=== PATIENT | female | born 1965 | race Caucasian/White ===

== ENCOUNTER 2016-10-11 15:24 | Outpatient (CLI) | payer MEDICAID | END 2016-10-11 15:25 | disposition home or self-care (01) | DX: G47.33 Obstructive sleep apnea (adult) (pediatric) (principal) ==

== ENCOUNTER 2016-11-08 13:31 | Outpatient (CLI) | payer MEDICAID | END 2016-11-08 13:32 | disposition home or self-care (01) | DX: G47.33 Obstructive sleep apnea (adult) (pediatric) (principal) ==

== ENCOUNTER 2016-12-27 13:26 | Outpatient (CLI) | payer MEDICAID | END 2016-12-27 13:27 | disposition home or self-care (01) | DX: G47.33 Obstructive sleep apnea (adult) (pediatric) (principal) ==

== ENCOUNTER 2017-02-09 13:30 | Outpatient (CLI) | payer MEDICAID | END 2017-02-09 13:31 | disposition home or self-care (01) | DX: G47.33 Obstructive sleep apnea (adult) (pediatric) (principal) ==

== ENCOUNTER 2017-03-23 13:30 | Outpatient (CLI) | payer MEDICAID | END 2017-03-23 13:31 | disposition home or self-care (01) | LOC: SC 13:30 | PROVIDERS: ATTEND Nurse Practitioner Family | DX: G47.33 Obstructive sleep apnea (adult) (pediatric) (principal) | CPT/HCPCS: 99212; 99214 ==

== ENCOUNTER 2017-04-26 13:53 | Outpatient (CLI) | payer MEDICAID | END 2017-04-26 13:54 | disposition home or self-care (01) | LOC: SC 13:53 | PROVIDERS: ATTEND Nurse Practitioner Family | DX: G47.33 Obstructive sleep apnea (adult) (pediatric) (principal) | CPT/HCPCS: 99212; 99214 ==

== ENCOUNTER 2017-05-26 13:16 | Outpatient (CLI) | payer MEDICAID | END 2017-05-26 13:17 | disposition home or self-care (01) | LOC: SC 13:16 | PROVIDERS: ATTEND Nurse Practitioner Family | DX: G47.33 Obstructive sleep apnea (adult) (pediatric) (principal) | CPT/HCPCS: 99212; 99214 ==

== ENCOUNTER 2017-07-05 15:01 | Outpatient (CLI) | payer MEDICAID | END 2017-07-05 15:02 | disposition home or self-care (01) | LOC: SC 15:01 | PROVIDERS: ATTEND Nurse Practitioner Family | DX: G47.33 Obstructive sleep apnea (adult) (pediatric) (principal) | CPT/HCPCS: 99212; 99214 ==

== ENCOUNTER 2017-08-27 14:06 | Emergency (ER) | payer MEDICAID ==
[2017-08-27 14:21] VITALS: BP 122/74
--- NOTE | 2017-08-27 14:48 | XRAY Preliminary Report ---
Exam: XR HAND 3 VIEW RT IMPRESSION: Tiny ossific density adjacent to the distal interphalangeal joint of the fifth finger may represent an age indeterminate avulsion injury; correlate clinically. No other findings suspicious f or acute fracture or dislocation. [facility] SITE ID: [id number]
--- NOTE | 2017-08-27 14:51 | XRAY Report ---
EXAM: RIGHT HAND RADIOGRAPHY EXAM DATE: 08/27/2017 02:39 PM. CLINICAL HISTORY: Pain fingers s/p fingers vs car door. COMPARISON: None. TECHNIQUE: 3 views. FINDINGS: Bones: Tiny ossific density adjacent to the distal interphalangeal joint of the fifth finger may repr esent a tiny avulsion injury, age indeterminate. No other findings suspicious for fracture or disloca tion. Joints: Normal. No subluxations. Soft Tissues: Normal. No soft tissue swelling. IMPRESSION: Tiny ossific density adjacent to the distal interphalangeal joint of the fifth finger may represent an age indeterminate avulsion injury; correlate clinically. No other findings suspicious f or acute fracture or dislocation. [facility] Referring Provider Line: [phone] SITE ID: [id number]
--- NOTE | 2017-08-27 15:41 | ED Physician Documentation ---
History of Present Illness - Stated complaint Stated Complaint: R FINGER INJ - Chief complaint Chief Complaint: Ext Problem - History obtained from History obtained from: Patient (pt staes that she shur her right hand into a car door yesterday across the fingers and now she thinks that her joints lookd different.) Review of Systems Cardiac: reports: Other (no change in circulation to the right hand.) Skin: denies: Rash, Lesions, Laceration (s) Musculoskeletal: reports: Joint pain, Other (pain to her right hand.) PD PAST MEDICAL HISTORY - Past Medical History Cardiovascular: Hypertension Respiratory: Sleep apnea, CPAP use Neuro: Seizure disorder Endocrine/Autoimmune: Type 2 diabetes GI: None : None HEENT: None Psych: Depression, Anxiety Musculoskeletal: Osteoarthritis Derm: None - Past Surgical History Past Surgical History: Yes General: Appendectomy Ortho: Carpal Tunnel surgery - Present Medications Home Medications: Ambulatory Orders Medication Instructions Recorded Confirmed Atomoxetine HCl [Strattera] 60 mg PO DAILY 04/06/13 08/27/17 PARoxetine [Paxil] 50 mg PO DAILY 04/06/13 08/27/17 Polyethylene Glycol 3350 [Miralax] 17 gm PO BID 04/06/13 08/27/17 lamoTRIgine [Lamictal Xr] 300 mg PO DAILY 04/06/13 08/27/17 Lisinopril 10 mg PO DAILY 02/21/15 08/27/17 Ascorbic Acid [Vitamin C] 1,000 mg PO DAILY 10/30/15 08/27/17 Calcium Carb/Mag Ox/Zinc Sulf [Hm 1 each PO DAILY 10/30/15 08/27/17 Tmhtmem-Jrfmlhtbs-Gysp Cplt] Cholecalciferol (Vitamin D3) 1,000 unit PO DAILY 10/30/15 08/27/17 [Vitamin D] Cholecalciferol (Vitamin D3) 1,000 unit PO DAILY 10/30/15 08/27/17 [Vitamin D] Multivitamin [Multivitamins] 1 each PO DAILY 10/30/15 08/27/17 - Allergies Allergies/Adverse Reactions: Allergies Allergy/AdvReac Type Severity Reaction Status Date / Time sertraline [From Zoloft] AdvReac Respiratory Verified 08/27/17 14:22 - Social History Does the pt smoke?: No Smoking Status: Never smoker Does the pt drink ETOH?: No Does the pt have substance abuse?: No - Immunizations Immunizations are current?: Yes - POLST Patient has POLST: No PD ED PE NORMAL - Vitals Vital signs reviewed: Yes - General General: Alert and oriented X 3 - HEENT HEENT: Atraumatic, Moist mucous membranes - Cardiac Cardiac: Strong equal pulses (radial) - Derm Derm: Normal color, Warm and dry, No rash - Extremities Extremities: Other (pt with full ROM of all of the joints in her right hand. no swelling, no deformity of the right hand. ) - Neuro Neuro: Other (sensation intact to light touch to the right hand) Results - Vitals Vitals: Vital Signs - 24 hr 08/27/17 14:18 Temperature 37 C Heart Rate 100 Respiratory 16 Rate Blood Pressure 122/74 O2 Saturation 100 Oxygen O2 Source Room air - Rads (name of study) hand Radiology: Final report received PD MEDICAL DECISION MAKING - ED course Complexity details: d/w patient ED course: pt with full ROM of all of the joints of the right hand. is not tender on the little finger so i doubt that the x-ray finding is new. i do not observe the concerns that she has with regard to the joints of her hand. Discussed with her. steffany LEE. Departure - Departure Disposition: 01 Home, Self Care Clinical Impression: Contusion of right hand Condition: Good Instructions: RON LEE Follow-Up: primary,care provider [Other] Comments: Follow up with your primary care provider. Return to the ER for any new symptoms.
== END 2017-08-27 16:13 | disposition home or self-care (01) ==
LOC: ED 14:06
DX: S60.221A Contusion of right hand, initial encounter (principal); W20.8XXA Other cause of strike by thrown, projected or falling object, initial encounter; I10 Essential (primary) hypertension; G47.30 Sleep apnea, unspecified; E11.9 Type 2 diabetes mellitus without complications; M19.90 Unspecified osteoarthritis, unspecified site
CPT/HCPCS: 99282; 99283

== ENCOUNTER 2017-08-29 14:28 | Outpatient (CLI) | payer MEDICAID ==
[2017-08-29 19:43] LABS: HEMOGLOBIN A1C 0.63 g/dL
== END 2017-08-29 14:29 ==
LOC: LAB.N 14:28
PROVIDERS: ATTEND Nurse Practitioner Gerontology
DX: E11.9 Type 2 diabetes mellitus without complications (principal)
CPT/HCPCS: 36415; 83036

== ENCOUNTER 2017-09-28 13:48 | Outpatient (CLI) | payer MEDICAID | END 2017-09-28 13:49 | disposition home or self-care (01) | LOC: SC 13:48 | PROVIDERS: ATTEND Nurse Practitioner Family | DX: G47.33 Obstructive sleep apnea (adult) (pediatric) (principal) | CPT/HCPCS: 99212; 99214 ==

== ENCOUNTER 2017-10-24 16:05 | Outpatient (CLI) | payer MEDICAID | END 2017-10-24 16:06 | disposition home or self-care (01) | LOC: DI 16:05 | PROVIDERS: ATTEND Obstetrics & Gynecology | DX: Z53.9 Procedure and treatment not carried out, unspecified reason (principal) ==

== ENCOUNTER 2017-10-31 10:01 | Outpatient (CLI) | payer MEDICAID ==
[2017-10-31 12:47] LABS: BASOPHILS # (AUTO) 0.1 10^3/uL (0.0-0.1); BASOPHILS % (AUTO) 1.3 %; EOSINOPHILS # (AUTO) 0.1 10^3/uL (0.0-0.7); HGB - HEMOGLOBIN 11.4 g/dL (12.0-16.0); LYMPHOCYTES # (AUTO) 0.7 10^3/uL (1.5-3.5); LYMPHOCYTES % (AUTO) 15.9 %; MEAN CORPUSCULAR HEMOGLOBIN 27.3 pg (27.0-31.0); MEAN CORPUSCULAR HGB CONC 34.6 g/dL (32.0-36.0); MEAN CORPUSCULAR VOLUME 78.8 fL (81.0-99.0); MEAN PLATELET VOLUME 7.2 fL (7.9-10.8); MONOCYTES # (AUTO) 0.3 10^3/uL (0.0-1.0); MONOCYTES % (AUTO) 7.1 %; NEUTROPHILS # (AUTO) 3.1 10^3/uL (1.5-6.6); NEUTROPHILS % (AUTO) 72.7 %; PLT - PLATELET COUNT 322 10^3/uL (130-450); RED BLOOD COUNT 4.18 10^6/uL (4.20-5.40); RED CELL DISTRIBUTION WIDTH 15.3 % (12.0-15.0); WHITE BLOOD COUNT 4.3 x10^3/uL (4.8-10.8)
[2017-10-31 13:15] LABS: ALBUMIN 4.2 g/dL (3.2-5.5); ALBUMIN/GLOBULIN RATIO 1.5 (1.0-2.2); ALKALINE PHOSPHATASE 55 IU/L (42-121); ALT ALANINE AMINOTRANSFERASE 23 IU/L (10-60); AST ASPARTATE AMINOTRANSFERASE 29 IU/L (10-42); BILIRUBIN,TOTAL 0.6 mg/dL (0.2-1.0); BUN - BLOOD UREA NITROGEN 21 mg/dL (6-20); CALCIUM 9.2 mg/dL (8.5-10.3); CARBON DIOXIDE - CO2 26 mmol/L (21-32); CHLORIDE 103 mmol/L (101-111); CHOL/HDL RATIO 3.2 (<4.4); CHOLESTEROL 194 mg/dL; CREATININE 0.9 mg/dL (0.4-1.0); GFR - MDRD 66 (>89); GLUCOSE 111 mg/dL (70-100); HDL CHOLESTEROL 60 mg/dL; LDL CHOLESTEROL,CALCULATED 123 mg/dL; LDL/HDL RATIO 2.1 (<4.4); SODIUM 136 mmol/L (135-145); VLDL CHOLESTEROL 11 mg/dL
== END 2017-10-31 10:02 | disposition home or self-care (01) ==
LOC: LAB.N 10:01
PROVIDERS: ATTEND Nurse Practitioner Gerontology
DX: Z13.9 Encounter for screening, unspecified (principal)
CPT/HCPCS: 36415; 80053; 80061; 80175; 83721; 84443; 85025

== ENCOUNTER 2017-11-21 14:34 | Outpatient (CLI) | payer MEDICAID ==
--- NOTE | 2017-11-21 15:43 | Mammography Report ---
DIGITAL DIAGNOSTIC BILATERAL MAMMOGRAM: 11/21/2017 CLINICAL INDICATION: Focal pain in the left upper outer periareolar breast. TECHNIQUE: Bilateral CC and MLO views, left true lateral view. Markers were placed at the site of maximal tenderness identified by the patient. COMPARISON: 07/15/2016, 01/13/2016, 06/30/2015, 11/22/2014, 05/20/2014, 05/03/2014, 05/24/2013, 02/14/2012, 11/06/2010, 05/11/2010. FINDINGS: The breasts demonstrate heterogeneously dense fibroglandular parenchyma bilaterally. Coarse and punctate, typically benign calcifications are present. No suspicious masses, clustered microcalcifications, or regions of architectural distortion are identified. Specifically, no mammographic abnormality is appreciated in the region of pain identified by the patient in the left upper outer anterior breast. IMPRESSION: BENIGN FINDINGS. RECOMMENDATION: ROUTINE ANNUAL SCREENING UNLESS OTHERWISE CLINICALLY INDICATED. BIRADS CATEGORY 2-BENIGN FINDINGS. STANDARD QUALIFYING STATEMENTS: 1. This examination was reviewed with the aid of Computer-Aided Detection (CAD). 2. A negative or benign imaging report should not delay biopsy if clinically suspicious findings are present. Consider surgical consultation if warranted. More than 5% of cancers are not identified by imaging. 3. Dense breasts may obscure an underlying neoplasm. TD: 11/21/2017 15:42
== END 2017-11-21 14:35 | disposition home or self-care (01) ==
LOC: DI 14:34
PROVIDERS: ATTEND Obstetrics & Gynecology
DX: N64.4 Mastodynia (principal)
CPT/HCPCS: 77066

== ENCOUNTER 2017-11-28 15:02 | Outpatient (CLI) | payer MEDICAID | END 2017-11-28 15:03 | disposition home or self-care (01) | LOC: SC 15:02 | PROVIDERS: ATTEND Nurse Practitioner Family | DX: G47.33 Obstructive sleep apnea (adult) (pediatric) (principal) | CPT/HCPCS: 99212; 99214 ==

== ENCOUNTER 2018-01-03 10:06 | Outpatient (CLI) | payer MEDICAID | END 2018-01-03 10:07 | disposition home or self-care (01) | LOC: SC 10:06 | PROVIDERS: ATTEND Nurse Practitioner Family | DX: G47.33 Obstructive sleep apnea (adult) (pediatric) (principal) | CPT/HCPCS: 99212; 99214 ==

== ENCOUNTER 2018-02-13 14:55 | Outpatient (CLI) | payer MEDICAID | END 2018-02-13 14:56 | disposition home or self-care (01) | LOC: SC 14:55 | PROVIDERS: ATTEND Nurse Practitioner Family | DX: G47.33 Obstructive sleep apnea (adult) (pediatric) (principal) | CPT/HCPCS: 99214 ==

== ENCOUNTER 2018-04-17 13:26 | Outpatient (CLI) | payer MEDICAID | END 2018-04-17 13:27 | disposition home or self-care (01) | LOC: SC 13:26 | PROVIDERS: ATTEND Nurse Practitioner Family | DX: G47.33 Obstructive sleep apnea (adult) (pediatric) (principal) | CPT/HCPCS: 99212; 99214 ==

== ENCOUNTER 2018-04-26 15:14 | Emergency (ER) | payer MEDICAID ==
[2018-04-26 15:22] VITALS: BP 133/81
--- NOTE | 2018-04-26 16:21 | ED Physician Documentation ---
PD HPI LOWER EXT INJURY - Stated complaint Stated Complaint: RT KNEE PX - Chief complaint Chief Complaint: Ext Problem - History obtained from History obtained from: Patient PD PAST MEDICAL HISTORY - Past Medical History Cardiovascular: Hypertension Respiratory: Sleep apnea, CPAP use Endocrine/Autoimmune: Type 2 diabetes GI: None : None HEENT: None Psych: Depression, Anxiety Musculoskeletal: Osteoarthritis Derm: None - Past Surgical History Past Surgical History: Yes General: Appendectomy Ortho: Carpal Tunnel surgery - Present Medications Home Medications: Ambulatory Orders Medication Instructions Recorded Confirmed Atomoxetine HCl [Strattera] 60 mg PO DAILY 04/06/13 08/27/17 PARoxetine [Paxil] 50 mg PO DAILY 04/06/13 08/27/17 Polyethylene Glycol 3350 [Miralax] 17 gm PO BID 04/06/13 08/27/17 lamoTRIgine [Lamictal Xr] 300 mg PO DAILY 04/06/13 08/27/17 Lisinopril 10 mg PO DAILY 02/21/15 08/27/17 Ascorbic Acid [Vitamin C] 1,000 mg PO DAILY 10/30/15 08/27/17 Calcium Carb/Mag Ox/Zinc Sulf [Hm 1 each PO DAILY 10/30/15 08/27/17 Ijqvwkm-Wrckrnjge-Auvq Cplt] Cholecalciferol (Vitamin D3) 1,000 unit PO DAILY 10/30/15 08/27/17 [Vitamin D] Cholecalciferol (Vitamin D3) 1,000 unit PO DAILY 10/30/15 08/27/17 [Vitamin D] Multivitamin [Multivitamins] 1 each PO DAILY 10/30/15 08/27/17 - Allergies Allergies/Adverse Reactions: Allergies Allergy/AdvReac Type Severity Reaction Status Date / Time sertraline [From Zoloft] AdvReac Respiratory Verified 04/26/18 15:23 - Social History Does the pt smoke?: No Smoking Status: Never smoker Does the pt drink ETOH?: No Does the pt have substance abuse?: No - Immunizations Immunizations are current?: Yes - POLST Patient has POLST: No Results - Vitals Vitals: Vital Signs - 24 hr 04/26/18 15:19 Temperature 36.4 C L Heart Rate 68 Respiratory 16 Rate Blood Pressure 133/81 H O2 Saturation 99 Oxygen O2 Source Room air PD MEDICAL DECISION MAKING - Sepsis Event Vital Signs: Vital Signs - 24 hr 04/26/18 15:19 Temperature 36.4 C L Heart Rate 68 Respiratory 16 Rate Blood Pressure 133/81 H O2 Saturation 99 Oxygen O2 Source Room air
== END 2018-04-26 17:00 | disposition left against medical advice (07) ==
LOC: ED 15:14
DX: Z53.21 Procedure and treatment not carried out due to patient leaving prior to being seen by health care provider (principal)

== ENCOUNTER 2018-05-05 15:01 | Outpatient (CLI) | payer MEDICAID ==
[2018-05-05 18:54] LABS: BASOPHILS % (AUTO) 0.5 %; EOSINOPHILS # (AUTO) 0.2 10^3/uL (0.0-0.7); EOSINOPHILS % (AUTO) 3.6 %; HGB - HEMOGLOBIN 12.9 g/dL (12.0-16.0); LYMPHOCYTES % (AUTO) 15.5 %; MEAN CORPUSCULAR HEMOGLOBIN 29.6 pg (27.0-31.0); MEAN CORPUSCULAR HGB CONC 33.4 g/dL (32.0-36.0); MEAN CORPUSCULAR VOLUME 88.6 fL (81.0-99.0); MEAN PLATELET VOLUME 7.6 fL (7.9-10.8); MONOCYTES # (AUTO) 0.4 10^3/uL (0.0-1.0); NEUTROPHILS % (AUTO) 74.4 %; PLT - PLATELET COUNT 309 10^3/uL (130-450); RED BLOOD COUNT 4.37 10^6/uL (4.20-5.40); RED CELL DISTRIBUTION WIDTH 15.2 % (12.0-15.0); WHITE BLOOD COUNT 6.7 x10^3/uL (4.8-10.8)
[2018-05-05 19:46] LABS: ALBUMIN 3.8 g/dL (3.2-5.5); ALBUMIN/GLOBULIN RATIO 1.2 (1.0-2.2); BILIRUBIN,TOTAL 0.5 mg/dL (0.2-1.0); CALCIUM 9.2 mg/dL (8.5-10.3); CREATININE 0.7 mg/dL (0.4-1.0); TOTAL PROTEIN 7.1 g/dL (6.7-8.2)
== END 2018-05-05 15:02 | disposition home or self-care (01) ==
LOC: LAB.N 15:01
PROVIDERS: ATTEND Nurse Practitioner
DX: K64.8 Other hemorrhoids (principal); K64.4 Residual hemorrhoidal skin tags; K62.5 Hemorrhage of anus and rectum
CPT/HCPCS: 36415; 80053; 85025

== ENCOUNTER 2018-05-16 16:50 | Outpatient (CLI) | payer MEDICAID | END 2018-05-16 16:51 | disposition home or self-care (01) | LOC: LAB.R 16:50 | PROVIDERS: ATTEND Nurse Practitioner | DX: K64.8 Other hemorrhoids (principal); K64.4 Residual hemorrhoidal skin tags; K62.5 Hemorrhage of anus and rectum | CPT/HCPCS: 82270 ==

== ENCOUNTER 2018-05-19 02:12 | Emergency (ER) | payer MEDICAID ==
[2018-05-19 03:19] LABS: BILIRUBIN,URINE NEGATIVE (NEGATIVE); GLUCOSE, URINE (UA) NEGATIVE (NEGATIVE); KETONES,URINE (UA) NEGATIVE (NEGATIVE); LEUKOCYTE ESTERASE, URINE NEGATIVE (NEGATIVE); NITRITE,URINE NEGATIVE (NEGATIVE); OCCULT BLOOD,URINE NEGATIVE (NEGATIVE); PH,URINE 6.5 PH (5.0-7.5); PROTEIN,URINE NEGATIVE (NEGATIVE); UROBILINOGEN,URINE 0.2 (NORMAL) E.U./dL (NORMAL)
[2018-05-19 03:21] LABS: CLARITY,URINE CLEAR (CLEAR); HCG UR QUAL NEGATIVE
--- NOTE | 2018-05-19 04:34 | ED Physician Documentation ---
History of Present Illness - Stated complaint Stated Complaint: FEMALE - Chief complaint Chief Complaint: Abd Pain - History obtained from History obtained from: Patient - History of Present Illness Timing: How many days ago (2-3), Other (episodic for a few years, but has not seen a doctor for this, as episodes have been mild and self limited. past few days, increasingly frequent episodes that take longer to resolve) Pain level max: 8 Pain level now: 1 Quality: sharp Improved by: nothing Worsened by: eating Review of Systems Constitutional: reports: Reviewed and negative Cardiac: reports: Reviewed and negative Respiratory: reports: Reviewed and negative GI: reports: Abdominal Pain. denies: Nausea, Vomiting, Constipation, Diarrhea : denies: Dysuria, Frequency Musculoskeletal: denies: Back pain PD PAST MEDICAL HISTORY - Past Medical History Past Medical History: Yes Cardiovascular: Hypertension Respiratory: Sleep apnea, CPAP use Endocrine/Autoimmune: Type 2 diabetes GI: None : None HEENT: None Psych: Depression, Anxiety Musculoskeletal: Osteoarthritis Derm: None - Past Surgical History Past Surgical History: Yes General: Appendectomy Ortho: Carpal Tunnel surgery - Present Medications Home Medications: Ambulatory Orders Medication Instructions Recorded Confirmed Atomoxetine HCl [Strattera] 60 mg PO DAILY 04/06/13 08/27/17 PARoxetine [Paxil] 50 mg PO DAILY 04/06/13 08/27/17 Polyethylene Glycol 3350 [Miralax] 17 gm PO BID 04/06/13 08/27/17 lamoTRIgine [Lamictal Xr] 300 mg PO DAILY 04/06/13 08/27/17 Lisinopril 10 mg PO DAILY 02/21/15 08/27/17 Ascorbic Acid [Vitamin C] 1,000 mg PO DAILY 10/30/15 08/27/17 Calcium Carb/Mag Ox/Zinc Sulf [Hm 1 each PO DAILY 10/30/15 08/27/17 Rihswql-Wqmzjixvf-Tjce Cplt] Cholecalciferol (Vitamin D3) 1,000 unit PO DAILY 10/30/15 08/27/17 [Vitamin D] Cholecalciferol (Vitamin D3) 1,000 unit PO DAILY 10/30/15 08/27/17 [Vitamin D] Multivitamin [Multivitamins] 1 each PO DAILY 10/30/15 08/27/17 - Allergies Allergies/Adverse Reactions: Allergies Allergy/AdvReac Type Severity Reaction Status Date / Time sertraline [From Zoloft] AdvReac Respiratory Verified 05/19/18 02:24 - Social History Does the pt smoke?: No Smoking Status: Never smoker Does the pt drink ETOH?: No Does the pt have substance abuse?: No - Immunizations Immunizations are current?: Yes - POLST Patient has POLST: No PD ED PE NORMAL - Vitals Vital signs reviewed: Yes - General General: Alert and oriented X 3, No acute distress, Well developed/nourished - Cardiac Cardiac: RRR, No murmur - Respiratory Respiratory: No respiratory distress, Clear bilaterally - Abdomen Abdomen: Soft, Non tender, Non distended - Back Back: No CVA TTP - Derm Derm: Normal color, Warm and dry, No rash Results - Vitals Vitals: Vital Signs - 24 hr 05/19/18 05/19/18 05/19/18 05:16 06:58 07:27 Temperature 36.7 C 36.7 C 97.9 C H Heart Rate 72 70 74 Respiratory 16 14 16 Rate Blood Pressure 119/72 120/72 124/76 O2 Saturation 98 100 97 Oxygen O2 Source Room air - Labs Labs: Laboratory Tests 05/19/18 05/19/18 05/19/18 02:50 02:50 05:28 WBC 5.0 RBC 4.11 L Hgb 12.1 Hct 36.7 L MCV 89.3 MCH 29.5 MCHC 33.0 RDW 14.4 Plt Count 309 MPV 7.0 L Neut # (Auto) 3.3 Lymph # (Auto) 1.1 L [place] # (Auto) 0.3 Eos # (Auto) 0.3 Baso # (Auto) 0.1 Absolute Nucleated RBC 0.00 Nucleated RBC % 0.0 Sodium Potassium Chloride Carbon Dioxide Anion Gap BUN Creatinine Estimated GFR (MDRD) Glucose Calcium Total Bilirubin AST ALT Alkaline Phosphatase Total Protein Albumin Globulin Albumin/Globulin Ratio Lipase Urine Color YELLOW Urine Clarity CLEAR Urine pH 6.5 Ur Specific [place] <=1.005 <1.005 Urine Protein NEGATIVE Urine Glucose (UA) NEGATIVE Urine Ketones NEGATIVE Urine Occult Blood NEGATIVE Urine Nitrite NEGATIVE Urine Bilirubin NEGATIVE Urine Urobilinogen 0.2 (NORMAL) Ur Leukocyte Esterase NEGATIVE Ur Microscopic Review NOT INDICATED Urine Culture Comments NOT INDICATED Urine HCG, Qual NEGATIVE 05/19/18 05:28 WBC RBC Hgb Hct MCV MCH MCHC RDW Plt Count MPV Neut # (Auto) Lymph # (Auto) [place] # (Auto) Eos # (Auto) Baso # (Auto) Absolute Nucleated RBC Nucleated RBC % Sodium 137 Potassium 4.2 Chloride 104 Carbon Dioxide 28 Anion Gap 5.0 L BUN 24 H Creatinine 0.8 Estimated GFR (MDRD) 76 L Glucose 129 H Calcium 8.9 Total Bilirubin 0.3 AST 25 ALT 26 Alkaline Phosphatase 58 Total Protein 6.9 Albumin 3.9 Globulin 3.0 Albumin/Globulin Ratio 1.3 Lipase 33 Urine Color Urine Clarity Urine pH Ur Specific [place] Urine Protein Urine Glucose (UA) Urine Ketones Urine Occult Blood Urine Nitrite Urine Bilirubin Urine Urobilinogen Ur Leukocyte Esterase Ur Microscopic Review Urine Culture Comments Urine HCG, Qual - Rads (name of study) RUQ US Radiology: Prelim report reviewed, See rad report PD MEDICAL DECISION MAKING - ED course Complexity details: reviewed results, re-evaluated patient, considered differential, d/w patient - Sepsis Event Vital Signs: Vital Signs - 24 hr 05/19/18 05/19/18 05/19/18 05:16 06:58 07:27 Temperature 36.7 C 36.7 C 97.9 C H Heart Rate 72 70 74 Respiratory 16 14 16 Rate Blood Pressure 119/72 120/72 124/76 O2 Saturation 98 100 97 Oxygen O2 Source Room air Departure - Departure Disposition: 01 Home, Self Care Clinical Impression: Abdominal pain Condition: Good Instructions: ED Abdominal Pain Unkn Cause Follow-Up: [facility] [Provider Group] [facility] [Provider Group] Comments: Follow up with your primary care provider; call to arrange for next available appointment. As we discussed, I recommend you take either Prilosec or Nexium once per day for 2 weeks. Both of these are available [id number]: no prescription is required. These are acid-reducing medications and often help with symptoms due to gastritis or ulcer, which might be the cause of your symptoms. Discharge Date/Time: 05/19/18 07:40
[2018-05-19 05:40] LABS: BASOPHILS # (AUTO) 0.1 10^3/uL (0.0-0.1); BASOPHILS % (AUTO) 1.1 %; EOSINOPHILS # (AUTO) 0.3 10^3/uL (0.0-0.7); EOSINOPHILS % (AUTO) 5.3 %; HGB - HEMOGLOBIN 12.1 g/dL (12.0-16.0); LYMPHOCYTES # (AUTO) 1.1 10^3/uL (1.5-3.5); LYMPHOCYTES % (AUTO) 22.1 %; MEAN CORPUSCULAR HEMOGLOBIN 29.5 pg (27.0-31.0); MEAN CORPUSCULAR VOLUME 89.3 fL (81.0-99.0); MONOCYTES # (AUTO) 0.3 10^3/uL (0.0-1.0); MONOCYTES % (AUTO) 5.8 %; NEUTROPHILS # (AUTO) 3.3 10^3/uL (1.5-6.6); NEUTROPHILS % (AUTO) 65.7 %; PLT - PLATELET COUNT 309 10^3/uL (130-450); RED BLOOD COUNT 4.11 10^6/uL (4.20-5.40); RED CELL DISTRIBUTION WIDTH 14.4 % (12.0-15.0)
[2018-05-19 05:53] LABS: ALBUMIN 3.9 g/dL (3.2-5.5); ALBUMIN/GLOBULIN RATIO 1.3 (1.0-2.2); BILIRUBIN,TOTAL 0.3 mg/dL (0.2-1.0); CALCIUM 8.9 mg/dL (8.5-10.3); CREATININE 0.8 mg/dL (0.4-1.0); TOTAL PROTEIN 6.9 g/dL (6.7-8.2)
--- NOTE | 2018-05-19 06:38 | Ultrasound Report ---
Procedure Date: 05/19/2018 Accession Number: [id number] / [id number] Procedure: US - Abdomen Limited CPT Code: FULL RESULT: EXAM: ABDOMEN ULTRASOUND LIMITED, RUQ EXAM DATE: 05/19/2018 05:50 AM. CLINICAL HISTORY: RUQ pain. COMPARISON: ABDOMEN 08/15/2009. TECHNIQUE: Real-time scanning was performed with static images obtained. FINDINGS: Liver: Normal in size and echotexture. 17.7 cm. Main portal vein flow: Hepatopetal. Gallbladder: Normal. No stones, wall thickening, or sonographic Davidson's sign. Biliary System: CBD measures 3 mm. No intrahepatic or extrahepatic ductal dilatation. Other: No free fluid. No right hydronephrosis. IMPRESSION: Normal. No cholelithiasis or cholecystitis. [facility]
[2018-05-19 07:28] VITALS: BP 124/76
== END 2018-05-19 07:40 | disposition home or self-care (01) ==
LOC: ED 02:12
DX: R10.9 Unspecified abdominal pain (principal); I10 Essential (primary) hypertension; E11.9 Type 2 diabetes mellitus without complications
CPT/HCPCS: 36415; 76705; 80053; 81001; 81003; 81025; 83690; 85025; 87086; 93005; 99283

== ENCOUNTER 2018-06-15 20:29 | Emergency (ER) | payer MEDICAID ==
[2018-06-15 21:17] LABS: BILIRUBIN,URINE NEGATIVE (NEGATIVE); CLARITY,URINE CLEAR (CLEAR); GLUCOSE, URINE (UA) NEGATIVE (NEGATIVE); KETONES,URINE (UA) NEGATIVE (NEGATIVE); LEUKOCYTE ESTERASE, URINE NEGATIVE (NEGATIVE); NITRITE,URINE NEGATIVE (NEGATIVE); OCCULT BLOOD,URINE NEGATIVE (NEGATIVE); PROTEIN,URINE NEGATIVE (NEGATIVE); UROBILINOGEN,URINE 0.2 (NORMAL) E.U./dL (NORMAL)
--- NOTE | 2018-06-15 21:43 | ED Physician Documentation ---
PD HPI FEMALE - Stated complaint Stated Complaint: FEMALE /BACK PX - Chief complaint Chief Complaint: UTI - History obtained from History obtained from: Patient - History of Present Illness Timing - onset: Other (She had a bladder infection about a month ago treated with Cipro. More recently over the last 2 weeks or so she has intermittent dysuria and feeling like she is has incomplete bladder emptying and frequency with occasional right flank pain. No fevers, chills, nausea, vomiting. No vaginal discharge.) Review of Systems Constitutional: denies: Fever, Chills GI: denies: Abdominal Pain, Nausea, Vomiting, Constipation, Diarrhea : reports: Dysuria, Frequency. denies: Incontinent, Hematuria PD PAST MEDICAL HISTORY - Past Medical History Cardiovascular: Hypertension Respiratory: Sleep apnea, CPAP use Endocrine/Autoimmune: Type 2 diabetes GI: None : None HEENT: None Psych: Depression, Anxiety Musculoskeletal: Osteoarthritis Derm: None - Past Surgical History Past Surgical History: Yes General: Appendectomy Ortho: Carpal Tunnel surgery - Present Medications Home Medications: Ambulatory Orders Medication Instructions Recorded Confirmed Atomoxetine HCl [Strattera] 60 mg PO DAILY 04/06/13 08/27/17 PARoxetine [Paxil] 50 mg PO DAILY 04/06/13 08/27/17 Polyethylene Glycol 3350 [Miralax] 17 gm PO BID 04/06/13 08/27/17 lamoTRIgine [Lamictal Xr] 300 mg PO DAILY 04/06/13 08/27/17 Lisinopril 10 mg PO DAILY 02/21/15 08/27/17 Ascorbic Acid [Vitamin C] 1,000 mg PO DAILY 10/30/15 08/27/17 Calcium Carb/Mag Ox/Zinc Sulf [Hm 1 each PO DAILY 10/30/15 08/27/17 Cnahxla-Baompelun-Zmja Cplt] Cholecalciferol (Vitamin D3) 1,000 unit PO DAILY 10/30/15 08/27/17 [Vitamin D] Cholecalciferol (Vitamin D3) 1,000 unit PO DAILY 10/30/15 08/27/17 [Vitamin D] Multivitamin [Multivitamins] 1 each PO DAILY 10/30/15 08/27/17 - Allergies Allergies/Adverse Reactions: Allergies Allergy/AdvReac Type Severity Reaction Status Date / Time sertraline [From Zoloft] AdvReac Respiratory Verified 06/15/18 20:45 - Social History Does the pt smoke?: No Smoking Status: Never smoker Does the pt drink ETOH?: No Does the pt have substance abuse?: No - Immunizations Immunizations are current?: Yes - POLST Patient has POLST: No PD ED PE NORMAL - Vitals Vital signs reviewed: Yes - General General: Alert and oriented X 3, No acute distress - Abdomen Abdomen: Normal bowel sounds, Soft, Non tender - Back Back: No CVA TTP - Extremities Extremities: No edema, No calf tenderness / cord - Neuro Neuro: Alert and oriented X 3, Normal speech Results - Vitals Vitals: Vital Signs - 24 hr 06/15/18 20:41 Temperature 36 C L Heart Rate 92 Respiratory 16 Rate Blood Pressure 138/77 H O2 Saturation 100 Oxygen O2 Source Room air - Labs Labs: Laboratory Tests 06/15/18 20:50 Urine Color YELLOW Urine Clarity CLEAR Urine pH 6.0 Ur Specific [place] 1.020 Urine Protein NEGATIVE Urine Glucose (UA) NEGATIVE Urine Ketones NEGATIVE Urine Occult Blood NEGATIVE Urine Nitrite NEGATIVE Urine Bilirubin NEGATIVE Urine Urobilinogen 0.2 (NORMAL) Ur Leukocyte Esterase NEGATIVE Ur Microscopic Review NOT INDICATED Urine Culture Comments NOT INDICATED PD MEDICAL DECISION MAKING - ED course ED course: She has intermittent UTI-like symptoms with a benign examination and cyst. Her symptoms are almost subacute. Urology follow-up was advised if they are persistent. - Sepsis Event Vital Signs: Vital Signs - 24 hr 06/15/18 20:41 Temperature 36 C L Heart Rate 92 Respiratory 16 Rate Blood Pressure 138/77 H O2 Saturation 100 Oxygen O2 Source Room air Departure - Departure Disposition: 01 Home, Self Care Clinical Impression: Dysuria Hypertension Qualifiers: Hypertension type: essential hypertension Qualified Code(s): I10 - Essential (primary) hypertension Condition: Good Record reviewed to determine appropriate education?: Yes Instructions: ED Dysuria Uncertain Cause Comments: If you have persistent symptoms, with your doctor about referral to a urologist. Return for new or worsening symptoms.
[2018-06-15 22:10] VITALS: BP 134/75
== END 2018-06-15 22:10 | disposition home or self-care (01) ==
LOC: ED 20:29
DX: R30.0 Dysuria (principal); I10 Essential (primary) hypertension
CPT/HCPCS: 81001; 81003; 87086; 99282; 99283

== ENCOUNTER 2018-07-10 15:18 | Outpatient (CLI) | payer MEDICAID | END 2018-07-10 15:19 | disposition home or self-care (01) | LOC: SC 15:18 | PROVIDERS: ATTEND Nurse Practitioner Family | DX: G47.33 Obstructive sleep apnea (adult) (pediatric) (principal) | CPT/HCPCS: 99212; 99214 ==

== ENCOUNTER 2018-08-14 15:27 | Outpatient (CLI) | payer MEDICAID | END 2018-08-14 15:28 | disposition home or self-care (01) | LOC: SC 15:27 | PROVIDERS: ATTEND Nurse Practitioner Family | DX: G47.33 Obstructive sleep apnea (adult) (pediatric) (principal) | CPT/HCPCS: 99212; 99214 ==

== ENCOUNTER 2018-08-29 14:25 | Outpatient (CLI) | payer MEDICAID | END 2018-08-29 14:26 | disposition home or self-care (01) | LOC: SC 14:25 | PROVIDERS: ATTEND Nurse Practitioner Family | DX: G47.33 Obstructive sleep apnea (adult) (pediatric) (principal) | CPT/HCPCS: 99212; 99214 ==

== ENCOUNTER 2018-08-31 16:25 | Outpatient (CLI) | payer MEDICAID ==
--- NOTE | 2018-09-19 13:54 | XRAY Report ---
Reason: pain/swelling Procedure Date: 08/31/2018 Accession Number: [id number] / [id number] Procedure: XRN - Hand 3 View LT CPT Code: FULL RESULT: EXAM: LEFT HAND RADIOGRAPHY EXAM DATE: 08/31/2018 04:40 PM. CLINICAL HISTORY: Left hand pain/swelling. COMPARISON: None. TECHNIQUE: 3 views. FINDINGS: Bones: Normal. No fractures or bone lesions. Joints: Normal. No subluxations. Soft Tissues: Normal. No soft tissue swelling. IMPRESSION: Normal hand radiography. [facility]
== END 2018-08-31 16:26 | disposition home or self-care (01) ==
LOC: DI.N 16:25
PROVIDERS: ATTEND Internal Medicine
DX: M79.645 Pain in left finger(s) (principal)

== ENCOUNTER 2018-11-22 15:15 | Outpatient (CLI) | payer MEDICAID ==
--- NOTE | 2018-11-23 08:31 | Mammography Report ---
Reason: SCREENING MAMMO Procedure Date: 11/22/2018 Accession Number: [id number] / [id number] Procedure: ODALIS - Screening Mammo w/Luc CPT Code: FULL RESULT: EXAM: Screening Mammo w/Luc DATE: 11/22/2018 4:32 PM CLINICAL HISTORY: Screening encounter. Family history of breast cancer in 2 aunts at the age of 61 or 62. TECHNIQUE: Bilateral CC and MLO views were obtained. A left laterally exaggerated CC view was obtained. COMPARISON: 11/21/2017 through 05/03/2014. FINDINGS: The breasts demonstrate scattered fibroglandular densities bilaterally. Coarse typically benign calcifications are present. No suspicious masses, clustered microcalcifications, or regions of architectural distortion are identified. IMPRESSION: Benign findings RECOMMENDATION: Routine annual screening unless otherwise clinically indicated. BIRADS CATEGORY 2: Benign findings STANDARD QUALIFYING STATEMENTS: 1. This examination was not reviewed with the aid of Computer-Aided Detection (CAD). 2. A negative or benign imaging report should not delay biopsy if clinically suspicious findings are present. Consider surgical consultation if warrented. More than 5% of cancers are not identified by imaging. 3. Dense breasts may obscure an underlying neoplasm. 4. This examination was reviewed with the aid of 3D breast imaging (tomosynthesis).
== END 2018-11-22 15:16 | disposition home or self-care (01) ==
LOC: DI 15:15
PROVIDERS: ATTEND Internal Medicine
DX: Z12.31 Encounter for screening mammogram for malignant neoplasm of breast (principal); Z80.3 Family history of malignant neoplasm of breast
CPT/HCPCS: 77063; 77067

== ENCOUNTER 2019-01-01 11:22 | Outpatient (CLI) | payer MEDICAID | END 2019-01-01 11:23 | disposition home or self-care (01) | LOC: SC 11:22 | PROVIDERS: ATTEND Nurse Practitioner Family | DX: G47.33 Obstructive sleep apnea (adult) (pediatric) (principal) | CPT/HCPCS: 99212; 99214 ==

== ENCOUNTER 2019-02-05 15:02 | Outpatient (CLI) | payer MEDICAID | END 2019-02-05 15:03 | disposition home or self-care (01) | LOC: SC 15:02 | PROVIDERS: ATTEND Nurse Practitioner Family | DX: G47.33 Obstructive sleep apnea (adult) (pediatric) (principal) | CPT/HCPCS: 99212; 99214 ==

== ENCOUNTER 2019-02-12 13:34 | Outpatient (CLI) | payer MEDICAID ==
--- NOTE | 2019-02-12 15:22 | XRAY Report ---
Reason: ARTHRITIS Procedure Date: 02/12/2019 Accession Number: [id number] / [id number] Procedure: XR - Knee 3 View BILAT CPT Code: FULL RESULT: EXAMS: 1. RIGHT KNEE RADIOGRAPHY. 2. LEFT KNEE RADIOGRAPHY. EXAM DATE: 02/12/2019 02:01 PM. CLINICAL HISTORY:Arthritis. COMPARISON: None. TECHNIQUE: 3 views each. FINDINGS: Right Knee: Bones: Normal. No fractures or bone lesions. Joints: Normal. No effusion. No subluxations. Soft Tissues: Normal. No soft tissue swelling. Left Knee: Bones: Normal. No fractures or bone lesions. Joints: Normal. No effusion. No subluxations. Soft Tissues: Normal. No soft tissue swelling. IMPRESSION: No acute bony abnormality. [facility]
== END 2019-02-12 13:35 | disposition home or self-care (01) ==
LOC: DI 13:34
PROVIDERS: ATTEND Internal Medicine
DX: M13.869 Other specified arthritis, unspecified knee (principal)

== ENCOUNTER 2019-03-29 08:58 | Outpatient (CLI) | payer MEDICAID | END 2019-03-29 08:59 | disposition home or self-care (01) | LOC: SC 08:58 | PROVIDERS: ATTEND Nurse Practitioner Family | DX: G47.33 Obstructive sleep apnea (adult) (pediatric) (principal) | CPT/HCPCS: 99212; 99214 ==

== ENCOUNTER 2019-05-29 12:42 | Emergency (ER) | payer MEDICAID ==
[2019-05-29 12:48] VITALS: BP 129/78
[2019-05-29] MEDS ORDERED: diphenhydrAMINE 25 MG CAPSULE PO STA (14:10)
[2019-05-29] MEDS ORDERED: predniSONE 20 MG TABLET PO STA (14:10)
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
== END 2019-05-29 14:34 | disposition home or self-care (01) ==
LOC: ED 12:42
DX: T63.441A Toxic effect of venom of bees, accidental (unintentional), initial encounter (principal); M79.89 Other specified soft tissue disorders; I10 Essential (primary) hypertension; E11.9 Type 2 diabetes mellitus without complications
CPT/HCPCS: 99282; A9270; J7512

== ENCOUNTER 2019-07-03 09:24 | Outpatient (CLI) | payer MEDICAID ==
[2019-07-03 10:34] VITALS: BP 110/70
--- NOTE | 2019-07-03 10:34 | SLEEP CARE CONSULTATION ---
Information from patient questionnaire entered by Sonal Hernandez. I have reviewed and concur with the information entered by Sonal Hernandez. This document represents the service I personally performed and the decisions made by me, Destini Hui, RN, MSN, SUPERVISOR TUNNEL HEADING. History of Present Illness Previous diagnosis: Mild, Obstructive Sleep Apnea-Hypopnea Syndrome AHI: 10.4 Reason for CPAP/BiPAP follow up: other (2 month follow up) Equipment type: CPAP Equipment obtained from: [employer] Mask style: Full face Backup mask available: Yes Last cushion change: a month ago Prior sleep studies: Yes Year and Where: 2012 [facility] additional information: She did not complete sleep log as advised. She did not follow up with Dr. Hameed for referral wildlife control operator to assist her sleep needs. He has also encouraged her to have a regular sleep schedule. Since last seen, she has attended a diabetic class for education. She feels it has helped her realize changes she needs to make in lifestyle. Her spouse has also encouraged her to get more rest as he cannot always drive her when she is too tired to drive. She is aware not to drive sleepy due to risk of accident. She now has an early appointment with her daughters activities and is aware she needs to go to bed earlier. She has made some success in getting to bed earlier but not consistently. She feels it will take a better planning and routine such as an earlier dinner. She is recognizing the limitations of time and all her activities planned. CPAP Compliance Data - Data Reviewed with Patient Average duration of nightly device use: 4h 1m Compliance rate %: 33.3 Current pressure setting (cmH2O): 11 Humidity settin Heated hose settin Average residual AHI: 0.6 Average large leak: 26 minutes Subjective Missed days of use due to: reports: other (falling asleep without CPAP or just not bothering to use it ) Patient concerns: reports: mask leak noise (rare), other (pressure ?). denies: aerophagia, mask discomfort, air blowing in eyes, condensation in mask/hose, nasal congestion (better with humidity increase), dry mouth, nose, throat (resolved with adjustment of humidity), epistaxis Observed to snore while using device: No Current pressure setting perceived as: comfortable On therapy, patient: reports: sleeping better, awakening more refreshed, being more awake and alert during the day, more rested overall, drowsiness while driving (no drowsiness when adequate sleep) Initial [place] Sleepiness Scale score: 16 Current [place] Sleepiness Scale score: 20 Allergies and Home Medications Known drug allergies: Yes Home medication list reviewed: Yes Allergy and home medication list: Medication Name (generic/name brand) Strength & Dosage Strattera 60mg tab one daily Lisinopril 10mg tab one daily Paroxetine 50mg tab one daily Lamictal XR 300mg tab one daily Miralax 17grams twice daily Aspirin 81mg, 1 every mon/tue/fri cholestyramine once daily with liquid drink Allergy List Zoloft Review of Systems Review of systems same as previous: Yes Physical Exam Blood Pressure: 110/70 Cuff size: long Heart Rate: 99 O2 Saturation: 98 Height: 5 ft 1.75 in Weight: 207 lb 3.2 oz Weight change since last visit: lost 5 pounds Body Mass Index: 38.2 BMI Classification: Obesity Class 2 Impression and Plan 1. Obstructive Sleep Apnea-Hypopnea Syndrome, mild, with better treatment compliance and good apnea control. On CPAP therapy, the patient has better sleep quality and is more rested overall if gets sufficient sleep. Insufficient sleep has been a recurring problem for patient to achieve. Her PCP is also encouraging her to get more sleep as well as her spouse as noted in HPI. The last month her compliance increased from 16.7% to 33.3%. She even achieved more than 7 hours of sleep 3 days. Patient states sleep is less disrupted with resolution of oral dryness. She is advised to continue to clean mask daily and to change cushion regularly to reduce mask leaks which can contribute to dryness. Patient's apnea severity and rationale for treatment to reduce apnea, improve sleep quality and reduce cardiovascular and cerebrovascular events was reviewed. I also reviewed the benefit of consistent device use of CPAP for depression/anxiety, attention deficit. AAS snoring and sleep apnea given as reference for her questions about apnea. 2. Insufficient sleep, with average sleep of 4 hours a night. As noted above, she was able to achieve a minimum of 7 hours of sleep 3 days the past month. I showed her the compliance report and praised her effort. I emphasized the need for her to continue to strive for 7 hours nightly of sleep no matter what. She is to keep a log to show her progress and keep at bedside. She is advised to remember the benefit of sufficient sleep not only for over all health but in doing family activities that she desires and enjoys. I also reminded her how her thought processing will be better with more sleep. She is to think of sleep as necessary and a gift to herself to do what she likes without fatigue. She is again cautioned not to drive if sleepy and agreed with plan. Her new bedtime goal is 10 pm. Thus I again reviewed the need for a bedtime get ready alarm. She agreed a 9:30pm goal is good. She is considering the clock in the kitchen. Her goal wake up time is 5:30am. * * Continue CPAP pressure at 11 cmH2O * Implement methods discussed to obtain more sleep * complete sleep log * Notify me if snoring with mask or feeling that the pressure is too much or too little * Attempt to lose weight * Return for follow up in 1-2 months , or sooner if concerns arise I spent 100% of this 35 minute visit face to face with the patient with greater than 50% of this was spent time counseling the patient and coordination of care.
== END 2019-07-03 09:25 | disposition home or self-care (01) ==
LOC: SC 09:24
PROVIDERS: ATTEND Nurse Practitioner Family
DX: G47.33 Obstructive sleep apnea (adult) (pediatric) (principal); F51.12 Insufficient sleep syndrome; E66.9 Obesity, unspecified; Z68.38 Body mass index [BMI] 38.0-38.9, adult
CPT/HCPCS: 99212; 99214

== ENCOUNTER 2019-08-15 13:25 | Outpatient (CLI) | payer MEDICAID ==
[2019-08-15 14:20] VITALS: BP 118/70
--- NOTE | 2019-08-15 14:20 | SLEEP CARE CONSULTATION ---
Information from patient questionnaire entered by Dayanna Keene. I have reviewed and concur with the information entered by Dayanna Keene. This document represents the service I personally performed and the decisions made by me, Destini Hui, RN, MSN, CERTIFIED MAINTENANCE WELDER. History of Present Illness Previous diagnosis: Mild, Obstructive Sleep Apnea-Hypopnea Syndrome AHI: 10.4 Reason for follow up: other (6 week/sleep diaries) Equipment type: CPAP Equipment obtained from: [employer] Mask style: Full face Mask brand: [employer] Backup mask available: Yes Last cushion change: unknown HPI additional information: She completed a sleep log to tract her hours of sleep and sleep schedule. She felt it helped a little to see how much sleep getting and when. She felt better being more aware of her sleep schedule and how she should sleep more. She realized today she could also tract her sleep on the [employer]ua. She reports feeling motivated after these office visits to achieve her sleep goals of going to bed earlier so can get more sleep. However, it is a lot of work to get all her jobs done before her new bedtime so eventually it gets later and later and she is getting less sleep. As we spoke she recognized that maybe she would get her jobs done more efficiently if had more sleep as we have discussed before. CPAP Compliance Data - Data Reviewed with Patient Average duration of nightly device use: 3.55 Compliance rate %: 30 (maximum use 6.5 hours - 8 days of more than 4 hours) Current pressure setting (cmH2O): 11 Humidity settin Heated hose settin Average residual AHI: 0.8 Average large leak: 39 min 21 sec Subjective Patient concerns: reports: air blowing in eyes (few times ), dry mouth, nose, throat (mild), epistaxis (a week ago ), other. denies: aerophagia, mask discomfort, mask leak noise, condensation in mask/hose, nasal congestion Observed to snore while using device: No Current pressure setting perceived as: comfortable On therapy, patient: reports: sleeping better, awakening more refreshed, being more awake and alert during the day, more rested overall. denies: drowsiness while driving (pulling over to take a nap occasionally when notes drowsiness. ) Initial [place] Sleepiness Scale score: 16 Current [place] Sleepiness Scale score: 17 Allergies and Home Medications Allergy and home medication list: Strattera 60mg tab one daily Lisinopril 10mg tab one daily Paroxetine 50mg tab one daily Lamictal XR 300mg tab one daily Miralax 17grams twice daily Aspirin 81mg, 1 every mon/tue/tue Allergy List Zoloft Physical Exam Blood Pressure: 118/70 Cuff size: long Heart Rate: 98 O2 Saturation: 97 Height: 5 ft 1.75 in Weight: 208 lb 12.8 oz Body Mass Index: 38.5 BMI Classification: Obesity Class 2 Impression and Plan 1. Obstructive Sleep Apnea-Hypopnea Syndrome, mild, with fair treatment compliance and good apnea control. On CPAP therapy, the patient has better sleep quality and is more rested overall when uses it sufficiently. For mask leaks, she is to tighten mask and update cushion. For oral dryness she is to increase humidity and reduce heated hose with rationale discussed. A Web printout of how to complete given with instructions on sample CPAP. I explained how the higher humidity will reduce recurrence of epitaxis. Patient's apnea severity and rationale for treatment to reduce apnea, improve sleep quality and reduce cardiovascular and cerebrovascular events was reviewed. I also reviewed the benefit of consistent device use of CPAP for her depression/anxiety. 2. Insufficient sleep ,average sleep time with CPAP is 3.6 hours. Sleep log reflected from 2.5 hours to 6 hours either at one time or broken between night sleep and naps during the day. Bedtime time varies from 11pm to 2-3am and wake time 6 to 7:40am. The most common time of sleep was 12:30am to 6am in her varied range. She will also nap for 1-3 hours on average in middle of day if insufficient sleep at night but not with her CPAP. Patient appears to have opportunity to sleep more but has home jobs that she reports take time and will make her bed time later. In discussion, she feels a 10pm bedtime would be best for her to get enough sleep as needs to get up at 6am for a child activity. She also feels a regular dinner time would assist completing other jobs sooner. Her goal is a 5pm dinner. She has set up a schedule before and her family likes it. Thus she is again encouraged to follow up with her plan. I counseled her to think of her sleep time as a job to complete for her health and so she can be more alert to complete daily activities. Since she feels the log helped, she will complete another. I reminded her of her success in getting more sleep when she had to make her compliance for her new CPAP. I encouraged her of her ability to achieve now. She can also consider a counselor / student life vice president to assist her to achieve her goals. I again reviewed the importance of not driving if fatigued. * Continue CPAP pressure at 11 cmH2O * adjust mask * Adjust humidity * Implement methods to achieve more sleep * Notify me if snoring with mask or feeling that the pressure is too much or too little * Attempt to lose weight * Return for follow up in 2 months, or sooner if concerns arise I spent 100% of this 37 minute visit face to face with the patient with greater than 50% of this was spent time counseling the patient and coordination of care.
== END 2019-08-15 13:26 | disposition home or self-care (01) ==
LOC: SC 13:25
PROVIDERS: ATTEND Nurse Practitioner Family
DX: G47.33 Obstructive sleep apnea (adult) (pediatric) (principal); F51.12 Insufficient sleep syndrome; E66.9 Obesity, unspecified; Z68.38 Body mass index [BMI] 38.0-38.9, adult
CPT/HCPCS: 99212; 99214

== ENCOUNTER 2019-10-18 11:15 | Outpatient (CLI) | payer MEDICAID ==
[2019-10-18 12:33] VITALS: BP 138/80
--- NOTE | 2019-10-18 12:33 | SLEEP CARE CONSULTATION ---
Information from patient questionnaire entered by Dayanna Keene. I have reviewed and concur with the information entered by Dayanna Keene. This document represents the service I personally performed and the decisions made by me, Destini Hui, RN, MSN, [employer]AN[employer]. History of Present Illness Previous diagnosis: Mild, Obstructive Sleep Apnea-Hypopnea Syndrome AHI: 10.4 Reason for follow up: other (2 month) Equipment type: CPAP Equipment obtained from: [employer] Mask style: Full face Backup mask available: Yes Last cushion change: unknown - HPI additional information: Patient feels she has used CPAP better but still misses days of use when just does not want to use the CPAP. When asked if she wants to continue CPAP she responded yes. She completed the sleep log to be more aware of her sleep. She feels she obtained more sleep with tracking sleep. She feels more rested when she gets more sleep. She finally decided it was too stressful to monitor and decided to focus on getting more sleep instead. The sleep log showed average bedtime was about midnight ( but sometimes 11pm or 2-3 am) and wake time about 6 -7am (but later to 8-10am on later nights.) She occasionally went to bed sooner and then her sleep schedule shifted later when no longer hat to take her daughter to digital field service technician practice. Now usual bedtime is 12:30 and wake time is 7:30am She feels she is not getting the 7 hours of sleep from this schedule but about 6 hours. She is not using the CPAP all the above time. She continues to nap intermittently in middle of day if insufficient sleep from previous night. She has planned a 5pm dinner time to allow her to get home jobs done sooner so bedtime sooner. This did not occur due to holidays. We talked about her sleep time being a job for her health and this did help her to get more sleep sometimes. She did not consider a life cycle assessment analyst or counselor to help her achieve her obj ectives and is not interested as feels she has the tools to be successful with family support but does not use them. She ordered new CPAP supplies recently. CPAP Compliance Data - Data Reviewed with Patient Average duration of nightly device use: 4.1 Compliance rate %: 40 (60 days) Current pressure setting (cmH2O): 11 Humidity settin Heated hose settin Average residual AHI: 0.8 Average large leak: 5 min 52 sec Subjective Missed days of use due to: reports: other (fell asleep without CPAP) Patient concerns: reports: nasal congestion, dry mouth, nose, throat (about a third of the time, sometimes it is when runs out of water ). denies: aerophagia, mask discomfort, air blowing in eyes, mask leak noise, condensation in mask/hose, epistaxis, other Observed to snore while using device: No Current pressure setting perceived as: comfortable On therapy, patient: reports: sleeping better, awakening more refreshed, being more awake and alert during the day, more rested overall Initial [place] Sleepiness Scale score: 16 Current [place] Sleepiness Scale score: 15 Allergies and Home Medications Known drug allergies: Yes Home medication list reviewed: Yes ( no changes from last visit) Review of Systems Review of systems same as previous: Yes Physical Exam Blood Pressure: 138/80 Cuff size: long Heart Rate: 92 O2 Saturation: 97 Height: 5 ft 1.75 in Weight: 212 lb 12.8 oz Weight change since last visit: gained 4 pounds Body Mass Index: 39.2 BMI Classification: Obesity Class 2 Impression and Plan 1. Obstructive Sleep Apnea-Hypopnea Syndrome, mild , with better but fair treat ment compliance and good apnea control. On CPAP therapy, the patient has better sleep quality and is more rested overall. She has improved compliance by 10%. To reduce oral dryness, I will have her reduce the heated hose to 2 and keep the humidity at 3. It seems her oral dryness is related to running out of water and the hose heat can sometimes cause increase in water loss. Printed instructions given how to change settings and written instructions of goals and why to adjust settings more written for reference during discussion. In regard to her use of CPAP, compliance was improved. It appears that tracking her sleep time increases her awareness though patient voiced frustration after some time. I again counseled her on the benefit of sufficient sleep especially with her CPAP. I again reviewed how she is able to use CPAP more as noted when she had to make the 70% for her new CPAP. I counseled her of the importance of a regular sleep schedule, not only for better sleep efficiency but for alertness during the day with rationale explained. After much discussion, it was decided that tracking her sleep improved her awareness to get more sleep and she agreed to resume. 2 months sleep logs were given. I reviewed how most people require 7-9 hour of sleep for optimal mental and physical function. She is currently averaging 4 hours on CPAP with a maximum of 10-11 hours during holidays. I asked her what her goals were. She would like to obtain 8 hours. We discussed her preferred sleep schedule. After some discussion of what her usual range is and how she would like to change it was decided that 11pm bedtime and -7am wake time would be reasonable goals. I also asked her to increase her use of CPAP by 20%, doubling her last achievement. I also discussed how depression can sometimes make it hard to achieve goals and to use her support system as needed since she does not want outside assistance. In addition, better sleep will benefit her depression. Patient's apnea severity and rationale for treatment to reduce apnea, improve sleep quality and reduce cardiovascular and cerebrovascular events was reviewed. I also reviewed the benefit of consistent device use of CPAP for hypertension, depression/anxiety. * Continue CPAP pressure at 11 cmH2O * Implement methods to get more sleep. * Adjust humidity / heated hose * Notify me if snoring with mask or feeling that the pressure is too much or too little * Attempt to lose weight * Call this office if any problems using CPAP * Return for follow up in 2 months , or sooner if concerns arise Time Spent with Patient (minutes): 35 I spent 100% of this visit face to face with the patient with greater than 50% of this was spent time counseling the patient and coordination of care.
== END 2019-10-18 11:16 | disposition home or self-care (01) ==
LOC: SC 11:15
PROVIDERS: ATTEND Nurse Practitioner Family
DX: G47.33 Obstructive sleep apnea (adult) (pediatric) (principal); E66.9 Obesity, unspecified; Z68.39 Body mass index [BMI] 39.0-39.9, adult
CPT/HCPCS: 99212; 99214

== ENCOUNTER 2019-11-22 20:27 | Emergency (ER) | payer MEDICAID ==
--- NOTE | 2019-11-22 21:58 | XRAY Report ---
Reason: Left hip pain, feeling of it "popping" Procedure Date: 11/22/2019 Accession Number: [id number] / [id number] Procedure: XR - Hip w/Pelvis 2-3V LT CPT Code: Final Report FULL RESULT: EXAM: LEFT HIP RADIOGRAPHY EXAM DATE: 11/22/2019 09:31 PM. CLINICAL HISTORY: Left hip pain, feeling of it popping. COMPARISON: None. TECHNIQUE: 2 views. FINDINGS: Bones: No acute fractures. Joints: No dislocation. The hip joint space is preserved. Soft Tissues: Unremarkable aside from an electronic device laterally. Multiple pelvic calcifications likely reflect phleboliths. IUD projects over the pelvis. IMPRESSION: No acute fracture or subluxation. RADIA
--- NOTE | 2019-11-22 22:19 | ED Physician Documentation ---
History of Present Illness - Stated complaint Stated Complaint: LT HIP PX - Chief complaint Chief Complaint: Ext Problem - Additonal information Additional information: This is a 54-year-old female with a history of obstructive sleep apnea, T2DM, autism spectrum disorder, high cholesterol, who presents with left posterior leg pain. Patient states that for last 8 days or so she has had some pain on the back of her left leg which seems to radiate down from her hip. She also has had a little bit of tingling over her toes in the left. She states this began after she was sleeping on hard ground and she had a little bit of low back pain at that time. She does not thinks is gotten any worse the last 8 days. She saw her primary care provider today and they ordered an x-ray of her hip, patient Was concerned that this will take quite a while to get and she wanted work-up done faster so she presented to the emergency department today. No fever, no weakness, no changes To urination or defecation. She denies any trauma, no falls, no impact to the hip. She is able to walk normally. Review of Systems Constitutional: denies: Fever GI: denies: Abdominal Pain : denies: Hesitancy Musculoskeletal: reports: Extremity pain Neurologic: reports: Numbness. denies: Generalized weakness Immunocompromised: denies: Immunocompromised PD PAST MEDICAL HISTORY - Past Medical History Past Medical History: Yes Cardiovascular: Hypertension, High cholesterol Respiratory: Sleep apnea, CPAP use Neuro: Seizure disorder Endocrine/Autoimmune: Type 2 diabetes GI: None, Chronic constipation, Hemorrhoids DESIGN CONSULTANT: None : None HEENT: None Psych: Depression, Anxiety, ADD/ADHD Musculoskeletal: Osteoarthritis Derm: Herpes zoster, Rosacea Other Past Medical History: patient reports abnormal EEG - Past Surgical History Past Surgical History: Yes General: Appendectomy, Colonoscopy Ortho: Carpal Tunnel surgery - Present Medications Home Medications: Ambulatory Orders Medication Instructions Recorded Confirmed Atomoxetine HCl [Strattera] 60 mg PO DAILY 04/06/13 04/13/19 PARoxetine [Paxil] 50 mg PO DAILY 04/06/13 04/13/19 Polyethylene Glycol 3350 [Miralax] 17 gm PO BID 04/06/13 04/13/19 lamoTRIgine [Lamictal Xr] 300 mg PO DAILY 04/06/13 04/13/19 lisinopriL [Lisinopril] 10 mg PO DAILY 02/21/15 04/13/19 Multivitamin [Multivitamins] 1 each PO DAILY 10/30/15 04/13/19 Aspirin Chewable [St Alli 81 mg PO DAILY 04/13/19 04/13/19 Aspirin] Atorvastatin [Lipitor] 40 mg ORAL QPM 11/22/19 11/22/19 Cholestyramine [Questran] 4 gm PO DAILY 11/22/19 11/22/19 - Allergies Allergies/Adverse Reactions: Allergies Allergy/AdvReac Type Severity Reaction Status Date / Time sertraline [From Zoloft] AdvReac Respiratory Verified 11/22/19 20:33 - Social History Does the pt smoke?: No Smoking Status: Never smoker Does the pt drink ETOH?: No Does the pt have substance abuse?: No - Immunizations Immunizations are current?: Yes - POLST Patient has POLST: No PD ED PE NORMAL - Vitals Vital signs reviewed: Yes - General General: Alert and oriented X 3, No acute distress - HEENT HEENT: PERRL - Neck Neck: Supple, no meningeal sign - Cardiac Cardiac: RRR - Respiratory Respiratory: No respiratory distress - Abdomen Abdomen: Soft, Non tender, Non distended - Derm Derm: Warm and dry - Extremities Extremities: Other (Extremities are symmetric in appearance, there is no rash, no bruising. There is no specific tenderness over the trochanter, hip, pelvis, femur. There is no edema in the lower leg, no erythema. Patient has excellent range of motion with hip flexion, knee extension and flexion, ankle flexion and dorsiflexion. She has brisk capillary refill on the extremity. Sensation appears intact to light touch over the entire foot, other than and the tips of the first and second toes on the left foot patient states it feels slightly less than on the right foot, but she still is able to localize touch. Ankle dorsiflexion plantarflexion are 5 out of 5 bilaterally, as are hip flexion and extension.Gait is normal, narrow based.) - Neuro Neuro: Alert and oriented X 3 Results - Vitals Vitals: Vital Signs - 24 hr 11/22/19 11/22/19 20:32 22:23 Temperature 37 C 36.4 C L Heart Rate 87 74 Respiratory 18 16 Rate Blood Pressure 128/90 H 125/71 O2 Saturation 100 100 Oxygen O2 Source Room air - Rads (name of study) XR hip Radiology: Other (No acute osseous abnormality) PD MEDICAL DECISION MAKING - ED course Complexity details: considered differential (Strain, fracture, sprain, sciatica, radiculopathy) ED course: Patient is very well-appearing on examination, she is neurovascularly intact, other than she has some very slight sensation changes on her left foot. She is concerned about her left hip given has had a sensation of popping, though her range of motion is excellent and and she is able to bear weight on it. I did perform an x-ray which did not show any acute osseous abnormality. And since patient is ambulatory without any bony tenderness the risk of occult fracture is very low. No erythema or edema no signs of DVT. Given the location of her pain- it radiates down her posterior leg and she has some sensation changes in her left foot, actually concerned this is sciatica. She is following up closely with her primary care provider and I do not appreciate any strength deficits at this time, do not feel that she needs emergent imaging, but I discussed with the patient that she needs close follow-up and if she develops any concerning symptoms such as weakness in the leg, bowel or bladder changes, or if her sensation changes are progressing up the leg, she is to be reevaluated in the emergency department. I discussed with her that if she is on having improvement she may need further imaging. I discussed supportive care with ibuprofen, Ty lenol, rest, and patient agrees this plan was discharged home in good condition. Departure - Departure Disposition: 01 Home, Self Care Clinical Impression: Leg pain Qualifiers: Laterality: left Qualified Code(s): M79.605 - Pain in left leg Condition: Good Follow-Up: Leonela Hameed MD [Primary Care Provider] - Within 1 week Comments: You were seen today for pain in the back of your leg, your x-ray of your hip did not show any obvious abnormalities. I am actually concerned this may be sciatica or some impingement on the nerves from your back that radiates down your leg. This may be what is causing some of your tingling and sensation changes in your left foot. I would like you to be reexamined by her primary care provider within the next week, if you are having persistent symptoms that are not improving, you may need further testing such as MRI of your back. If you having worsening symptoms such as weakness in your leg, difficulty using the bathroom or any other concerning symptoms return to the emergency department. Please take ibuprofen 600 mg every 6 hours for discomfort, you may also take Tylenol 650 mg every 6 hours.
[2019-11-22 22:25] VITALS: BP 125/71
== END 2019-11-22 22:39 | disposition home or self-care (01) ==
LOC: ED 20:27
DX: M79.605 Pain in left leg (principal); E11.9 Type 2 diabetes mellitus without complications; I10 Essential (primary) hypertension
CPT/HCPCS: 99283; 99284

== ENCOUNTER 2019-11-24 11:07 | Outpatient (CLI) | payer MEDICAID ==
--- NOTE | 2019-11-25 01:35 | Ultrasound Report ---
Reason: RUQ PAIN Procedure Date: 11/24/2019 Accession Number: [id number] / [id number] Procedure: US - Abdomen Complete CPT Code: Final Report FULL RESULT: EXAM: ABDOMEN ULTRASOUND EXAM DATE: 11/24/2019 12:26 PM. CLINICAL HISTORY: RUQ PAIN. COMPARISON: ABDOMEN LIMITED 05/19/2018 5:50 AM. TECHNIQUE: Real-time scanning was performed with static images obtained. FINDINGS: Liver: Mildly echogenic liver, suggestive of mild fatty infiltration. The liver measures 17.9 cm. Main portal vein flow: Hepatopetal. Gallbladder: Normal. No stones, wall thickening, or sonographic Davidson's sign. Biliary System: Common bile duct measures 3 mm. No intrahepatic or extrahepatic ductal dilatation. Pancreas: Visualized portion is unremarkable. Kidneys: Right: 10.0 cm longitudinally. Normal. No contour-deforming mass, stones, or hydronephrosis. Left: 11.0 cm longitudinally. Normal. No contour-deforming mass, stones, or hydronephrosis. Spleen: 10.0 cm. Normal in size and echotexture. Aorta and Inferior Vena Cava: Unremarkable. Other: None. IMPRESSION: Mildly echogenic liver, suggestive of mild fatty infiltration. RADIA
== END 2019-11-24 11:08 | disposition home or self-care (01) ==
LOC: DI 11:07
PROVIDERS: ATTEND Internal Medicine
DX: R10.11 Right upper quadrant pain (principal)
CPT/HCPCS: 76700

== ENCOUNTER 2019-12-21 09:26 | Outpatient (CLI) | payer MEDICAID ==
[2019-12-21 17:37] LABS: HB2 TOTAL 13.1 g/dL; HEMOGLOBIN A1C 0.54 g/dL; HEMOGLOBIN A1C % 5.9 % (4.6-6.2)
== END 2019-12-21 09:27 | disposition home or self-care (01) ==
LOC: LAB 09:26
PROVIDERS: ATTEND Internal Medicine
DX: E11.9 Type 2 diabetes mellitus without complications (principal)
CPT/HCPCS: 36415; 82951; 83036

== ENCOUNTER 2020-01-15 13:00 | Outpatient (CLI) | payer MEDICAID ==
--- NOTE | 2020-01-15 17:51 | MRI Report ---
Reason: LOW BACK PAIN Procedure Date: 01/15/2020 Accession Number: [id number] / [id number] Procedure: MRI - Lumbar Spine W/O CPT Code: Final Report FULL RESULT: EXAM: MRI LUMBAR SPINE WITHOUT CONTRAST EXAM DATE: 01/15/2020 01:44 PM. CLINICAL HISTORY: 54-year-old female. LOW BACK PAIN. COMPARISON: None. TECHNIQUE: Multiplanar, multisequence T1-weighted and fluid-sensitive sequences of the lumbar spine from T12 to S1 without contrast. Other: None. FINDINGS: Spinal Canal: The conus terminates at L2. The conus medullaris and cauda equina are unremarkable. Alignment: No scoliosis or spondylolisthesis. Bone Marrow: Five dwe-cyl-xyjsmjo lumbar vertebral bodies are assumed. No gross fractures or bone lesions. Modic type I degenerative endplate changes with endplate edema at T12-L1, L1-L2, and L5-S1 levels. Disk Levels/Facets: T12-L1: Unremarkable. L1-L2: Diffuse disc bulge. Mild to moderate central canal narrowing. No foraminal narrowing. L2-L3: Unremarkable. L3-L4: Mild diffuse disk bulge. No significant central canal narrowing. Mild bilateral foraminal narrowing. L4-L5: Mild diffuse disk bulge. No significant central canal narrowing. Mild bilateral foraminal narrowing. L5-S1: Moderate disk height loss and desiccation. Mild to moderate diffuse disk bulge. Mild bilateral facet arthropathy. No significant central canal narrowing. Moderate left foraminal narrowing. Mild to moderate right foraminal narrowing. Musculature: Normal. No edema or fatty atrophy. Other: The partially visualized retroperitoneum is unremarkable. IMPRESSION: 1. Mild to moderate multilevel degenerative spondylosis, as detailed above and summarized below. No evidence of acute fracture or traumatic subluxation. No cord signal abnormality. 2. Modic type I degenerative endplate changes with endplate edema at T12-L1, L1-L2, and L5-S1 levels. Modic type I changes may represent a source of pain. 3. L1-L2: Mild to moderate central canal narrowing. No foraminal narrowing. 4. L3-L4: No significant central canal narrowing. Mild bilateral foraminal narrowing. 5. L4-L5: No significant central canal narrowing. Mild bilateral foraminal narrowing. 6. L5-S1: No significant central canal narrowing. Moderate left foraminal narrowing. Mild to moderate right foraminal narrowing. Comment: The following findings are so common in adults without low back pain that while we report their presence, they must be interpreted with caution and in the context of the clinical situation. (Reference Rommel et al, Spine 2001) Prevalence of findings in patients without low back pain: Disk degeneration (any evidence): 92% Disk desiccation/T2 signal loss: 83% Disk height loss: 56% Disk bulge: 64% Disk protrusion: 32% Annular tear/high intensity zone: 38% RADIA
== END 2020-01-15 13:01 | disposition home or self-care (01) ==
LOC: DI 13:00
PROVIDERS: ATTEND Internal Medicine
DX: M51.86 Other intervertebral disc disorders, lumbar region (principal); M51.37 Other intervertebral disc degeneration, lumbosacral region; M47.816 Spondylosis without myelopathy or radiculopathy, lumbar region; M47.817 Spondylosis without myelopathy or radiculopathy, lumbosacral region; M48.061 Spinal stenosis, lumbar region without neurogenic claudication; M48.07 Spinal stenosis, lumbosacral region
CPT/HCPCS: 72148

== ENCOUNTER 2020-02-20 09:45 | Outpatient (CLI) | payer MEDICAID ==
--- NOTE | 2020-02-20 09:27 | SLEEP CARE CONSULTATION ---
Information from patient questionnaire entered by Dayanna Keene. I have reviewed and concur with the information entered by Dayanna Keene. This document represents the service I personally performed and the decisions made by me, Destini Hui, RN, MSN, DIRECTOR OF OPERATIONS FOR THERAPY. History of Present Illness Service Date and Time: 02/20/2020 0900 Previous diagnosis: Mild, Obstructive Sleep Apnea-Hypopnea Syndrome AHI: 10.4 (in 2012) Reason for follow up: other (4 month) Equipment type: CPAP Equipment obtained from: [employer] (not getting supplies regularly as sometimes a reminder call or otherwise has to call.) Mask style: Full face Backup mask available: Yes (old mask ) Last cushion change: 3 months or so Prior sleep studies: Yes Year and Where: 2013 - [facility] Type of Sleep Study: Polysomnography CPAP Compliance Data - Data Reviewed with Patient Average duration of nightly device use: 5.45 Compliance rate %: 76.7 (last 30)(62.2 for 90 days) Current pressure setting (cmH2O): 11 Humidity settin Heated hose settin Average residual AHI: 0.5 Average large leak: 14 min 40 sec Subjective Missed days of use due to: reports: other (poor sleep hygiene and going to bed late) Patient concerns: reports: mask leak noise (intermittently ), dry mouth, nose, throat (dry mouth most mornings - moderate ). denies: aerophagia, mask discomfort, air blowing in eyes, condensation in mask/hose, nasal congestion, epistaxis Observed to snore while using device: No Current pressure setting perceived as: comfortable On therapy, patient: reports: sleeping better (but still reports fatigue that she feels is due to deficient ). denies: drowsiness while driving Initial [place] Sleepiness Scale score: 16 (in 2010) Physical Exam Height: 5 ft 1.75 in Weight: 213 lb (home weight) Body Mass Index: 39.2 BMI Classification: Obese Impression and Plan 1. Obstructive Sleep Apnea-Hypopnea Syndrome, mild, with good treatment compliance and excellent apnea control. On CPAP therapy, the patient has better sleep quality. However she is still fatigued that she recognizes is from insufficient sleep averaging 5.75 hours a night. I praised her progress in meeting compliance. I discussed her new goal is to strive for 7 hours of sleep now. This is the minimum average sleep requirement. She agreed with plan. Mask leaks can be reduced by washing mask daily and changing mask cushions more frequently to improve mask seal and comfort. She was advised to use a calendar system for reminding her to order her supplies. Her oral dryness can be reduced by adjusting humidity setting higher or heated hose lower or by adjusting both settings. Oral dryness can also be reduced by reducing mask leaks. Patient advised that chronic oral dryness can affect dental health and advised to follow up with dentist. In addition, there are oral dryness products that can be used to reduce dryness. Patient to discuss best option with dentist if decides to use. Patient's apnea severity and rationale for treatment to reduce apnea, improve sleep quality and reduce cardiovascular and cerebrovascular events was reviewed. Patient also advised of health risks of obesity and to lose weight by continuing her exercise walking with spouse and diet modification. * Continue CPAP pressure at 11 cmH2O * Implement methods to reduce oral dryness / mask leaks * Notify me if snoring with mask or feeling that the pressure is too much or too little * Attempt to lose weight * Strive for more sleep nightly with goal of 7 hours. * Call this office if any problems using CPAP * Return for follow up in 3 months , or sooner if concerns arise
== END 2020-02-20 09:46 | disposition home or self-care (01) ==
LOC: SC 09:45
PROVIDERS: ATTEND Nurse Practitioner Family
DX: G47.33 Obstructive sleep apnea (adult) (pediatric) (principal); E66.9 Obesity, unspecified; Z68.39 Body mass index [BMI] 39.0-39.9, adult

== ENCOUNTER 2020-03-22 21:59 | Emergency (ER) | payer MEDICAID ==
--- NOTE | 2020-03-22 22:21 | ED Physician Documentation ---
History of Present Illness - Stated complaint Stated Complaint: CP - Chief complaint Chief Complaint: Cardiac - History obtained from History obtained from: Patient (Patient is a 54-year-old female presents with chest discomfort that lasted for approximately 5 to 10 seconds prior to arrival reports is resolved now denies any history of NM or stroke she does report a history of GERD she reports that she had a large meal tonightAnd then developed discomfort), Other (She denies any history of NM or stroke or pulmonary embolism or DVT.Reports her symptoms are better when she is upright.Denies lower extremity swellingDenies any hemoptysis.Denies any recent surgeries.) Review of Systems Constitutional: reports: Reviewed and negative Eyes: reports: Reviewed and negative Ears: reports: Reviewed and negative Nose: reports: Reviewed and negative Throat: reports: Reviewed and negative Cardiac: reports: Chest pain / pressure Respiratory: reports: Reviewed and negative GI: reports: Other (GERD) : reports: Reviewed and negative Skin: reports: Reviewed and negative Musculoskeletal: reports: Reviewed and negative Neurologic: reports: Reviewed and negative Psychiatric: reports: Reviewed and negative Endocrine: reports: Reviewed and negative Immunocompromised: reports: Reviewed and negative PD PAST MEDICAL HISTORY - Past Medical History Cardiovascular: Hypertension, High cholesterol Respiratory: Sleep apnea, CPAP use Neuro: Seizure disorder Endocrine/Autoimmune: Type 2 diabetes GI: None, Chronic constipation, Hemorrhoids MEMBER OF TECHNICAL STAFF: None : None HEENT: None Psych: Depression, Anxiety, ADD/ADHD Musculoskeletal: Osteoarthritis Derm: Herpes zoster, Rosacea - Past Surgical History Past Surgical History: Yes General: Appendectomy, Colonoscopy Ortho: Carpal Tunnel surgery - Present Medications Home Medications: Ambulatory Orders Medication Instructions Recorded Confirmed Atomoxetine HCl [Strattera] 60 mg PO DAILY 04/06/13 04/13/19 PARoxetine [Paxil] 50 mg PO DAILY 04/06/13 04/13/19 Polyethylene Glycol 3350 [Miralax] 17 gm PO BID 04/06/13 04/13/19 lamoTRIgine [Lamictal Xr] 300 mg PO DAILY 04/06/13 04/13/19 lisinopriL [Lisinopril] 10 mg PO DAILY 02/21/15 04/13/19 Multivitamin [Multivitamins] 1 each PO DAILY 10/30/15 04/13/19 Aspirin Chewable [St Alli 81 mg PO DAILY 04/13/19 04/13/19 Aspirin] Atorvastatin [Lipitor] 40 mg ORAL QPM 11/22/19 11/22/19 Cholestyramine [Questran] 4 gm PO DAILY 11/22/19 11/22/19 - Allergies Allergies/Adverse Reactions: Allergies Allergy/AdvReac Type Severity Reaction Status Date / Time sertraline [From Zoloft] AdvReac Respiratory Verified 03/22/20 22:03 - Social History Does the pt smoke?: No Smoking Status: Never smoker Does the pt drink ETOH?: No Does the pt have substance abuse?: No - Immunizations Immunizations are current?: Yes - POLST Patient has POLST: No PD ED PE NORMAL - Vitals Vital signs reviewed: Yes - General General: Alert and oriented X 3, No acute distress, Well developed/nourished - HEENT HEENT: PERRL - Neck Neck: Supple, no meningeal sign, No JVD - Cardiac Cardiac: RRR, No murmur, Strong equal pulses - Respiratory Respiratory: No respiratory distress, Clear bilaterally - Abdomen Abdomen: Normal bowel sounds, Soft, Non tender, Non distended, No organomegaly - Back Back: No CVA TTP, No spinal TTP - Derm Derm: Normal color, Warm and dry, No rash - Extremities Extremities: No deformity, No tenderness to palpate, Normal ROM s pain, No edema, No calf tenderness / cord - Neuro Neuro: Alert and oriented X 3, rock mason 2-12 intact, No motor deficit, No sensory deficit, Normal speech - Psych Psych: Normal mood, Normal affect Results - Vitals Vitals: Vital Signs - 24 hr 03/22/20 22:03 Temperature 36.6 C Heart Rate 100 Respiratory 14 Rate Blood Pressure 143/79 H O2 Saturation 99 Oxygen O2 Source Room air - EKG (time done) 22:12 Rate: Other (no stemi) - Labs Labs: Laboratory Tests 03/22/20 03/22/20 03/22/20 22:50 22:50 22:50 WBC 6.9 RBC 3.96 L Hgb 11.6 L Hct 36.8 L MCV 92.9 MCH 29.3 MCHC 31.5 L RDW 12.4 Plt Count 249 MPV 9.2 Neut # (Auto) 4.9 Lymph # (Auto) 1.3 L [place] # (Auto) 0.5 Eos # (Auto) 0.2 Baso # (Auto) 0.0 Absolute Nucleated RBC 0.00 Nucleated RBC % 0.0 PT 11.9 INR 1.0 APTT 26.7 Sodium 136 Potassium 4.0 Chloride 104 Carbon Dioxide 22 Anion Gap 10.0 BUN 23 H Creatinine 0.8 Estimated GFR (MDRD) 75 L Glucose 117 H Calcium 8.6 Total Bilirubin 0.4 AST 28 ALT 32 Alkaline Phosphatase 59 Total Creatine Kinase 135 Troponin I High Sens B-Natriuretic Peptide Total Protein 6.3 L Albumin 3.7 Globulin 2.6 Albumin/Globulin Ratio 1.4 Lipase 33 03/22/20 03/22/20 22:50 22:50 WBC RBC Hgb Hct MCV MCH MCHC RDW Plt Count MPV Neut # (Auto) Lymph # (Auto) [place] # (Auto) Eos # (Auto) Baso # (Auto) Absolute Nucleated RBC Nucleated RBC % PT INR APTT Sodium Potassium Chloride Carbon Dioxide Anion Gap BUN Creatinine Estimated GFR (MDRD) Glucose Calcium Total Bilirubin AST ALT Alkaline Phosphatase Total Creatine Kinase Troponin I High Sens < 2.3 L B-Natriuretic Peptide 8 Total Protein Albumin Globulin Albumin/Globulin Ratio Lipase PD MEDICAL DECISION MAKING - ED course Complexity details: reviewed results, re-evaluated patient, considered differential (HEART score 2, Unable to PERC out becuase patient is 54. Patient with atypical symptoms EKG shows no STEMI chest x-ray is unremarkable, negative troponin.), d/w patient, other Departure - Departure Disposition: Home, Self Care Clinical Impression: Chest pain Qualifiers: Chest pain type: unspecified Qualified Code(s): R07.9 - Chest pain, unspecified Condition: Stable Instructions: ED Chest Pain Atypical Unkn Cause Follow-Up: Leonela Hameed MD [Primary Care Provider] - 03/24/20 Comments: Follow-up with your primary care provider on Tuesday.
[2020-03-22 22:57] LABS: BASOPHILS % (AUTO) 0.6 %; EOSINOPHILS # (AUTO) 0.2 10^3/uL (0.0-0.7); EOSINOPHILS % (AUTO) 3.5 %; HGB - HEMOGLOBIN 11.6 g/dL (12.0-16.0); LYMPHOCYTES # (AUTO) 1.3 10^3/uL (1.5-3.5); LYMPHOCYTES % (AUTO) 18.1 %; MEAN CORPUSCULAR HEMOGLOBIN 29.3 pg (27.0-31.0); MEAN CORPUSCULAR HGB CONC 31.5 g/dL (32.0-36.0); MEAN CORPUSCULAR VOLUME 92.9 fL (81.0-99.0); MEAN PLATELET VOLUME 9.2 fL (7.9-10.8); MONOCYTES # (AUTO) 0.5 10^3/uL (0.0-1.0); MONOCYTES % (AUTO) 6.6 %; NEUTROPHILS # (AUTO) 4.9 10^3/uL (1.5-6.6); NEUTROPHILS % (AUTO) 71.1 %; PLT - PLATELET COUNT 249 10^3/uL (130-450); RED BLOOD COUNT 3.96 10^6/uL (4.20-5.40); RED CELL DISTRIBUTION WIDTH 12.4 % (12.0-15.0); WHITE BLOOD COUNT 6.9 x10^3/uL (4.8-10.8)
[2020-03-22 23:03] LABS: PT - PROTHROMBIN TIME 11.9 secs (9.9-12.6)
[2020-03-22 23:21] LABS: ALBUMIN 3.7 g/dL (3.2-5.5); ALBUMIN/GLOBULIN RATIO 1.4 (1.0-2.2); BILIRUBIN,TOTAL 0.4 mg/dL (0.2-1.0); CALCIUM 8.6 mg/dL (8.5-10.3); CREATININE 0.8 mg/dL (0.4-1.0); PARTIAL THROMBOPLASTIN TIME 26.7 secs (24.9-33.3); TOTAL PROTEIN 6.3 g/dL (6.7-8.2)
[2020-03-23 00:06] VITALS: BP 130/78
--- NOTE | 2020-03-23 09:23 | XRAY Report ---
PROCEDURE: Chest 1 View X-Ray INDICATIONS: Chest pain. TECHNIQUE: One view of the chest was acquired. COMPARISON: Chest x-ray, 10/21/2014. FINDINGS: Surgical changes and devices: None. Lungs and pleura: No pleural effusions or pneumothorax. Lungs are clear. Mediastinum: Mediastinal contours appear normal. Heart size is normal. Bones and chest wall: No suspicious bony lesions. Overlying soft tissues appear unremarkable. IMPRESSION: No acute cardiopulmonary disease. Reviewed by: Anabela Massey MD on 03/23/2020 9:22 AM PDT Approved by: Anabela Massey MD on 03/23/2020 9:22 AM PDT Station ID: [id number]
== END 2020-03-23 00:16 | disposition home or self-care (01) ==
LOC: ED 21:59
DX: R07.89 Other chest pain (principal); K21.9 Gastro-esophageal reflux disease without esophagitis; I10 Essential (primary) hypertension; E11.9 Type 2 diabetes mellitus without complications; Z79.82 Long term (current) use of aspirin
CPT/HCPCS: 36415; 71045; 80053; 82550; 83690; 83880; 84484; 85025; 85610; 85730; 93005; 99284

== ENCOUNTER 2020-05-06 14:52 | Outpatient (CLI) | payer MEDICAID ==
[2020-05-06 15:36] LABS: HB2 TOTAL 13.3 g/dL; HEMOGLOBIN A1C 0.56 g/dL
== END 2020-05-06 14:53 | disposition home or self-care (01) ==
LOC: LAB 14:52
PROVIDERS: ATTEND Obstetrics & Gynecology
DX: E11.9 Type 2 diabetes mellitus without complications (principal)
CPT/HCPCS: 83036

== ENCOUNTER 2020-05-22 15:18 | Outpatient (CLI) | payer MEDICAID ==
--- NOTE | 2020-05-23 08:09 | Mammography Report ---
BILATERAL DIGITAL SCREENING MAMMOGRAM 3D/2D: 05/22/2020 CLINICAL: Routine screening. Comparison is made to exams dated: 11/22/2018 mammogram, 11/21/2017 mammogram, 07/15/2016 mammogram, a nd 01/13/2016 mammogram - [facility]. There are scattered fibroglandular elements i n both breasts. No significant masses, calcifications, or other findings are seen in either breast. There has been no significant interval change. IMPRESSION: NEGATIVE There is no mammographic evidence of malignancy. A 1 year screening mammogram is recommended. This exam was interpreted at Station ID: [id number]. NOTE: For mammograms, a report in lay terms will be sent to the patient. Approximately 15% of breast malignancies will not be visualized mammographically. In the management of a palpable breast mass, a negative mammogram must not discourage biopsy of a clinically suspicious lesion. Electronically Signed By: Lucrecia rodrigues/delores:05/22/2020 16:17:14 ACR BI-RADS Category 1: Negative [id number] PARENCHYMAL PATTERN: (A) - The breast(s) demonstrate(s) scattered fibroglandular densities. BI-RADS CATEGORY: (1) - 1 RECOMMENDATION: (ANNUAL) - Recommend routine annual screening mammography. [id number] 1 year screening LATERALITY: (B)
== END 2020-05-22 15:19 | disposition home or self-care (01) ==
LOC: DI.N 15:18
PROVIDERS: ATTEND Internal Medicine
DX: Z12.31 Encounter for screening mammogram for malignant neoplasm of breast (principal)
CPT/HCPCS: 77063; 77067

== ENCOUNTER 2020-06-30 14:54 | Outpatient (CLI) | payer MEDICAID ==
--- NOTE | 2020-06-30 15:48 | SLEEP CARE CONSULTATION ---
Information from patient questionnaire entered by Herlinda Smiley. I have reviewed and concur with the information entered by Herlinda Smiley. This document represents the service I personally performed and the decisions made by me, Destini Hui, RN, MSN, MULTIPLE EFFECT EVAPORATOR OPERATOR. History of Present Illness Service Date and Time: 06/30/2020 1454 Previous diagnosis: Mild, Obstructive Sleep Apnea-Hypopnea Syndrome AHI: 10.4 (in 2013) Reason for follow up: three month Equipment type: CPAP Equipment obtained from: [employer] (getting supplies) Mask style: Full face Backup mask available: Yes (old mask) Last cushion change: 2 + months Prior sleep studies: Yes Year and Where: 2013 - [facility] Type of Sleep Study: Polysomnography HPI additional information: Patient has seen a counselor and feels this has helped her to improve use. In addition, her spouse now uses CPAP which has also helped her use her CPAP. She did not increase her mask washing or incorporate the calendar system to remind her order. However, she is getting better contact from [employer] for reminders when she can order. Sleep Study - Results Prior sleep studies: Yes Year and Where: 2013 - [facility] CPAP Compliance Data - Data Reviewed with Patient Average duration of nightly device use: 6 h 40 min Compliance rate %: 80 Current pressure setting (cmH2O): 11 Humidity settin Heated hose settin Average residual AHI: 0.8 Average large leak: 3 min 39 sec Subjective Patient concerns: reports: mask discomfort (mask irritation of papules when mask sits on face), air blowing in eyes (a few times a week), mask leak noise (a few times a week), condensation in mask/hose (about once a week ), dry mouth, nose, throat (4 times a week ) Observed to snore while using device: No Current pressure setting perceived as: comfortable On therapy, patient: reports: sleeping better, awakening more refreshed, being more awake and alert during the day, more rested overall, drowsiness while driving (still some noted even with better sleep - drives less ) Initial [place] Sleepiness Scale score: 16 (in 2010) Allergies and Home Medications Known drug allergies: Yes Home medication list reviewed: No (addedAtorvastatin 40mg and metformin 500mg HS) Review of Systems Review of systems same as previous: Yes Physical Exam Blood Pressure: 110/60 Cuff size: long Heart Rate: 91 O2 Saturation: 99 Height: 5 ft 2 in Weight: 209 lb 12.8 oz Weight change since last visit: lost 3 pounds Body Mass Index: 38.3 BMI Classification: Obese Impression and Plan 1. Obstructive Sleep Apnea-Hypopnea Syndrome, mild, with good treatment compliance and good apnea control. On CPAP therapy, the patient has better sleep quality and is more rested overall. Mask leaks are increasing lately so advised to change soon. In addition, I discussed how she could incorporate mask washing daily after brushing teeth or using a CPAP wipe. Oral dryness can be reduced by adjusting humidity setting higher or heated hose lower or by adjusting both settings. Verbal instructions given on how to change humidity and heated hose settings with rationale explaining why to change. Oral dryness can also be reduced by reducing mask leaks. Patient advised that chronic oral dryness can affect dental health and advised to follow up with dentist. In addition, there are oral dryness products that can be used to reduce dryness such as Biotene products, Dry mouth rinse and Xylomelts. Patient to discuss best option with dentist. To reduce skin irritation, she is to wash mask daily or use CPAP wipes which can be found online. There are also cloth barriers that can be used and found online. Patient praised for her improved CPAP use and weight loss. She is to continue to lose weight for overall health. She was also praised for her improved use of CPAP and additional hour of sleep. However, due to her continued sleepiness symptoms, she is advised to strive for more sleep with goal of 7-8 hours. If this is achieved and she is still sleepy she is advised to follow up with her PCP for further evaluation. Patient's apnea severity and rationale for treatment to reduce apnea, improve sleep quality and reduce cardiovascular and cerebrovascular events was reviewed. I also reviewed the benefit of consistent device use of CPAP for hypertension, diabetes, depression/anxiety. * Continue auto CPAP pressure at 11 cmH2O * Implement methods to reduce oral dryness and skin irritation * Strive for more sleep * Notify me if snoring with mask or feeling that the pressure is too much or too little * Attempt to lose weight * Call this office if any problems using CPAP * Return for follow up in 6 months , or sooner if concerns arise Visit Type: In Office Time Spent with Patient (minutes): 38 Provider Statement: I spent 100% of the Face to Face Visit with the patient with greater than 50% spent counseling the patient and coordination of care.
[2020-06-30 15:49] VITALS: BP 110/60
== END 2020-06-30 14:55 | disposition home or self-care (01) ==
LOC: SC 14:54
PROVIDERS: ATTEND Nurse Practitioner Family
DX: G47.33 Obstructive sleep apnea (adult) (pediatric) (principal); Z68.38 Body mass index [BMI] 38.0-38.9, adult; E66.9 Obesity, unspecified
CPT/HCPCS: 99212; 99214

== ENCOUNTER 2020-07-10 11:47 | Emergency (ER) | payer MEDICAID ==
--- NOTE | 2020-07-10 13:03 | ED Physician Documentation ---
History of Present Illness - Stated complaint Stated Complaint: HERNANDEZ/WEAKNESS - Chief complaint Chief Complaint: Neuro - Additonal information Additional information: 54-year-old female presents to the emergency department for evaluation of near syncope and sudden onset headache. Patient reports that this a.m. she was getting ready to run errands and began to get a sudden global headache and felt like she was going to pass out. She says that the sensation lasted for about a minute before going away. She had no vomiting. Denies that she feels lightheaded at this time but does endorse a mild persistent headache. She denies chest pain or dyspnea. No history of previous syncope. She had not eaten this am She does have a history of diabetes, hypertension, epilepsy and depression. She states that she typically has seizures 4-5 times a year and the last seizure was last week. Review of Systems Constitutional: reports: Reviewed and negative Eyes: denies: Loss of vision, Decreased vision, Photophobia Ears: denies: Loss of hearing, Ear pain Nose: reports: Reviewed and negative Throat: reports: Reviewed and negative Cardiac: reports: Reviewed and negative. denies: Chest pain / pressure, Palpitations, Pedal edema, Calf pain Respiratory: reports: Reviewed and negative GI: reports: Reviewed and negative. denies: Nausea, Vomiting : denies: Dysuria, Frequency, Hesitancy Skin: reports: Reviewed and negative Musculoskeletal: reports: Reviewed and negative Neurologic: reports: Near syncope, Seizure (hx of seizure d/o. last seizure 1 week ago), Headache. denies: Numbness, Difficulty speaking, Syncope, Confused, Altered mental status, Head injury, LOC Psychiatric: reports: Depressed (on paroxetine). 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 : None HEENT: None Psych: Depression, Anxiety, ADD/ADHD Musculoskeletal: Osteoarthritis Derm: Herpes zoster, Rosacea - Past Surgical History Past Surgical History: Yes General: Appendectomy, Colonoscopy Ortho: Carpal Tunnel surgery - Present Medications Home Medications: Ambulatory Orders Medication Instructions Recorded Confirmed Atomoxetine HCl [Strattera] 60 mg PO DAILY 04/06/13 04/13/19 PARoxetine [Paxil] 50 mg PO DAILY 04/06/13 04/13/19 Polyethylene Glycol 3350 [Miralax] 17 gm PO BID 04/06/13 04/13/19 lamoTRIgine [Lamictal Xr] 300 mg PO DAILY 04/06/13 04/13/19 lisinopriL [Lisinopril] 10 mg PO DAILY 02/21/15 04/13/19 Multivitamin [Multivitamins] 1 each PO DAILY 10/30/15 04/13/19 Aspirin Chewable [St Alli 81 mg PO DAILY 04/13/19 04/13/19 Aspirin] Atorvastatin [Lipitor] 40 mg ORAL QPM 11/22/19 11/22/19 Cholestyramine [Questran] 4 gm PO DAILY 11/22/19 11/22/19 - Allergies Allergies/Adverse Reactions: Allergies Allergy/AdvReac Type Severity Reaction Status Date / Time sertraline [From Zoloft] AdvReac Respiratory Verified 07/10/20 12:10 - Social History Does the pt smoke?: No Smoking Status: Never smoker Does the pt drink ETOH?: No Does the pt have substance abuse?: No - Immunizations Immunizations are current?: Yes - POLST Patient has POLST: No PD ED PE EXPANDED - General General: Alert, No acute distress, Well developed/nourished - HEENT HEENT: Atraumatic, PERRL, EOMI - Eyes Eyes: PERRL, Normal accommodation - Neck Neck: Supple w/out meningeal sx. No: Adenopathy, Soft tissue TTP, Limited ROM - Cardiac Cardiac: Regular Rate, Regular Rhythm, Radial strong equal, Pedal strong equal, Cap refill < 2 sec - Respiratory Respiratory: Clear to ausultation jonny. No: Distress, Labored - Abdomen Abdomen: Normal Bowel sounds. No: Tender to palpation - Extremities Extremities: Normal - Neuro Neuro: Alert and Oriented X 3, CNII-XII intact, Cerebellar nl, Normal gait, Normal finger nose, Normal speech - GCS Eye Opening: Spontaneous Motor: Obeys Commands Verbal: Oriented Total: 15 Results - Vitals Vitals: Vital Signs - 24 hr 07/10/20 07/10/20 12:01 12:59 Temperature 36.5 C Heart Rate 77 Heart Rate [ 80 Sitting] Heart Rate [ 79 Standing] Heart Rate [ 78 Supine] Respiratory 14 Rate Blood Pressure 130/89 H Blood Pressure 121/94 H [Sitting] Blood Pressure 127/84 H [Standing] Blood Pressure 137/88 H [Supine] O2 Saturation 95 Oxygen O2 Source Room air - EKG (time done) 1302 Rate: Rate (enter#) (77) Rhythm: NSR [place]: Normal Intervals: Normal UT QRS: Low voltage Ischemia: Q waves (V1-V2 anteroseptal infacrt old and unchanged) Compare to prior EKG: Unchanged from prior EKG Computer interpretation: Agree with computer - Labs Labs: Laboratory Tests 07/10/20 07/10/20 07/10/20 12:17 13:08 13:16 WBC 5.7 RBC 3.87 L Hgb 11.5 L Hct 35.7 L MCV 92.2 MCH 29.7 MCHC 32.2 RDW 12.6 Plt Count 266 MPV 9.0 Neut # (Auto) 4.3 Lymph # (Auto) 0.9 L [place] # (Auto) 0.4 Eos # (Auto) 0.1 Baso # (Auto) 0.0 Absolute Nucleated RBC 0.00 Nucleated RBC % 0.0 Sodium Potassium Chloride Carbon Dioxide Anion Gap BUN Creatinine Estimated GFR (MDRD) Glucose POC Whole Bld Glucose 72 Calcium Total Bilirubin AST ALT Alkaline Phosphatase Troponin I High Sens Total Protein Albumin Globulin Albumin/Globulin Ratio Lipase Urine Color YELLOW Urine Clarity CLEAR Urine pH 7.0 Ur Specific [place] 1.010 Urine Protein NEGATIVE Urine Glucose (UA) NEGATIVE Urine Ketones NEGATIVE Urine Occult Blood NEGATIVE Urine Nitrite NEGATIVE Urine Bilirubin NEGATIVE Urine Urobilinogen 0.2 (NORMAL) Ur Leukocyte Esterase NEGATIVE Ur Microscopic Review NOT INDICATED Urine Culture Comments NOT INDICATED 07/10/20 07/10/20 13:16 13:16 WBC RBC Hgb Hct MCV MCH MCHC RDW Plt Count MPV Neut # (Auto) Lymph # (Auto) [place] # (Auto) Eos # (Auto) Baso # (Auto) Absolute Nucleated RBC Nucleated RBC % Sodium 132 L Potassium 3.7 Chloride 99 L Carbon Dioxide 26 Anion Gap 7.0 BUN 15 Creatinine 0.7 Estimated GFR (MDRD) 88 L Glucose 85 POC Whole Bld Glucose Calcium 8.9 Total Bilirubin 0.4 AST 22 ALT 27 Alkaline Phosphatase 50 Troponin I High Sens < 2.3 L Total Protein 6.8 Albumin 4.0 Globulin 2.8 Albumin/Globulin Ratio 1.4 Lipase 23 Urine Color Urine Clarity Urine pH Ur Specific [place] Urine Protein Urine Glucose (UA) Urine Ketones Urine Occult Blood Urine Nitrite Urine Bilirubin Urine Urobilinogen Ur Leukocyte Esterase Ur Microscopic Review Urine Culture Comments - Rads (name of study) Chest xray Radiology: EMP read indepedently (No acute cardiopulmonary process) CT head Radiology: Final report received (No acute intracranial process) PD MEDICAL DECISION MAKING - ED course Complexity details: reviewed old records, reviewed results, re-evaluated patient, considered differential, d/w patient ED course: 54-year-old female with a history of hypertension, diabetes epilepsy presents to the emergency department for sudden onset headache and near syncope. She has had many episodes of near syncope as well as headache in the past but denies that they have ever occurred together - orthostatic vitals unconcerning - ECG unchanged from previous, non ischemic. Negative trop - Head CT shows no acute intracranial defects. - Laboratory findings reveal no significant anemia. Her sodium is mildly low at 132 but not likely contributing to her symptoms. Urine shows no signs of infection. - Findings discussed with patient. Advised very close follow-up with primary care provider. Departure - Departure Disposition: 01 Home, Self Care Clinical Impression: Near syncope, History of epilepsy, History of diabetes mellitus Headache Qualifiers: Headache type: unspecified Headache chronicity pattern: acute headache Intractability: not intractable Qualified Code(s): R51.9 - Headache, unspecified Condition: Stable Record reviewed to determine appropriate education?: Yes Instructions: ED Near Syncope Unkn Follow-Up: Leonela Hameed MD [Primary Care Provider] - Within 1 week Comments: I hope that you are feeling better soon. Today your labs are essentially unremarkable. Your head CT and chest x-ray are normal. Your EKG is normal. Your vital signs in the emergency department have been normal. You have no signs of a urinary tract infection Please discuss this emergency department visit with your primary care provider. I do encourage you to drink lots of water and stay well-hydrated. Return to the emergency department if you develop suddenly severe chest pain, cannot breathe, have uncontrolled seizures or any fainting episodes
[2020-07-10 13:11] LABS: BILIRUBIN,URINE NEGATIVE (NEGATIVE); GLUCOSE, URINE (UA) NEGATIVE (NEGATIVE); KETONES,URINE (UA) NEGATIVE (NEGATIVE); LEUKOCYTE ESTERASE, URINE NEGATIVE (NEGATIVE); NITRITE,URINE NEGATIVE (NEGATIVE); OCCULT BLOOD,URINE NEGATIVE (NEGATIVE); PROTEIN,URINE NEGATIVE (NEGATIVE); UROBILINOGEN,URINE 0.2 (NORMAL) E.U./dL (NORMAL)
[2020-07-10 13:13] LABS: CLARITY,URINE CLEAR (CLEAR)
[2020-07-10 13:30] LABS: BASOPHILS % (AUTO) 0.5 %; EOSINOPHILS # (AUTO) 0.1 10^3/uL (0.0-0.7); EOSINOPHILS % (AUTO) 1.9 %; HGB - HEMOGLOBIN 11.5 g/dL (12.0-16.0); LYMPHOCYTES # (AUTO) 0.9 10^3/uL (1.5-3.5); MEAN CORPUSCULAR HEMOGLOBIN 29.7 pg (27.0-31.0); MEAN CORPUSCULAR HGB CONC 32.2 g/dL (32.0-36.0); MEAN CORPUSCULAR VOLUME 92.2 fL (81.0-99.0); MONOCYTES # (AUTO) 0.4 10^3/uL (0.0-1.0); MONOCYTES % (AUTO) 6.5 %; NEUTROPHILS # (AUTO) 4.3 10^3/uL (1.5-6.6); NEUTROPHILS % (AUTO) 74.9 %; PLT - PLATELET COUNT 266 10^3/uL (130-450); RED BLOOD COUNT 3.87 10^6/uL (4.20-5.40); RED CELL DISTRIBUTION WIDTH 12.6 % (12.0-15.0); WHITE BLOOD COUNT 5.7 x10^3/uL (4.8-10.8)
[2020-07-10 13:43] LABS: ALBUMIN/GLOBULIN RATIO 1.4 (1.0-2.2); BILIRUBIN,TOTAL 0.4 mg/dL (0.2-1.0); CALCIUM 8.9 mg/dL (8.5-10.3); CREATININE 0.7 mg/dL (0.4-1.0); TOTAL PROTEIN 6.8 g/dL (6.7-8.2)
--- NOTE | 2020-07-10 13:54 | XRAY Report ---
PROCEDURE: Chest 1 View X-Ray INDICATIONS: near syncope TECHNIQUE: One view of the chest was acquired. COMPARISON: 03/22/2020. FINDINGS: Surgical changes and devices: None. Lungs and pleura: No pleural effusions or definite pneumothorax. The medial lung apices are partial ly obscured by the patient's neck soft tissues. Visualized lungs are clear. There is hyperinflation o f the lungs with flattening of the hemidiaphragms redemonstrated compatible with COPD. Mediastinum: Mediastinal contours appear normal. Heart size is normal. Bones and chest wall: No suspicious bony lesions. Overlying soft tissues appear unremarkable. IMPRESSION: 1. No definite acute cardiopulmonary disease. 2. Findings compatible with COPD redemonstrated. Reviewed by: Marky Aranda MD on 07/10/2020 12:52 PM [facility] Approved by: Marky Aranda MD on 07/10/2020 12:52 PM [facility] Station ID: [id number]
--- NOTE | 2020-07-10 13:55 | CT Report ---
PROCEDURE: HEAD WO INDICATIONS: near syncope, sudden headache TECHNIQUE: Noncontrast 4.5 mm thick angled axial sections acquired from the foramen magnum to the vertex. For r adiation dose reduction, the following was used: automated exposure control, adjustment of mA and/or kV according to patient size. COMPARISON: None. FINDINGS: Image quality: Excellent. CSF spaces: Basal cisterns are patent. No extra-axial fluid collections. Ventricles are normal in size and shape. Brain: No midline shift. No intracranial masses or hemorrhage. Love-white matter interface is norm al. Skull and face: Calvarium and visualized facial bones are intact, without suspicious lesions. Sinuses: Visualized sinuses and mastoids are clear. IMPRESSION: Normal head CT. Reviewed by: Joe Fields MD on 07/10/2020 1:53 PM PDT Approved by: Joe Fields MD on 07/10/2020 1:53 PM PDT Station ID: [id number]
[2020-07-10 14:16] VITALS: BP 137/62
== END 2020-07-10 14:24 | disposition home or self-care (01) ==
LOC: ED 11:47
DX: R55 Syncope and collapse (principal); R51.9 Headache, unspecified; G40.909 Epilepsy, unspecified, not intractable, without status epilepticus; I10 Essential (primary) hypertension; E11.9 Type 2 diabetes mellitus without complications; F32.9 Major depressive disorder, single episode, unspecified; Z79.82 Long term (current) use of aspirin
CPT/HCPCS: 36415; 70450; 71045; 80053; 81001; 81003; 83690; 84484; 85025; 87086; 93005; 99284

== ENCOUNTER 2020-08-28 10:11 | Emergency (ER) | payer MEDICAID ==
[2020-08-28 10:45] LABS: BILIRUBIN,URINE NEGATIVE (NEGATIVE); GLUCOSE, URINE (UA) NEGATIVE (NEGATIVE); KETONES,URINE (UA) NEGATIVE (NEGATIVE); LEUKOCYTE ESTERASE, URINE NEGATIVE (NEGATIVE); NITRITE,URINE NEGATIVE (NEGATIVE); OCCULT BLOOD,URINE NEGATIVE (NEGATIVE); PH,URINE 7.5 PH (5.0-7.5); PROTEIN,URINE NEGATIVE (NEGATIVE); UROBILINOGEN,URINE 0.2 (NORMAL) E.U./dL (NORMAL)
[2020-08-28 10:46] LABS: CLARITY,URINE CLEAR (CLEAR)
[2020-08-28] MEDS ORDERED: SODIUM CHLORIDE 0.9% 1,000 ML IV STA (11:18)
[2020-08-28] MEDS ORDERED: DEXAMETHASONE 10 MG/ML VIAL IVP STA (11:18)
[2020-08-28] MEDS ORDERED: KETOROLAC 30 MG/ML VIAL IVP STA (11:18)
--- NOTE | 2020-08-28 11:24 | ED Physician Documentation ---
History of Present Illness - Stated complaint Stated Complaint: BODY ACHES - Chief complaint Chief Complaint: General - History obtained from History obtained from: Patient - History of Present Illness Timing: How many days ago (5) - Additonal information Additional information: 54 y/o female with a seizure disorder has some pain in the lower back on the right side and some sensation over the anterior chest with a deep breath. She is also complaining of feeling fatigued. She has been isolated at home and has only had one friend over in the past week. She is wondering about covid. She denies cough or fever. She has had some light headedness today. Review of Systems Constitutional: reports: Myalgias, Fatigue. denies: Fever Eyes: denies: Decreased vision Ears: denies: Ear pain, Drainage/discharge Nose: denies: Rhinorrhea / runny nose, Congestion Throat: denies: Dental pain / toothache, Sore throat Cardiac: denies: Chest pain / pressure, Palpitations, Pedal edema, Calf pain Respiratory: denies: Dyspnea, Cough, Wheezing GI: denies: Abdominal Pain, Nausea, Vomiting : denies: Dysuria, Frequency Skin: denies: Rash Musculoskeletal: reports: Back pain. 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 : None HEENT: None Psych: Depression, Anxiety, ADD/ADHD Musculoskeletal: Osteoarthritis Derm: Herpes zoster, Rosacea - Past Surgical History Past Surgical History: Yes General: Appendectomy, Colonoscopy Ortho: Carpal Tunnel surgery - Present Medications Home Medications: Ambulatory Orders Medication Instructions Recorded Confirmed Atomoxetine HCl [Strattera] 60 mg PO DAILY 04/06/13 04/13/19 PARoxetine [Paxil] 50 mg PO DAILY 04/06/13 04/13/19 Polyethylene Glycol 3350 [Miralax] 17 gm PO BID 04/06/13 04/13/19 lamoTRIgine [Lamictal Xr] 300 mg PO DAILY 04/06/13 04/13/19 lisinopriL [Lisinopril] 10 mg PO DAILY 02/21/15 04/13/19 Multivitamin [Multivitamins] 1 each PO DAILY 10/30/15 04/13/19 Aspirin Chewable [St Alli 81 mg PO DAILY 04/13/19 04/13/19 Aspirin] Atorvastatin [Lipitor] 40 mg ORAL QPM 11/22/19 11/22/19 Cholestyramine [Questran] 4 gm PO DAILY 11/22/19 11/22/19 - Allergies Allergies/Adverse Reactions: Allergies Allergy/AdvReac Type Severity Reaction Status Date / Time sertraline [From Zoloft] AdvReac Respiratory Verified 08/28/20 10:19 - Social History Does the pt smoke?: No Smoking Status: Never smoker Does the pt drink ETOH?: No Does the pt have substance abuse?: No - Immunizations Immunizations are current?: Yes - POLST Patient has POLST: No PD ED PE NORMAL - Vitals Vital signs reviewed: Yes (hypertensive ) - General General: Alert and oriented X 3, No acute distress, Well developed/nourished - HEENT HEENT: Atraumatic, PERRL, EOMI, Ears normal - Neck Neck: Supple, no meningeal sign, No bony TTP - Cardiac Cardiac: RRR, No murmur - Respiratory Respiratory: No respiratory distress, Clear bilaterally - Abdomen Abdomen: Normal bowel sounds, Soft, Non tender, Non distended, No organomegaly - Back Back: No CVA TTP, No spinal TTP, Other (mild tenderness to the paraspinous muscles of the lower lumbar spine on the right. ) - Derm Derm: Normal color, Warm and dry, No rash - Extremities Extremities: No deformity, No edema - Neuro Neuro: Alert and oriented X 3, braider operator 2-12 intact, No motor deficit, No sensory deficit, Normal speech Eye Opening: Spontaneous Motor: Obeys Commands Verbal: Oriented GCS Score: 15 - Psych Psych: Normal mood, Normal affect Results - Vitals Vitals: Vital Signs - 24 hr 08/28/20 08/28/20 10:15 12:51 Temperature 36.2 C L 36.5 C Heart Rate 85 78 Respiratory 16 16 Rate Blood Pressure 132/89 H 120/71 O2 Saturation 98 100 Oxygen O2 Source Room air - Labs Labs: Laboratory Tests 08/28/20 08/28/20 08/28/20 10:30 11:50 12:24 WBC 4.8 RBC 4.58 Hgb 13.5 Hct 41.3 MCV 90.2 MCH 29.5 MCHC 32.7 RDW 12.6 Plt Count 314 MPV 9.7 Neut # (Auto) 3.3 Lymph # (Auto) 1.0 L [place] # (Auto) 0.3 Eos # (Auto) 0.2 Baso # (Auto) 0.0 Absolute Nucleated RBC 0.00 Nucleated RBC % 0.0 Sodium 136 Potassium 3.9 Chloride 103 Carbon Dioxide 24 Anion Gap 9.0 BUN 17 Creatinine 0.7 Estimated GFR (MDRD) 88 L Glucose 102 H Calcium 8.7 Total Bilirubin 0.5 AST 19 ALT 22 Alkaline Phosphatase 59 Total Protein 6.5 L Albumin 3.7 Globulin 2.8 Albumin/Globulin Ratio 1.3 Lipase 22 Urine Color YELLOW Urine Clarity CLEAR Urine pH 7.5 Ur Specific [place] 1.015 Urine Protein NEGATIVE Urine Glucose (UA) NEGATIVE Urine Ketones NEGATIVE Urine Occult Blood NEGATIVE Urine Nitrite NEGATIVE Urine Bilirubin NEGATIVE Urine Urobilinogen 0.2 (NORMAL) Ur Leukocyte Esterase NEGATIVE Ur Microscopic Review NOT INDICATED Urine Culture Comments NOT INDICATED - Rads (name of study) CHEST 2 VIEW Radiology: Prelim report reviewed (Impression: No evidence of acute pulmonary process.), EMP read indepedently, See rad report Procedures - Bedside sono Bedside sono by EMP: With the use of bedside ultrasound the right kidney is imaged and it is sonographically non-tender and without evidence of hydro. - IVC sono (time) 1110 Bedside IVC sono: IVC measures (cm) (0.72), IVC collapsed c insp (cm) (complete), Dehydration (est 2+ Liter deficit) PD MEDICAL DECISION MAKING - ED course Complexity details: reviewed results, re-evaluated patient, considered differential, d/w patient ED course: 54-year-old female with general complaints is found to be dehydrated on interrogation of the inferior vena cava and intravenous saline is administered. The patient has pain in the right flank area and this is actually in the paraspinous muscles lower in the lumbar spine. She has a nontender nontender kidney on sonographic palpation and an unremarkable urine.She is administered dexamethasone and Toradol with her saline. She has improvement. She does not feel she needs pain medications for her back pain. Departure - Departure Disposition: 01 Home, Self Care Clinical Impression: Dehydration, Spasm of back muscles Condition: Stable Instructions: ED Spasm Back No Trauma, ED Dehydration Follow-Up: Leonela Hameed MD [Primary Care Provider] - Discharge Date/Time: 08/28/20 13:16
--- NOTE | 2020-08-28 11:41 | XRAY Report ---
PROCEDURE: Chest 2 View X-Ray INDICATIONS: cough TECHNIQUE: 2 view(s) of the chest. COMPARISON: None. FINDINGS: Surgical changes and devices: None. Lungs and pleura: No pleural effusions or pneumothorax. Lungs are clear. Mediastinum: Mediastinal contours are normal. Heart size is normal. Bones and chest wall: No suspicious bony abnormalities. Soft tissues appear unremarkable. IMPRESSION: No evidence acute pulmonary process. Reviewed by: Deniz Carson MD on 08/28/2020 11:40 AM [facility] Approved by: Deniz Carson MD on 08/28/2020 11:40 AM PST Station ID: [id number]
[2020-08-28 12:02] LABS: BASOPHILS % (AUTO) 0.8 %; EOSINOPHILS # (AUTO) 0.2 10^3/uL (0.0-0.7); EOSINOPHILS % (AUTO) 3.3 %; HGB - HEMOGLOBIN 13.5 g/dL (12.0-16.0); LYMPHOCYTES % (AUTO) 20.7 %; MEAN CORPUSCULAR HEMOGLOBIN 29.5 pg (27.0-31.0); MEAN CORPUSCULAR HGB CONC 32.7 g/dL (32.0-36.0); MEAN CORPUSCULAR VOLUME 90.2 fL (81.0-99.0); MEAN PLATELET VOLUME 9.7 fL (7.9-10.8); MONOCYTES # (AUTO) 0.3 10^3/uL (0.0-1.0); MONOCYTES % (AUTO) 6.6 %; NEUTROPHILS # (AUTO) 3.3 10^3/uL (1.5-6.6); NEUTROPHILS % (AUTO) 68.4 %; PLT - PLATELET COUNT 314 10^3/uL (130-450); RED BLOOD COUNT 4.58 10^6/uL (4.20-5.40); RED CELL DISTRIBUTION WIDTH 12.6 % (12.0-15.0); WHITE BLOOD COUNT 4.8 x10^3/uL (4.8-10.8)
[2020-08-28 12:41] LABS: ALBUMIN 3.7 g/dL (3.2-5.5); ALBUMIN/GLOBULIN RATIO 1.3 (1.0-2.2); BILIRUBIN,TOTAL 0.5 mg/dL (0.2-1.0); CALCIUM 8.7 mg/dL (8.5-10.3); CREATININE 0.7 mg/dL (0.4-1.0); TOTAL PROTEIN 6.5 g/dL (6.7-8.2)
[2020-08-28 12:52] VITALS: BP 120/71
== END 2020-08-28 13:16 | disposition home or self-care (01) ==
LOC: ED 10:11
DX: E86.0 Dehydration (principal); M62.830 Muscle spasm of back; M54.5 Low back pain; Z20.828 Contact with and (suspected) exposure to other viral communicable diseases; G40.909 Epilepsy, unspecified, not intractable, without status epilepticus; I10 Essential (primary) hypertension; E11.9 Type 2 diabetes mellitus without complications; Z79.82 Long term (current) use of aspirin
CPT/HCPCS: 36415; 71046; 80053; 81001; 81003; 83690; 85025; 87086; 96361; 96374; 99284

== ENCOUNTER 2020-09-03 19:52 | Emergency (ER) | payer MEDICAID ==
[2020-09-03] MEDS ORDERED: KETOROLAC 60 MG/2 ML VIAL IM STA (20:21)
--- NOTE | 2020-09-03 20:27 | ED Physician Documentation ---
History of Present Illness - Stated complaint Stated Complaint: BACK PX - Chief complaint Chief Complaint: Back Pain - Additonal information Additional information: 54-year-old woman with past medical history of depression, seizure disorder, chronic lower back pain presents with lower back pain again this evening that was gradual onset, exacerbated after getting off her exercise bike around 5 PM, Worse with movement and walking around, without associated features. Mild/moderate severity. Denies urinary symptoms, saddle anesthesia, weakness or sensory loss. 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 HEENT: None Psych: Depression, Anxiety, ADD/ADHD Musculoskeletal: Osteoarthritis Derm: Herpes zoster, Rosacea - Past Surgical History Past Surgical History: Yes General: Appendectomy, Colonoscopy Ortho: Carpal Tunnel surgery - Present Medications Home Medications: Ambulatory Orders Medication Instructions Recorded Confirmed Atomoxetine HCl [Strattera] 60 mg PO DAILY 04/06/13 04/13/19 PARoxetine [Paxil] 50 mg PO DAILY 04/06/13 04/13/19 Polyethylene Glycol 3350 [Miralax] 17 gm PO BID 04/06/13 04/13/19 lamoTRIgine [Lamictal Xr] 300 mg PO DAILY 04/06/13 04/13/19 lisinopriL [Lisinopril] 10 mg PO DAILY 02/21/15 04/13/19 Multivitamin [Multivitamins] 1 each PO DAILY 10/30/15 04/13/19 Aspirin Chewable [St Alli 81 mg PO DAILY 04/13/19 04/13/19 Aspirin] Atorvastatin [Lipitor] 40 mg ORAL QPM 11/22/19 11/22/19 Cholestyramine [Questran] 4 gm PO DAILY 11/22/19 11/22/19 - Allergies Allergies/Adverse Reactions: Allergies Allergy/AdvReac Type Severity Reaction Status Date / Time sertraline [From Zoloft] AdvReac Respiratory Verified 09/03/20 19:59 - Social History Does the pt smoke?: No Smoking Status: Never smoker Does the pt drink ETOH?: No Does the pt have substance abuse?: No - Immunizations Immunizations are current?: Yes - POLST Patient has POLST: No PD ED PE NORMAL - Vitals Vital signs reviewed: Yes - General General: Alert and oriented X 3 - HEENT HEENT: Atraumatic, PERRL, EOMI - Neck Neck: No bony TTP - Back Back: No CVA TTP, No spinal TTP, Other (BL lateral lumbosacral discomfort to palpation in muscular distribution. ) - Extremities Extremities: No deformity - Neuro Neuro: Alert and oriented X 3 Verbal: None (normal sensorineural exam of lower extremity) - Psych Psych: Normal mood, Normal affect Results - Vitals Vitals: Vital Signs - 24 hr 09/03/20 19:54 Temperature 36.4 C L Heart Rate 95 Respiratory 17 Rate Blood Pressure 129/84 H O2 Saturation 98 Oxygen O2 Source Room air PD MEDICAL DECISION MAKING - ED course Complexity details: d/w patient ED course: 54-year-old woman with chronic back pain presents with the same today, requesting Toradol shot. Patient declined Robaxin, stating that she did not want to get sleepy. Educated about conservative therapies for back pain. Red flags for return discussed. Patient is considering physical therapy and will follow up in the morning. Departure - Departure Disposition: 01 Home, Self Care Clinical Impression: Back pain, Low back pain Condition: Good Instructions: ED Spasm Back No Trauma Comments: Ms. Mcdaniel, it was nice to meet you today!You were given Toradol, and anti- inflammatory medication to treat your back pain. Do not take Advil, motrin or ibuprofen for 6 hours after Toradol. This is a nondrowsy medication so it is okay to drive home. Do gentle stretching exercises in a hot shower and consider getting a foam roller on [employer]. Icy hot patches can be helpful. Consider making an appointment for physical therapy. Follow up with your primary doctor. Return to the ED for any new or worsening symptoms.
[2020-09-03 20:37] VITALS: BP 120/60
== END 2020-09-03 20:41 | disposition home or self-care (01) ==
LOC: ED 19:52
DX: M54.5 Low back pain (principal); G89.29 Other chronic pain; I10 Essential (primary) hypertension; E11.9 Type 2 diabetes mellitus without complications; G40.909 Epilepsy, unspecified, not intractable, without status epilepticus; F32.9 Major depressive disorder, single episode, unspecified; Z79.82 Long term (current) use of aspirin
CPT/HCPCS: 96372; 99283; 99284

== ENCOUNTER 2020-12-26 12:54 | Outpatient (CLI) | payer MEDICAID ==
--- NOTE | 2020-12-26 13:25 | SLEEP CARE CONSULTATION ---
Information from patient questionnaire entered by Dayanna Keene. I have reviewed and concur with the information entered by Dayanna Keene. This document represents the service I personally performed and the decisions made by , Lizzy Moreno ARNP. History of Present Illness Service Date and Time: 12/26/2020 1254 Previous diagnosis: Mild, Obstructive Sleep Apnea-Hypopnea Syndrome AHI: 10.4 (in 2012) Reason for follow up: six month Equipment type: CPAP Equipment obtained from: [employer] (getting supplies as needed) Mask style: Full face Backup mask available: Yes (old mask) Last cushion change: not sure Prior sleep studies: Yes Year and Where: 2013 - [facility] Type of Sleep Study: Polysomnography HPI additional information: TORIE COOPER was diagnosed to have mild, AHI 10.4, obstructive sleep apnea- hypopnea syndrome and returned today for CPAP therapy six month follow-up. CPAP Compliance Data - Data Reviewed with Patient Average duration of nightly device use: 6 hr 10 min Compliance rate %: 80.0 Current pressure setting (cmH2O): 11 Humidity settin Heated hose settin Average residual AHI: 1.5 Average large leak: 2 min 26 sec Subjective Missed days of use due to: reports: other (lack of self-discipline) Patient concerns: reports: air blowing in eyes, mask leak noise, dry mouth, nose, throat (dry mouth that improved with increasing humidity; still has some), other (fitting issues-time for a new mask though). denies: aerophagia, mask discomfort, condensation in mask/hose, nasal congestion Observed to snore while using device: No Current pressure setting perceived as: comfortable On therapy, patient: reports: sleeping better, awakening more refreshed, being more awake and alert during the day, more rested overall. denies: drowsiness while driving Initial [place] Sleepiness Scale score: 16 (in 2010) Current [place] Sleepiness Scale score: 15 Allergies and Home Medications Home medication list reviewed: Yes (lower dose paroxitine) Review of Systems Review of systems same as previous: Yes (no changes) Physical Exam Heart Rate: 89 O2 Saturation: 98 Height: 5 ft 1.5 in Weight: 202 lb Body Mass Index: 37.5 BMI Classification: Obese Impression and Plan 1. Obstructive Sleep Apnea-Hypopnea Syndrome, mild, with good treatment compliance and good apnea control. On CPAP therapy, the patient has better sleep quality and is more rested overall. She has not been washing her mask daily and needs to replace the current mask. She is getting some air leaking noise and some air in her eyes. Mask leaks can be reduced by washing mask daily and changing mask cushions more frequently to improve mask seal and comfort. She has also had some mouth dryness. She increased her humidity with some improvment but still has a little dryness. Oral dryness can be reduced by adjusting humidity setting higher or heated hose lower or by adjusting both settings. In addition, there are oral dryness products that can be used to reduce dryness such as Biotene products, Dry mouth rinse and Xylomelts. Patient to discuss best option with dentist. Patient's apnea severity and rationale for treatment to reduce apnea, improve sleep quality and reduce cardiovascular and cerebrovascular events was reviewed. I also reviewed the benefit of consistent device use of CPAP for hypertension, diabetes, and depression/anxiety. * Continue auto CPAP pressure at 11 cmH2O * Notify me if snoring with mask or feeling that the pressure is too much or too little * Attempt to lose weight * Call this office if any problems using CPAP * Return for follow up in 1 year, or sooner if concerns arise Counseling Topics: Spare mask, Weight loss health impact Visit Type: In Office Time Spent with Patient (minutes): 21 Provider Statement: I spent 100% of the Face to Face Visit with the patient with greater than 50% spent counseling the patient and coordination of care.
== END 2020-12-26 12:55 | disposition home or self-care (01) ==
LOC: SC 12:54
PROVIDERS: ATTEND Nurse Practitioner Family
DX: G47.33 Obstructive sleep apnea (adult) (pediatric) (principal); E66.9 Obesity, unspecified; Z68.37 Body mass index [BMI] 37.0-37.9, adult
CPT/HCPCS: 99212; 99213

== ENCOUNTER 2021-01-21 17:06 | Emergency (ER) | payer MEDICAID ==
--- OUTSIDE RECORDS SUMMARY | 2021-01-21 17:36 | EXTERNAL MEDICAL SUMMARY RPT | Continuity of Care Document ---
:1965 Demographics Phone Unavailable Preferred Language Unknown Marital Status Unknown Quaker Affiliation Unknown Race Unknown Ethnic Group Unknown Author Organization [facility] Address [address] [id number] Phone Social History date description facility [id number]
[2021-01-21 17:44] LABS: BILIRUBIN,URINE NEGATIVE (NEGATIVE); GLUCOSE, URINE (UA) NEGATIVE (NEGATIVE); KETONES,URINE (UA) NEGATIVE (NEGATIVE); LEUKOCYTE ESTERASE, URINE TRACE (NEGATIVE); NITRITE,URINE NEGATIVE (NEGATIVE); OCCULT BLOOD,URINE LARGE (NEGATIVE); PH,URINE 5.5 PH (5.0-7.5); PROTEIN,URINE NEGATIVE (NEGATIVE); UROBILINOGEN,URINE 0.2 (NORMAL) E.U./dL (NORMAL)
[2021-01-21 17:45] LABS: CLARITY,URINE CLEAR (CLEAR)
[2021-01-21 18:02] LABS: BACTERIA,URINE Rare /HPF (None Seen); SQUAMOUS EPITHELIAL CELL,UR FEW Squamous (<= Few); WBC,URINE 0-3 /HPF (0-5)
--- NOTE | 2021-01-21 18:09 | ED Physician Documentation ---
History of Present Illness - Stated complaint Stated Complaint: FEMALE , - Chief complaint Chief Complaint: UTI - History obtained from History obtained from: Patient - History of Present Illness Timing: How many days ago (2) Pain level max: 3 Pain level now: 3 - Additonal information Additional information: Patient is a 55-year-old female who presents to the emergency department complaining of symptoms of a urinary tract infection. This started 2 days ago. Dysuria and discomfort. Also has mild low back pain. This is a chronic ongoing issue for her. Nonradiating. Worse with movement and better with rest. No loss of bowel or bladder control. No trauma. No falls. She also states that she is unsure if she took her last tampon out or not. She thinks that it may be retained but she is unsure. She states she thinks she felt strings in her vagina but that may be her IUD. Review of Systems Ten Systems: 10 systems reviewed and negative Constitutional: denies: Fever, Chills Ears: denies: Ear pain Nose: denies: Rhinorrhea / runny nose, Congestion Respiratory: denies: Cough GI: denies: Abdominal Pain, Nausea, Vomiting, Diarrhea : reports: Dysuria, Frequency, Hesitancy, Vaginal bleeding (currently on her menses) Skin: denies: Rash Musculoskeletal: denies: Neck pain, Back pain Neurologic: denies: Headache PD PAST MEDICAL HISTORY - Past Medical History Cardiovascular: Hypertension, High cholesterol Respiratory: Sleep apnea, CPAP use Neuro: Seizure disorder Endocrine/Autoimmune: Type 2 diabetes GI: None, Chronic constipation, Hemorrhoids 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 : None HEENT: None Psych: Depression, Anxiety, ADD/ADHD Musculoskeletal: Osteoarthritis Derm: Herpes zoster, Rosacea - Past Surgical History Past Surgical History: Yes General: Appendectomy, Colonoscopy Ortho: Carpal Tunnel surgery - Present Medications Home Medications: Ambulatory Orders Medication Instructions Recorded Confirmed Atomoxetine HCl [Strattera] 60 mg PO DAILY 04/06/13 01/21/21 PARoxetine [Paxil] 20 mg PO DAILY 04/06/13 01/21/21 lamoTRIgine [Lamictal Xr] 300 mg PO DAILY 04/06/13 01/21/21 lisinopriL [Lisinopril] 10 mg PO DAILY 02/21/15 01/21/21 Multivitamin [Multivitamins] 1 each PO DAILY 10/30/15 01/21/21 Aspirin Chewable [St Alli 81 mg PO DAILY 04/13/19 01/21/21 Aspirin] Atorvastatin [Lipitor] 40 mg ORAL QPM 11/22/19 01/21/21 Linaclotide [Linzess] 1 tab ONCE 01/21/21 01/21/21 cephALEXin [Keflex] 500 mg PO Q6H #20 cap 01/21/21 - Allergies Allergies/Adverse Reactions: Allergies Allergy/AdvReac Type Severity Reaction Status Date / Time sertraline [From Zoloft] AdvReac Respiratory Verified 01/21/21 17:17 - Social History Does the pt smoke?: No Smoking Status: Never smoker Does the pt drink ETOH?: No Does the pt have substance abuse?: No - Immunizations Immunizations are current?: Yes - POLST Patient has POLST: No PD ED PE NORMAL - Vitals Vital signs reviewed: Yes - General General: Alert and oriented X 3, No acute distress, Well developed/nourished - HEENT HEENT: Moist mucous membranes - Neck Neck: Supple, no meningeal sign - Cardiac Cardiac: RRR, Strong equal pulses - Respiratory Respiratory: No respiratory distress, Clear bilaterally - Abdomen Abdomen: Soft, Non tender, Non distended - Female Female : 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 ) - Back Back: No CVA TTP, No spinal TTP - Derm Derm: Warm and dry - Extremities Extremities: No edema - Neuro Neuro: Alert and oriented X 3 - Psych Psych: Normal mood, Normal affect Results - Vitals Vitals: Vital Signs - 24 hr 01/21/21 01/21/21 01/21/21 17:14 19:27 19:31 Temperature 35.9 C L 36 C L 36 C L Heart Rate 92 88 88 Respiratory 16 16 16 Rate Blood Pressure 131/76 H 129/72 126/72 O2 Saturation 100 100 100 Oxygen O2 Source Room air - Labs Labs: Laboratory Tests 01/21/21 17:30 Urine Color LT RED Urine Clarity CLEAR Urine pH 5.5 Ur Specific [place] <=1.005 Urine Protein NEGATIVE Urine Glucose (UA) NEGATIVE Urine Ketones NEGATIVE Urine Occult Blood LARGE H Urine Nitrite NEGATIVE Urine Bilirubin NEGATIVE Urine Urobilinogen 0.2 (NORMAL) Ur Leukocyte Esterase TRACE H Urine RBC 6-10 H Urine WBC 0-3 Ur Squamous Epith Cells FEW Squamous Urine Bacteria Rare Ur Microscopic Review INDICATED Urine Culture Comments INDICATED PD MEDICAL DECISION MAKING - ED course Complexity details: reviewed results, considered differential, d/w patient ED course: Patient with symptoms of UTI. Will place on antibiotics. No vaginal foreign body. No evidence of pyelonephritis. No fever. Patient counseled regarding signs and symptoms for which I believe and urgent re-evaluation would be necessary. Patient with good understanding of and agreement to plan and is comfortable going home at this time This document was made in part using voice recognition software. While efforts are made to proofread this document, sound alike and grammatical errors may occur. Departure - Departure Disposition: 01 Home, Self Care Clinical Impression: Urinary tract infection Qualifiers: Urinary tract infection type: acute cystitis Hematuria presence: without hematuria Qualified Code(s): N30.00 - Acute cystitis without hematuria Condition: Good Instructions: ED UTI Cystitis Female Follow-Up: Leonela Hameed MD [Primary Care Provider] - As Needed Prescriptions: cephALEXin [Keflex] 500 mg PO Q6H #20 cap Comments: Take all antibiotics until gone. Return if you worsen. Follow-up with your doctor for further care. Discharge Date/Time: 01/21/21 19:31
[2021-01-21] MEDS ORDERED: cephALEXin 250 MG CAPSULE PO STA (19:16)
[2021-01-21 19:32] VITALS: BP 126/72
== END 2021-01-21 19:31 | disposition home or self-care (01) ==
LOC: ED 17:06
DX: N30.00 Acute cystitis without hematuria (principal); I10 Essential (primary) hypertension; E11.9 Type 2 diabetes mellitus without complications
CPT/HCPCS: 81001; 87086; 99283; 99284; A9270; 81003

== ENCOUNTER 2021-02-19 08:38 | Outpatient (CLI) | payer MEDICAID | END 2021-02-19 08:39 | disposition home or self-care (01) | LOC: DI 08:38 | PROVIDERS: ATTEND Internal Medicine | DX: M79.642 Pain in left hand (principal) ==

== ENCOUNTER 2021-02-19 08:42 | Outpatient (CLI) | payer MEDICAID ==
--- NOTE | 2021-02-19 11:42 | XRAY Report ---
PROCEDURE: Lumbar Spine 2 View INDICATIONS: LOW BACK PAIN TECHNIQUE: 2 views of the lumbar spine were acquired. COMPARISON: MRI lumbar spine, 01/15/2020. FINDINGS: Bones: 5 sll-fev-febzstm vertebrae are present. There is normal bony alignment. No vertebral body compression fractures. No suspicious bony lesions. Mild degenerative disc disease at-T12, T12-L1, L 2 and L5-S1. Mild facet arthropathy at L5-S1. Soft tissues: Overlying bowel gas pattern is normal. No suspicious soft tissue calcifications. A l arge amount of stool in colon. IMPRESSION: Mild degenerative disc and facet disease in lumbar spine. Reviewed by: Anabela Massey MD on 02/19/2021 11:40 AM PDT Approved by: Anabela Massey MD on 02/19/2021 11:40 AM PDT Station ID: [id number]
--- NOTE | 2021-02-19 11:43 | XRAY Report ---
PROCEDURE: Hand 3 View LT INDICATIONS: HAND PAIN TECHNIQUE: The views of the hand(s) acquired. COMPARISON: X-ray left hand, 3 views, 08/31/2018 FINDINGS: Bones: No fractures or dislocations. No suspicious bony lesions. Soft tissues: No suspicious soft tissue calcifications. IMPRESSION: Normal left hand radiographs. Reviewed by: Anabela Massey MD on 02/19/2021 11:41 AM PDT Approved by: Anabela Massey MD on 02/19/2021 11:41 AM PDT Station ID: [id number]
--- NOTE | 2021-02-19 11:43 | XRAY Report ---
PROCEDURE: Foot 3 View BILAT INDICATIONS: ARTHRALGIA TECHNIQUE: 3 views of the left and right foot were acquired. COMPARISON: None FINDINGS: Bones: No fractures or dislocations. No suspicious bony lesions. Ggvo-nq-eyykwspc osteoarthritic c hanges at multiple tarsometatarsal joints and interphalangeal joints bilaterally. Calcaneal spurring bilaterally. No bony erosions. Soft tissues: No tibiotalar joint effusion. Achilles tendon appears normal. IMPRESSION: 1. Apvc-ma-wndmapgr osteoarthritis bilaterally. 2. Calcaneal spurring. Reviewed by: Anabela Massey MD on 02/19/2021 11:42 AM PDT Approved by: Anabela Massey MD on 02/19/2021 11:42 AM PDT Station ID: [id number]
== END 2021-02-19 08:43 | disposition home or self-care (01) ==
LOC: DI 08:42
PROVIDERS: ATTEND Internal Medicine
DX: M19.072 Primary osteoarthritis, left ankle and foot (principal); M19.071 Primary osteoarthritis, right ankle and foot; M77.32 Calcaneal spur, left foot; M77.31 Calcaneal spur, right foot; M47.816 Spondylosis without myelopathy or radiculopathy, lumbar region; M51.36 Other intervertebral disc degeneration, lumbar region; M25.50 Pain in unspecified joint

== ENCOUNTER 2021-07-07 14:17 | Outpatient (CLI) | payer MEDICAID ==
[2021-07-07 14:29] LABS: BASOPHILS % (AUTO) 0.6 %; EOSINOPHILS # (AUTO) 0.1 10^3/uL (0.0-0.7); EOSINOPHILS % (AUTO) 2.1 %; HCT - HEMATOCRIT 36.2 % (37.0-47.0); HGB - HEMOGLOBIN 11.5 g/dL (12.0-16.0); LYMPHOCYTES # (AUTO) 1.3 10^3/uL (1.5-3.5); LYMPHOCYTES % (AUTO) 20.6 %; MEAN CORPUSCULAR HEMOGLOBIN 29.6 pg (27.0-31.0); MEAN CORPUSCULAR HGB CONC 31.8 g/dL (32.0-36.0); MEAN CORPUSCULAR VOLUME 93.3 fL (81.0-99.0); MEAN PLATELET VOLUME 9.4 fL (7.9-10.8); MONOCYTES # (AUTO) 0.4 10^3/uL (0.0-1.0); MONOCYTES % (AUTO) 6.5 %; NEUTROPHILS # (AUTO) 4.4 10^3/uL (1.5-6.6); PLT - PLATELET COUNT 226 10^3/uL (130-450); RED BLOOD COUNT 3.88 10^6/uL (4.20-5.40); RED CELL DISTRIBUTION WIDTH 12.8 % (12.0-15.0); WHITE BLOOD COUNT 6.3 x10^3/uL (4.8-10.8)
[2021-07-07 14:46] LABS: ALBUMIN/GLOBULIN RATIO 1.5 (1.0-2.2); ALKALINE PHOSPHATASE 43 IU/L (42-121); ALT ALANINE AMINOTRANSFERASE 23 IU/L (10-60); AST ASPARTATE AMINOTRANSFERASE 26 IU/L (10-42); BILIRUBIN,TOTAL 0.5 mg/dL (0.2-1.0); BUN - BLOOD UREA NITROGEN 14 mg/dL (6-20); CALCIUM 8.8 mg/dL (8.5-10.3); CARBON DIOXIDE - CO2 25 mmol/L (21-32); CHLORIDE 98 mmol/L (101-111); CHOL/HDL RATIO 2.2 (<4.4); CHOLESTEROL 126 mg/dL; CREATININE 0.8 mg/dL (0.4-1.0); GFR - MDRD 75 (>89); GLUCOSE 85 mg/dL (70-100); HDL CHOLESTEROL 58 mg/dL; LDL CHOLESTEROL,CALCULATED 57 mg/dL; POTASSIUM 4.1 mmol/L (3.5-5.0); SODIUM 131 mmol/L (135-145); TOTAL PROTEIN 6.7 g/dL (6.7-8.2); TRIGLYCERIDES 56 mg/dL; VLDL CHOLESTEROL 11 mg/dL
[2021-07-07 20:19] LABS: ESTIMATED AVERAGE GLUCOSE 126 mg/dL (70-100)
== END 2021-07-07 14:18 | disposition home or self-care (01) ==
LOC: LAB 14:17
PROVIDERS: ATTEND Internal Medicine
DX: I10 Essential (primary) hypertension (principal); E78.5 Hyperlipidemia, unspecified; R00.2 Palpitations; Z79.899 Other long term (current) drug therapy; E74.9 Disorder of carbohydrate metabolism, unspecified
CPT/HCPCS: 36415; 80053; 80061; 83036; 83721; 85025

== ENCOUNTER 2021-07-15 07:00 | Outpatient (CLI) | payer MEDICAID ==
[2021-07-15 15:13] LABS: BASOPHILS % (AUTO) 0.7 %; EOSINOPHILS # (AUTO) 0.2 10^3/uL (0.0-0.7); EOSINOPHILS % (AUTO) 2.9 %; HCT - HEMATOCRIT 39.9 % (37.0-47.0); HGB - HEMOGLOBIN 12.8 g/dL (12.0-16.0); LYMPHOCYTES # (AUTO) 1.1 10^3/uL (1.5-3.5); LYMPHOCYTES % (AUTO) 20.2 %; MEAN CORPUSCULAR HEMOGLOBIN 29.6 pg (27.0-31.0); MEAN CORPUSCULAR HGB CONC 32.1 g/dL (32.0-36.0); MEAN CORPUSCULAR VOLUME 92.4 fL (81.0-99.0); MEAN PLATELET VOLUME 9.1 fL (7.9-10.8); MONOCYTES # (AUTO) 0.3 10^3/uL (0.0-1.0); MONOCYTES % (AUTO) 6.2 %; NEUTROPHILS # (AUTO) 3.8 10^3/uL (1.5-6.6); NEUTROPHILS % (AUTO) 69.8 %; PLT - PLATELET COUNT 249 10^3/uL (130-450); RED BLOOD COUNT 4.32 10^6/uL (4.20-5.40); RED CELL DISTRIBUTION WIDTH 12.5 % (12.0-15.0); WHITE BLOOD COUNT 5.5 x10^3/uL (4.8-10.8)
[2021-07-15 15:45] LABS: CALCIUM 9.3 mg/dL (8.5-10.3); CREATININE 0.8 mg/dL (0.4-1.0); POTASSIUM 3.8 mmol/L (3.5-5.0)
== END 2021-07-15 23:59 | disposition home or self-care (01) ==
LOC: LAB 07:00
PROVIDERS: ATTEND Internal Medicine
DX: D64.9 Anemia, unspecified (principal); Z79.899 Other long term (current) drug therapy
CPT/HCPCS: 36415; 80048; 83540; 84466; 85025

== ENCOUNTER 2021-08-05 10:30 | Outpatient (CLI) | payer MEDICAID ==
[2021-08-05 15:58] LABS: BILIRUBIN,URINE NEGATIVE (NEGATIVE); GLUCOSE, URINE (UA) NEGATIVE (NEGATIVE); KETONES,URINE (UA) NEGATIVE (NEGATIVE); LEUKOCYTE ESTERASE, URINE NEGATIVE (NEGATIVE); NITRITE,URINE NEGATIVE (NEGATIVE); OCCULT BLOOD,URINE NEGATIVE (NEGATIVE); PROTEIN,URINE NEGATIVE (NEGATIVE); UROBILINOGEN,URINE 0.2 (NORMAL) E.U./dL (NORMAL)
[2021-08-05 16:01] LABS: CLARITY,URINE CLEAR (CLEAR)
[2021-08-05 19:06] LABS: BACTERIA,URINE Few /HPF (None Seen); RBC,URINE None Seen /HPF (0-5); SQUAMOUS EPITHELIAL CELL,UR FEW Squamous (<= Few); WBC,URINE 0-3 /HPF (0-5)
[2021-08-05 20:07] LABS: BACTERIAL VAGINOSIS DNA NEGATIVE (NEGATIVE); CANDIDA GLABRATA DNA NEGATIVE (NEGATIVE); CANDIDA GROUP DNA NEGATIVE (NEGATIVE); CANDIDA KRUSEI DNA NEGATIVE (NEGATIVE); TRICHOMONAS VAGINALIS DNA NEGATIVE (NEGATIVE)
== END 2021-08-05 23:59 | disposition home or self-care (01) ==
LOC: LAB.WC 10:30
PROVIDERS: ATTEND Nurse Practitioner Obstetrics & Gynecology
DX: N89.8 Other specified noninflammatory disorders of vagina (principal); R39.11 Hesitancy of micturition
CPT/HCPCS: 81001; 87086; 87661; 87801

== ENCOUNTER 2021-11-16 09:09 | Outpatient (CLI) | payer MEDICAID ==
--- NOTE | 2021-11-16 11:28 | Ultrasound Report ---
PROCEDURE: Abdomen Complete INDICATIONS: ABD PAIN TECHNIQUE: Real-time scanning was performed of the abdominal and retroperitoneal organs, with image documentatio n. COMPARISON: 11/24/2019 and 05/19/2018 FINDINGS: Liver: The liver demonstrates diffusely increased and coarsened echotexture without focal abnormalit ies which is consistent with chronic hepatocellular disease/hepatic steatosis. Gallbladder: Gallbladder is normal in appearance without gallstones, gallbladder wall thickening, or pericholecystic fluid. Negative sonographic Davidson's sign. Biliary ducts: Intrahepatic bile ducts are non-dilated. Extrahepatic bile duct caliber measures 3.4 mm. Normal is 6-7 mm or less in diameter, or 10 mm or less post-cholecystectomy. Pancreas: Visualized portions of the pancreas are sonographically normal. Spleen: Spleen is normal in size and homogeneous in echotexture. Kidneys: Kidneys are normal in size and echotexture. Right kidney measures 11.2 cm long; left kidne y measures 12.0 cm long. No hydronephrosis or nephrolithiasis. There is cortical scarring of the rig ht inferior renal pole. There is an echogenic focus in the inferior aspect of the right lower pole me asuring 8 x 6 x 6 mm in size. No definite vascularity visualized. Aorta: Visualized aorta is normal in caliber at less than 3 cm. Iliacs: Proximal common iliac arteries are normal in caliber at less than 2.5 cm. IVC: Intrahepatic inferior vena cava is patent. Miscellaneous: No free abdominal fluid. IMPRESSION: 1. Diffusely increased and coarsened hepatic echotexture which may represent sequela of hepatic steat osis versus chronic hepatocellular disease. Consider correlation with liver function tests. 2. A nonspecific 8 mm echogenic focus in the inferior pole of the right kidney. This may represent a nonshadowing stone versus fatty mass (angiomyolipoma favored but cannot completely excluded. Recommen d further characterization with contrast-enhanced CT or MRI of the abdomen using renal mass protocol. Reviewed by: Stanley Richards MD on 11/16/2021 11:27 AM PST Approved by: Stanley Richards MD on 11/16/2021 11:27 AM PST Station ID: [id number]
== END 2021-11-16 09:10 | disposition home or self-care (01) ==
LOC: DI 09:09
PROVIDERS: ATTEND Internal Medicine
DX: R10.9 Unspecified abdominal pain (principal); R93.2 Abnormal findings on diagnostic imaging of liver and biliary tract; R93.421 Abnormal radiologic findings on diagnostic imaging of right kidney

== ENCOUNTER 2021-11-16 09:10 | Outpatient (CLI) | payer MEDICAID ==
--- NOTE | 2021-11-16 14:05 | XRAY Report ---
PROCEDURE: Hips 2V BILAT INDICATIONS: BILAT HIP PAIN TECHNIQUE: AP pelvis. Lateral view(s) of the hip were acquired. COMPARISON: November 22, 2019 FINDINGS: BONES/JOINTS: No acute, displaced fracture. Sclerosis but no widening of the pubic symphysis. The sacroiliac joints are symmetric. The femoral he ads are normally seated within the acetabulum. SOFT TISSUES: No focal abnormality. An intrauterine device is seen in situ. IMPRESSION: 1.No acute osseous abnormality. Reviewed by: Rubén Gaffney MD on 11/16/2021 2:04 PM [facility] Approved by: Rubén Gaffney MD on 11/16/2021 2:04 PM [facility] Station ID: [id number]
== END 2021-11-16 09:11 | disposition home or self-care (01) ==
LOC: DI 09:10
PROVIDERS: ATTEND Internal Medicine
DX: M16.0 Bilateral primary osteoarthritis of hip (principal); R10.9 Unspecified abdominal pain; R93.2 Abnormal findings on diagnostic imaging of liver and biliary tract; R93.421 Abnormal radiologic findings on diagnostic imaging of right kidney

== ENCOUNTER 2021-12-24 08:00 | Outpatient (CLI) | payer MEDICAID ==
[2021-12-24 12:47] LABS: ESTIMATED AVERAGE GLUCOSE 131 mg/dL (70-100); HEMOGLOBIN A1c% 6.2 % (4.27-6.07)
== END 2021-12-24 08:01 | disposition home or self-care (01) ==
LOC: LAB 08:00
PROVIDERS: ATTEND Internal Medicine
DX: E74.9 Disorder of carbohydrate metabolism, unspecified (principal); Z79.899 Other long term (current) drug therapy
CPT/HCPCS: 36415; 83036

== ENCOUNTER 2022-01-05 12:58 | Outpatient (CLI) | payer MEDICAID | END 2022-01-05 12:59 | disposition home or self-care (01) | LOC: LAB 12:58 | PROVIDERS: ATTEND Psychiatry & Neurology Neurology | DX: G40.009 Localization-related (focal) (partial) idiopathic epilepsy and epileptic syndromes with seizures of localized onset, not intractable, without status epilepticus (principal) | CPT/HCPCS: 82306 ==

== ENCOUNTER 2022-01-06 11:40 | Outpatient (CLI) | payer MEDICAID | END 2022-01-06 11:41 | disposition home or self-care (01) | LOC: LAB 11:40 | PROVIDERS: ATTEND Psychiatry & Neurology Neurology | DX: G40.009 Localization-related (focal) (partial) idiopathic epilepsy and epileptic syndromes with seizures of localized onset, not intractable, without status epilepticus (principal) | CPT/HCPCS: 82306 ==

== ENCOUNTER 2022-01-25 11:19 | Outpatient (CLI) | payer MEDICAID ==
--- NOTE | 2022-01-25 17:45 | CT Report ---
PROCEDURE: Abdomen/Pelvis WO INDICATIONS: RIGHT KIDNEY STONE TECHNIQUE: Noncontrast 5 mm thick sections acquired from the diaphragms to the symphysis. 5 mm coronal and sagi ttal reformats were then performed. For radiation dose reduction, the following was used: automated exposure control, adjustment of mA and/or kV according to patient size. COMPARISON: None. FINDINGS: Image quality: Excellent. ABDOMEN: Lung bases: Lung bases are clear. Heart size is normal. Solid organs: Liver and spleen are normal in size. Gallbladder is unremarkable Pancreas is normal in contours. No adrenal nodules. Kidneys are normal in size, without hydronephrosis or nephrolithia sis. Bilateral ureters are normal in course and caliber. No ureteral stone identified. Peritoneum and bowel: Unenhanced bowel loops demonstrate normal wall thickness and caliber. No free fluid or air. Appendix is not definitively visualized; however, no secondary findings for acute joshua endicitis seen. Nodes and vessels: No retroperitoneal or mesenteric adenopathy by size criteria. Aorta and inferior vena cava are normal in caliber. Miscellaneous: No ventral hernias. PELVIS: Genitourinary: Bladder wall thickness is normal. Urinary bladder is decompressed. No evidence for u rinary bladder stone. There is an IUD visualized within the endometrium. There is a fluid attenuation 3.9 x 3.3 cm oval hypodensity in the region the right ovary/adnexa compatible with a cyst. Small rig ht fat-containing inguinal hernia. Miscellaneous: No pelvic adenopathy. Bones: No suspicious bony lesions. No acute vertebral body compression fractures. Multilevel lumba r spondylosis with moderate degenerative endplate changes at L5-S1 and disc bulge. Bilateral facet ar thropathy. There is mild spinal canal stenosis at this level. There is also mild spinal canal stenosi s at L4-5. IMPRESSION: 1. CT abdomen and pelvis without acute abnormalities. 2. No evidence for urolithiasis or obstructive uropathy. 3. Appendix is not definitively visualized. However, no secondary findings for acute appendicitis adriano ntified. 4. An intrauterine device is noted within the endometrium. 5. Multilevel spondylosis with mild spinal canal stenosis at L4-5 and L5-S1. Reviewed by: Stanley Richards MD on 01/25/2022 5:43 PM PDT Approved by: Stanley Richards MD on 01/25/2022 5:43 PM PDT Station ID: [id number]
== END 2022-01-25 11:20 | disposition home or self-care (01) ==
LOC: DI 11:19
PROVIDERS: ATTEND Urology
DX: N20.0 Calculus of kidney (principal); M47.816 Spondylosis without myelopathy or radiculopathy, lumbar region; M47.817 Spondylosis without myelopathy or radiculopathy, lumbosacral region; Z97.5 Presence of (intrauterine) contraceptive device

== ENCOUNTER 2022-04-30 12:51 | Outpatient (CLI) | payer MEDICAID ==
[2022-04-30 13:36] VITALS: BP 132/78
--- NOTE | 2022-04-30 13:36 | SLEEP CARE CONSULTATION ---
Information from patient questionnaire entered by Ramez Schaefer MA. I have reviewed and concur with the information entered by Ramez Schaefer MA. This document represents the service I personally performed and the decisions made by , Lizzy Moreno ARNP. History of Present Illness Service Date and Time: 04/30/2022 1251 Previous diagnosis: Mild, Obstructive Sleep Apnea-Hypopnea Syndrome AHI: 10.4 (in 2012) Reason for follow up: annual (LAST SEEN 12/2020, BRITTNEY, ORTIZ 01/29/2018, MACHINE ISSUES,) Equipment type: CPAP Equipment obtained from: [employer] (getting supplies as needed) Mask style: Full face Mask brand: [employer] ([employer]) Backup mask available: Yes (other mask) Prior sleep studies: Yes Year and Where: 2012 - [facility] Type of Sleep Study: Polysomnography HPI additional information: TORIE COOPER was diagnosed to have mild, AHI 10.4, obstructive sleep apnea- hypopnea syndrome and returned today for CPAP therapy annual follow-up. Sleep Study - Results Type of Sleep Study: Polysomnography Prior sleep studies: Yes Year and Where: 2012 - [facility] CPAP Compliance Data - Data Reviewed with Patient Average duration of nightly device use: 5 hours 8 minutes Compliance rate %: 53.3 (-03/28/22; 90 days; 74/90 days used) Current pressure setting (cmH2O): 11.0 Average residual AHI: 1.0 Average large leak: 16 mins 13 secs Compliance data discussion: Patient states her Dreamstation stopped working. Subjective Missed days of use due to: reports: other (machine stopped working) Patient concerns: reports: mask discomfort, dry mouth, nose, throat. denies: aerophagia, air blowing in eyes, mask leak noise, condensation in mask/hose, nasal congestion, epistaxis, other Observed to snore while using device: No Current pressure setting perceived as: comfortable On therapy, patient: reports: sleeping better, awakening more refreshed, being more awake and alert during the day, more rested overall. denies: drowsiness while driving Initial [place] Sleepiness Scale score: 16 (in 2010) Current [place] Sleepiness Scale score: 10 (04/30/2022) Allergies and Home Medications Home medication list reviewed: Yes Allergy and home medication list: Allergies sertraline [From Zoloft] Adverse Reaction (Verified 01/21/21 17:17) Respiratory Medications: Lynzess 71 mg Omeprazole 20 mg Review of Systems Review of systems same as previous: No (anemia; chronic stomach inflammation) Physical Exam Vital signs obtained and entered by: SOULEYMANE MCOGVERN Blood Pressure: 132/78 (left) Cuff size: wrist Heart Rate: 78 O2 Saturation: 97 (paper masl) Height: 5 ft 1.5 in Weight: 198 lb 8 oz (clothes) Body Mass Index: 36.8 BMI Classification: Obese Impression and Plan 1. Obstructive Sleep Apnea-Hypopnea Syndrome, mild, with fair treatment compliance and good apnea control before her machine stopped working. On CPAP therapy, the patient has better sleep quality and is more rested overall. Patient comes in today because her Brittney DreamStation stopped working about 3 months ago. She does have an old Brittney Remstar machine. She has not yet started using it because she just got supplies to be able to use the machine again. I helped her to some more what she could but I informed her that this machine is also one that could be on the recall. The patients Dreamstation CPAP is on the Brittney recall and of reasonable use. In addition, it was giving error messages about power and stopped turning on, a sign of malfunction. Thus, the CPAP will be updated. The new CPAPs also have a better humidity system which could assist control of patients dryness symptoms. A DWO prescription will be made. Compliance guidelines for new device and follow up discussed. Patient's apnea severity and rationale for treatment to reduce apnea, improve sleep quality and reduce cardiovascular and cerebrovascular events was reviewed. I also reviewed the benefit of consistent device use of CPAP for hypertension, diabetes, depression and anxiety. * Continue auto CPAP pressure at 11 cmH2O * Update machine * Update supplies as needed * Notify me if snoring with mask or feeling that the pressure is too much or too little * Call this office if any problems using CPAP * Return for follow up once month after obtaining new device, or sooner if concerns arise Counseling Topics: Spare mask, Weight loss health impact Visit Type: In Office Time Spent with Patient (minutes): 23 Provider Statement: I spent 100% of the Face to Face Visit with the patient with greater than 50% spent counseling the patient and coordination of care.
== END 2022-04-30 12:52 | disposition home or self-care (01) ==
LOC: SC 12:51
PROVIDERS: ATTEND Nurse Practitioner Family
DX: G47.33 Obstructive sleep apnea (adult) (pediatric) (principal); E66.9 Obesity, unspecified; Z68.36 Body mass index [BMI] 36.0-36.9, adult
CPT/HCPCS: 99212; 99213

== ENCOUNTER 2022-07-14 07:58 | Outpatient (CLI) | payer MEDICAID ==
--- NOTE | 2022-07-15 13:44 | Ultrasound Report ---
PROCEDURE: Pelvic w/Transvaginal INDICATIONS: OVARIAN CYST TECHNIQUE: Real-time scanning was performed of the pelvic organs, with image documentation. Additional endovagi nal scanning was necessary due to incomplete visualization of the adnexal and endometrial structures by transabdominal scanning. COMPARISON: CT abdomen and pelvis 01/25/2022 FINDINGS: Uterus: Uterus is anteverted and mildly enlarged in size at 10.2 x 6.4 x 6.6 cm. The myometrium is heterogeneous. The endometrium measures 10 mm in combined thickness. IUD is present. Ovaries: The right ovary measures 2.6 x 1.6 x 1.7 cm, with a calculated ovarian volume of 3.7 cc. T he left ovary measures 2.6 x 1.1 x 1.4 cm, with a calculated ovarian volume of 2.1 cc. Exophytic foci of decreased echogenicity are present within the right ovary the largest measuring 4.6 x 3.0 x 4.0 c m. Less than 12 follicles can be seen in each ovary. This is similar in size compared to prior CT ex am. No adnexal masses are seen. Other: No pathologic free abdominal or pelvic fluid. IMPRESSION: Right ovarian cyst with the largest similar in size compared to prior exam. 6 month ultrasound follow -up is recommended. Reviewed by: Rhina Figueredo MD on 07/15/2022 1:43 PM PDT Approved by: Rhina Figueredo MD on 07/15/2022 1:43 PM PDT Station ID: [id number]
== END 2022-07-14 07:59 | disposition home or self-care (01) ==
LOC: DI 07:58
PROVIDERS: ATTEND Obstetrics & Gynecology
DX: N83.291 Other ovarian cyst, right side (principal)

== ENCOUNTER 2022-07-23 16:58 | Outpatient (CLI) | payer MEDICAID | END 2022-07-23 16:59 | disposition home or self-care (01) | LOC: LAB 16:58 | PROVIDERS: ATTEND Obstetrics & Gynecology | DX: N83.291 Other ovarian cyst, right side (principal) | CPT/HCPCS: 36415; 86304 ==

== ENCOUNTER 2022-07-27 14:41 | Outpatient (CLI) | payer MEDICAID | END 2022-07-27 23:59 | disposition critical access hospital (66) | LOC: EMS 14:41 | DX: H57.12 Ocular pain, left eye (principal) | CPT/HCPCS: A0425; A0429; A0999 ==

== ENCOUNTER 2022-07-27 15:03 | Emergency (ER) | payer MEDICAID ==
[~2022-07-27 15:03] MED LIST: PROPARACAINE 0.5% OPHTH DROPS 15 ML EACHEYE STA
--- NOTE | 2022-07-27 15:12 | ED Physician Documentation ---
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 The eye is inflamed but her vision is intact. Review of Systems Constitutional: reports: Reviewed and negative Eyes: reports: Reviewed and negative Ears: reports: Reviewed and negative PD PAST MEDICAL HISTORY - Past Medical History Cardiovascular: Hypertension, High cholesterol Respiratory: Sleep apnea, CPAP use Neuro: Seizure disorder Endocrine/Autoimmune: Type 2 diabetes GI: None, Chronic constipation, Hemorrhoids ON AWAKE COUNSELOR: None : None HEENT: None Psych: Depression, Anxiety, ADD/ADHD Musculoskeletal: Osteoarthritis Derm: Herpes zoster, Rosacea - Past Surgical History Past Surgical History: Yes General: Appendectomy, Colonoscopy Ortho: Carpal Tunnel surgery - Present Medications Home Medications: Ambulatory Orders Medication Instructions Recorded Confirmed Atomoxetine HCl [Strattera] 60 mg PO DAILY 04/06/13 05/12/22 PARoxetine [Paxil] 20 mg PO DAILY 04/06/13 05/12/22 lamoTRIgine [Lamictal Xr] 300 mg PO DAILY 04/06/13 05/12/22 lisinopriL [Lisinopril] 10 mg PO DAILY 02/21/15 05/12/22 Atorvastatin [Lipitor] 40 mg ORAL QPM 11/22/19 05/12/22 Linaclotide [Linzess] 1 tab PO UD 01/21/21 05/12/22 metFORMIN [Glucophage] 250 mg PO DAILY PM 08/19/21 05/12/22 Omeprazole 20 mg PO DAILY 05/12/22 05/12/22 - Allergies Allergies/Adverse Reactions: Allergies Allergy/AdvReac Type Severity Reaction Status Date / Time sertraline [From Zoloft] AdvReac Respiratory Verified 07/27/22 15:05 - Social History Does the pt smoke?: No Smoking Status: Never smoker Does the pt drink ETOH?: No Does the pt have substance abuse?: No - Immunizations Immunizations are current?: Yes - POLST Patient has POLST: No PD ED PE NORMAL - Vitals Vital signs reviewed: Yes - General General: Alert and oriented X 3, No acute distress - HEENT HEENT: PERRL, EOMI, Other (Mild chemical conjunctivitis of the left eye, pH is 6.5. No fluorescein uptake.) - Neck Neck: Supple, no meningeal sign, No bony TTP - Neuro Neuro: Alert and oriented X 3, Normal speech - Psych Psych: Normal mood, Normal affect Results - Vitals Vitals: Vital Signs - 24 hr 07/27/22 15:05 Temperature 36.5 C Heart Rate 88 Respiratory 16 Rate Blood Pressure 128/80 O2 Saturation 96 Oxygen O2 Source Room air PD MEDICAL DECISION MAKING - ED course ED course: The eyes were both numbed at her request with proparacaine and then flushed. It does not look like she has any injury on the Right but she wanted both irrigated and this was done without issue. Departure - Departure Disposition: 01 Home, Self Care Clinical Impression: Chemical conjunctivitis of left eye Condition: Good Record reviewed to determine appropriate education?: Yes Instructions: ED Chemical Conjunctivitis Follow-Up: Pramod Valencia MD [Provider Admit Priv/Credential] - Comments: If having persistent symptoms after tomorrow follow-up with the eye doctor listed on this form. Return for new or worsening symptoms.
[2022-07-27 15:13] VITALS: BP 128/80
== END 2022-07-27 15:13 | disposition home or self-care (01) ==
LOC: EDUNIT# → ED 15:03
DX: T49.0X1A Poisoning by local antifungal, anti-infective and anti-inflammatory drugs, accidental (unintentional), initial encounter (principal); H10.212 Acute toxic conjunctivitis, left eye; I10 Essential (primary) hypertension; G40.909 Epilepsy, unspecified, not intractable, without status epilepticus; E11.9 Type 2 diabetes mellitus without complications; Z79.84 Long term (current) use of oral hypoglycemic drugs; Z79.899 Other long term (current) drug therapy
CPT/HCPCS: 99282; J3490

== ENCOUNTER 2022-09-13 08:58 | Outpatient (CLI) | payer MEDICAID ==
--- NOTE | 2022-09-13 15:14 | XRAY Report ---
PROCEDURE: Lumbar Spine 2 View INDICATIONS: LOWER BACK PX TECHNIQUE: 2 views of the lumbar spine were acquired. COMPARISON: 2 views of the lumbar spine dated 02/19/2021 FINDINGS: Bones: 5 [id number] vertebrae are present. There is normal bony alignment. Mild compression de formity is present at the inferior L1 endplate, unchanged from the prior study. No new compression de formities. Intervertebral disc space narrowing and endplate sclerosis is present at L1-2 and L5-S1, a s before. Soft tissues: Overlying bowel gas pattern is normal. No suspicious soft tissue calcifications. IMPRESSION: Stable, mild degenerative change. Reviewed by: Lucrecia Valdovinos MD on 09/13/2022 3:13 PM PST Approved by: Lucrecia Valdovinos MD on 09/13/2022 3:13 PM PST Station ID: [id number]
== END 2022-09-13 08:59 | disposition home or self-care (01) ==
LOC: DI 08:58
PROVIDERS: ATTEND Internal Medicine
DX: M47.816 Spondylosis without myelopathy or radiculopathy, lumbar region (principal); M47.817 Spondylosis without myelopathy or radiculopathy, lumbosacral region

== ENCOUNTER 2022-10-15 12:47 | Outpatient (CLI) | payer MEDICAID ==
[2022-10-15 13:20] LABS: CALCIUM 9.4 mg/dL (8.5-10.3); CREATININE 0.7 mg/dL (0.4-1.0); POTASSIUM 4.1 mmol/L (3.5-5.0)
== END 2022-10-15 12:48 | disposition home or self-care (01) ==
LOC: LAB 12:47
PROVIDERS: ATTEND Internal Medicine
DX: E11.9 Type 2 diabetes mellitus without complications (principal)
CPT/HCPCS: 36415; 80048

== ENCOUNTER 2022-10-15 12:48 | Outpatient (CLI) | payer MEDICAID ==
[~2022-10-15 12:48] MED LIST changes: +GADOBUTROL 10 MMOL/10 ML VIAL ONE; -PROPARACAINE 0.5% OPHTH DROPS 15 ML EACHEYE STA
[2022-10-15] MEDS ORDERED: GADOBUTROL 10 MMOL/10 ML VIAL IVP ONE (15:04)
--- NOTE | 2022-10-15 21:31 | MRI Report ---
PROCEDURE: FOOT W/WO - RT INDICATIONS: SOFT TISSUE MASS FOOT CONTRAST: GADAVIST 9.5 ML TECHNIQUE: Noncontrast sagittal T1 spin echo and T2 fast spin echo with fat saturation, long-axis T1 spin echo a nd T2 fast spin echo with fat saturation; short-axis T1 spin echo, proton density fast spin echo, and T2 fast spin echo with fat saturation through the forefoot. Post-contrast short axis, long axis, an d sagittal T1 spin echo with fat saturation through the forefoot. COMPARISON: Bilateral foot radiograph dated 02/19/2021. FINDINGS: Image quality: Excellent. Bones and joints: . Fiducial marker is placed over dorsal aspect of forefoot at the level of third MT P joint. Osteoarthritic changes are noted in midfoot and forefoot most notably involving second and t hird TMT joints with joint space narrowing, subchondral sclerosis and mild edema as well as prominent dorsal marginal osteophyte formation and third TMT joint. No fracture or dislocation. No metatarsal stress fractures. No suspicious intraosseous lesions. No area of abnormal intraosseous enhancement. Soft tissues: T2 hyperintense signal between second and third metatarsal heads are seen with subtle c ontrast enhancement and measures up to 8 x 2 x 10 mm in size concerning for neuroma in this area. Thi s is best seen on series 10 image 16 and series 11 image 14. No other enhancing soft tissue mass is s een. The visualized plantar foot muscles demonstrate normal signal and bulk. Visualized flexor and e xtensor tendons appear intact, without tenosynovitis. The distal insertions of the peroneus brevis a nd longus tendons appear intact. The principal Lisfranc ligament appears intact. No soft tissue sukumar glion cysts or bursal fluid collections. Sagittal images demonstrate no evidence for plantar plate t ears. IMPRESSION: 1. Finding is concerning for 8 x 2 x 10 mm neuroma in soft tissue between second and third metatarsal heads. No other enhancing soft tissue mass is seen. 2. Mild to moderate midfoot and forefoot joint osteoarthritis most notably at second and third TMT cortez ints. No fracture or dislocation. No metatarsal stress fractures. No suspicious bony lesions. 3. Tendons and ligaments of midfoot and forefoot are grossly intact. Reviewed by: Gwyn Evans MD on 10/15/2022 9:30 PM PST Approved by: Gwyn Evans MD on 10/15/2022 9:30 PM PST Station ID: [id number]
== END 2022-10-15 12:49 | disposition home or self-care (01) ==
LOC: DI 12:48
PROVIDERS: ATTEND Podiatrist Foot & Ankle Surgery
DX: M19.071 Primary osteoarthritis, right ankle and foot (principal); M79.89 Other specified soft tissue disorders
CPT/HCPCS: 73720; A9585

== ENCOUNTER 2022-11-11 08:24 | Outpatient (CLI) | payer MEDICAID | END 2022-11-11 08:25 | disposition home or self-care (01) | LOC: LAB 08:24 | PROVIDERS: ATTEND Psychiatry & Neurology Neurology | DX: E55.9 Vitamin D deficiency, unspecified (principal) | CPT/HCPCS: 36415; 82306 ==

== ENCOUNTER 2022-11-18 08:24 | Outpatient (CLI) | payer MEDICAID | END 2022-11-18 08:25 | disposition home or self-care (01) | LOC: LAB 08:24 | PROVIDERS: ATTEND Psychiatry & Neurology Neurology | DX: G40.109 Localization-related (focal) (partial) symptomatic epilepsy and epileptic syndromes with simple partial seizures, not intractable, without status epilepticus (principal) | CPT/HCPCS: 36415; 80175 ==

== ENCOUNTER 2022-12-08 11:56 | Outpatient (CLI) | payer MEDICAID ==
--- NOTE | 2022-12-08 19:22 | XRAY Report ---
PROCEDURE: Hips 2V BILAT INDICATIONS: PAIN IN LEFT HIP TECHNIQUE: AP view the pelvis and lateral views of the right and left hips. COMPARISON: Hip radiographs 11/16/2021 FINDINGS: Bones: No acute fractures or dislocations. No suspicious bony lesions. The visualized pelvic ring appears intact. Mild degenerative changes changes are seen in the lower lumbar spine. Mild sclerosis is again seen surrounding the pubic symphysis. Soft tissues: No suspicious soft tissue calcifications or masses. Intrauterine device is seen proje cting over the pelvis. IMPRESSION: No acute osseous abnormality. If there is clinical concern or persistent symptoms, additional imaging such as repeat radiographs or advanced imaging (e.g. CT, MRI) may be helpful for further evaluation. Reviewed by: Samir Freitas MD on 12/08/2022 7:21 PM PST Approved by: Samir Freitas MD on 12/08/2022 7:21 PM PST Station ID: [id number]
== END 2022-12-08 11:57 | disposition home or self-care (01) ==
LOC: DI 11:56
PROVIDERS: ATTEND Physician Assistant Medical
DX: M25.552 Pain in left hip (principal)

== ENCOUNTER 2022-12-23 13:15 | Outpatient (CLI) | payer MEDICAID ==
[2022-12-23 17:40] LABS: BASOPHILS # (AUTO) 0.1 10^3/uL (0.0-0.1); BASOPHILS % (AUTO) 0.9 %; EOSINOPHILS # (AUTO) 0.2 10^3/uL (0.0-0.7); HCT - HEMATOCRIT 41.3 % (37.0-47.0); LYMPHOCYTES # (AUTO) 1.1 10^3/uL (1.5-3.5); LYMPHOCYTES % (AUTO) 15.5 %; MEAN CORPUSCULAR HEMOGLOBIN 29.5 pg (27.0-31.0); MEAN CORPUSCULAR HGB CONC 31.5 g/dL (32.0-36.0); MEAN CORPUSCULAR VOLUME 93.7 fL (81.0-99.0); MEAN PLATELET VOLUME 9.5 fL (7.9-10.8); MONOCYTES # (AUTO) 0.5 10^3/uL (0.0-1.0); MONOCYTES % (AUTO) 6.8 %; NEUTROPHILS # (AUTO) 5.1 10^3/uL (1.5-6.6); NEUTROPHILS % (AUTO) 73.5 %; PLT - PLATELET COUNT 274 10^3/uL (130-450); RED BLOOD COUNT 4.41 10^6/uL (4.20-5.40); RED CELL DISTRIBUTION WIDTH 12.7 % (12.0-15.0); WHITE BLOOD COUNT 6.9 x10^3/uL (4.8-10.8)
[2022-12-23 17:50] LABS: ALBUMIN/GLOBULIN RATIO 1.3 (1.0-2.2); BILIRUBIN,TOTAL 0.2 mg/dL (0.2-1.0); CALCIUM 9.2 mg/dL (8.5-10.3); CREATININE 0.7 mg/dL (0.4-1.0); POTASSIUM 4.2 mmol/L (3.5-5.0); TOTAL PROTEIN 7.1 g/dL (6.7-8.2)
== END 2022-12-23 13:30 | disposition home or self-care (01) ==
LOC: LAB.N 13:15
PROVIDERS: ATTEND Registered Nurse
DX: R10.9 Unspecified abdominal pain (principal); M25.552 Pain in left hip; Z20.822 Contact with and (suspected) exposure to COVID-19
CPT/HCPCS: 36415; 80053; 85025

== ENCOUNTER 2022-12-31 14:11 | Outpatient (CLI) | payer MEDICAID ==
--- NOTE | 2022-12-31 15:50 | XRAY Report ---
PROCEDURE: Knee 3 View RT INDICATIONS: PAIN IN RIGHT KNEE TECHNIQUE: 3 views of the right knee(s) were acquired. COMPARISON: None. FINDINGS: Bones: No fractures or dislocations. No suspicious bony lesions. No significant degenerative eagle ge is present. Soft tissues: No joint effusion. No suspicious soft tissue calcifications. IMPRESSION: Negative right knee. Reviewed by: Cristian Barros MD on 12/31/2022 3:49 PM PDT Approved by: Cristian Barros MD on 12/31/2022 3:49 PM PDT Station ID: [id number]
== END 2022-12-31 14:12 | disposition home or self-care (01) ==
LOC: DI 14:11
PROVIDERS: ATTEND Internal Medicine
DX: M25.561 Pain in right knee (principal)

== ENCOUNTER 2023-01-26 13:34 | Outpatient (CLI) | payer MEDICAID ==
--- NOTE | 2023-01-26 16:02 | Ultrasound Report ---
PROCEDURE: Pelvic w/Transvaginal INDICATIONS: OVARIAN CYST TECHNIQUE: Real-time scanning was performed of the pelvic organs, with image documentation. Additional endovagi nal scanning was necessary due to incomplete visualization of the adnexal and endometrial structures by transabdominal scanning. COMPARISON: Pelvic ultrasound 07/15/2022 FINDINGS: Uterus: Uterus is anteverted and enlarged in size at 10.7 x 5.9 x 6.2 cm. The myometrium is homogen eous. The endometrium measures 22.7 mm in combined thickness. IUD is present in appropriate positio n. Ovaries: The right ovary measures 6.4 x 3.5 x 3.6 cm, with a calculated ovarian volume of 42.2 cc. The left ovary measures 2.2 x 1.3 x 2 point cm, with a calculated ovarian volume of 3.2 cc. Largest r ight ovarian cyst is present measuring 4.4 x 3.2 x 3.4 cm. It is unchanged since prior exam. Addition al smaller cysts all simple appearing have developed since prior exam. Other: No pathologic free abd ominal or pelvic fluid. IMPRESSION: Stable prominent right ovarian cyst. New additional simple right ovarian cyst have developed since prior exam. Reviewed by: Rhina Figueredo MD on 01/26/2023 4:01 PM PDT Approved by: Rhina Figueredo MD on 01/26/2023 4:01 PM PDT Station ID: [id number]
== END 2023-01-26 13:35 | disposition home or self-care (01) ==
LOC: DI 13:34
PROVIDERS: ATTEND Obstetrics & Gynecology
DX: N83.291 Other ovarian cyst, right side (principal)

== ENCOUNTER 2023-01-27 12:11 | Emergency (ER) | payer MEDICAID ==
--- NOTE | 2023-01-27 12:46 | ED Physician Documentation ---
History of Present Illness - Stated complaint Stated Complaint: FEMALE - Chief complaint Chief Complaint: Abd Pain - Additonal information Additional information: 57-year-old female has past medical history Mo significant for diabetes, hyp ertension, arthritis, ADD, developmental delay and seizure disorder presents to the emergency department for evaluation of prolonged vaginal bleeding. Patient states that at 57 she continues to get regular menstrual cycles. She does have an IUD in place. She states her cycles typically last for 3 to 5 days with only 2 to 3 days of heavy bleeding. This particular cycle started on the of this month. Initially it was 3 days of light bleeding then 4 days of heavy bleeding and now 2 days of moderate bleeding. Patient states she is changing her pad 20 times a day in part because it is bloody. But she also states she is using tampons. Incidentally the patient is being followed by the [facility] [place] [place] clinic for recurrent iron deficiency. Her labs have not shown any anemia. She has been noted to have ongoing menstrual cycles. Most recently her FSH and LH were consistent with a premenopausal status. Patient is being followed and coordinated with gynecology. She did have an ultrasound completed yesterday that showed a very large dominant right ovarian cyst unchanged from previous Review of Systems Unable to obtain: Other (As reported in HPI. 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 : None HEENT: None Psych: Depression, Anxiety, ADD/ADHD Musculoskeletal: Osteoarthritis Derm: Herpes zoster, Rosacea - Past Surgical History Past Surgical History: Yes General: Appendectomy, Colonoscopy Ortho: Carpal Tunnel surgery - Present Medications Home Medications: Ambulatory Orders Medication Instructions Recorded Confirmed Atomoxetine HCl [Strattera] 60 mg PO DAILY 04/06/13 12/01/22 PARoxetine [Paxil] 20 mg PO DAILY 04/06/13 12/01/22 lamoTRIgine [Lamictal Xr] 300 mg PO DAILY 04/06/13 12/01/22 lisinopriL [Lisinopril] 10 mg PO DAILY 02/21/15 12/01/22 Atorvastatin [Lipitor] 40 mg ORAL QPM 11/22/19 12/01/22 Linaclotide [Linzess] 1 tab PO UD 01/21/21 12/01/22 metFORMIN [Glucophage] 500 mg PO DAILY PM 08/19/21 12/01/22 Omeprazole 20 mg PO DAILY 05/12/22 12/01/22 - Allergies Allergies/Adverse Reactions: Allergies Allergy/AdvReac Type Severity Reaction Status Date / Time sertraline [From Zoloft] AdvReac Respiratory Verified 01/27/23 12:18 - Social History Does the pt smoke?: No Smoking Status: Never smoker Does the pt drink ETOH?: No Does the pt have substance abuse?: No - Immunizations Immunizations are current?: Yes - POLST Patient has POLST: No PD ED PE NORMAL - General General: Alert and oriented X 3, No acute distress - Cardiac Cardiac: RRR, No murmur - Respiratory Respiratory: No respiratory distress, Clear bilaterally - Abdomen Abdomen: Normal bowel sounds, Soft, Non tender - Derm Derm: Normal color, Warm and dry - Extremities Extremities: No deformity - Neuro Neuro: Alert and oriented X 3, page technician 2-12 intact Eye Opening: Spontaneous Motor: Obeys Commands Verbal: Oriented GCS Score: 15 Results - Vitals Vitals: Vital Signs - 24 hr 01/27/23 12:19 Temperature 36.7 C Heart Rate 89 Respiratory 16 Rate Blood Pressure 107/63 O2 Saturation 99 Oxygen O2 Source Room air - Labs Labs: Laboratory Tests 01/27/23 01/27/23 01/27/23 12:46 12:46 12:46 WBC 5.4 RBC 3.93 L Hgb 11.8 L Hct 36.2 L MCV 92.1 MCH 30.0 MCHC 32.6 RDW 12.7 Plt Count 272 MPV 9.3 Neut # (Auto) 3.8 Lymph # (Auto) 1.0 L [place] # (Auto) 0.3 Eos # (Auto) 0.2 Baso # (Auto) 0.1 Absolute Nucleated RBC 0.00 Nucleated RBC % 0.0 Sodium 138 Potassium 4.2 Chloride 103 Carbon Dioxide 28 Anion Gap 7.0 BUN 23 H Creatinine 0.6 Estimated GFR (MDRD) 104 Glucose 128 H Calcium 9.2 Total Bilirubin 0.3 AST 20 ALT 26 Alkaline Phosphatase 54 Total Protein 6.8 Albumin 3.9 Globulin 2.9 Albumin/Globulin Ratio 1.3 Lipase 30 Serum HCG, Qual NEGATIVE PD Medical Decision Making - ED course Complexity details: reviewed results, re-evaluated patient, d/w patient, d/w cognos consultant (Rhiannon) ED course: 57-year-old female presents emergency department for evaluation of 9 to 10 days heavy vaginal bleeding. Patient reports that she has not yet entered menopause and continues to have regular monthly cycles though the cycle is gone longer than traditional. Here in the emergency department she is alert and well-appearing. Normotensive without tachycardia. I did obtain a CBC and electrolytes. Per my interpretation she has developed a mild anemia in comparison to a CBC completed about 1 month ago. Hemoglobin today now 11.8. No worrisome thrombocytopenia. Her electrolytes did not show any worrisome abnormalities. Coincidentally patient did have a pelvic ultrasound completed 01/26/2023 showed a stable prominent right ovarian cyst measuring 6 x 3 x 3 cm. Uterus was enlarged measuring 10 x 6 cm. Homogenous myometrium. 22.7 mm combined thickness. IUD was in appropriate position I did speak on the phone with Dr. Haylee Villasenor To discuss this case. It is interesting that the patient continues to have vaginal bleeding while an IUD in place but she has the ParaGard not Mirena. In addition at 57 we would have expected her to be entering menopause though her FH and LH completed within the last year did not indicate that she was at that stage yet. As such however given the heavy vaginal bleeding and thickened endometrium Has scheduled an appointment for the Patient to be seen tomorrow at 1:00 in the women's health clinic. I have communicated this with the patient and she is in agreement. At this time stable for discharge home. The usual emergent return precautions discussed Departure - Departure Disposition: 01 Home, Self Care Clinical Impression: Dysfunctional uterine bleeding Anemia Qualifiers: Anemia type: other cause Other causes of anemia: other cause, not classified Qualified Code(s): D64.89 - Other specified anemias Condition: Stable Record reviewed to determine appropriate education?: Yes Follow-Up: Haylee Clark DO [Provider Admit Priv/Credential] - Tomorrow (tomorrow at 1pm) Comments: Taylor holland came to the emergency department because you have been having heavy vaginal bleeding now for 9 to 10 days. You are beginning to develop an anemia. I did discuss this case with your retrofit installer and she has scheduled an appointment for you tomorrow in the women's health clinic at 1 PM. Please arrive at 1245. At that appointment she will discuss further evaluation and management of your bleeding.
[2023-01-27 12:51] LABS: BASOPHILS # (AUTO) 0.1 10^3/uL (0.0-0.1); BASOPHILS % (AUTO) 0.9 %; EOSINOPHILS # (AUTO) 0.2 10^3/uL (0.0-0.7); EOSINOPHILS % (AUTO) 3.7 %; HCT - HEMATOCRIT 36.2 % (37.0-47.0); HGB - HEMOGLOBIN 11.8 g/dL (12.0-16.0); LYMPHOCYTES % (AUTO) 19.3 %; MEAN CORPUSCULAR HGB CONC 32.6 g/dL (32.0-36.0); MEAN CORPUSCULAR VOLUME 92.1 fL (81.0-99.0); MEAN PLATELET VOLUME 9.3 fL (7.9-10.8); MONOCYTES # (AUTO) 0.3 10^3/uL (0.0-1.0); MONOCYTES % (AUTO) 5.9 %; NEUTROPHILS # (AUTO) 3.8 10^3/uL (1.5-6.6); PLT - PLATELET COUNT 272 10^3/uL (130-450); RED BLOOD COUNT 3.93 10^6/uL (4.20-5.40); RED CELL DISTRIBUTION WIDTH 12.7 % (12.0-15.0); WHITE BLOOD COUNT 5.4 x10^3/uL (4.8-10.8)
[2023-01-27 13:04] LABS: ALBUMIN 3.9 g/dL (3.2-5.5); ALBUMIN/GLOBULIN RATIO 1.3 (1.0-2.2); BILIRUBIN,TOTAL 0.3 mg/dL (0.2-1.0); CALCIUM 9.2 mg/dL (8.5-10.3); CREATININE 0.6 mg/dL (0.4-1.0); POTASSIUM 4.2 mmol/L (3.5-5.0); TOTAL PROTEIN 6.8 g/dL (6.7-8.2)
[2023-01-27 13:42] LABS: HCG,QUALITATIVE BLOOD NEGATIVE
[2023-01-27 14:25] VITALS: BP 106/55
== END 2023-01-27 14:26 | disposition home or self-care (01) ==
LOC: ED 12:11
DX: N93.8 Other specified abnormal uterine and vaginal bleeding (principal); D64.89 Other specified anemias; I10 Essential (primary) hypertension; E11.9 Type 2 diabetes mellitus without complications; Z79.84 Long term (current) use of oral hypoglycemic drugs
CPT/HCPCS: 36415; 80053; 83690; 84703; 85025; 99284

== ENCOUNTER 2023-01-28 14:05 | Outpatient (CLI) | payer MEDICAID ==
[2023-01-28 15:19] LABS: FOLLICLE STIMULATING HORMONE 10.83 mIU/mL
== END 2023-01-28 14:06 | disposition home or self-care (01) ==
LOC: LAB 14:05
PROVIDERS: ATTEND Obstetrics & Gynecology
DX: N92.4 Excessive bleeding in the premenopausal period (principal); N83.291 Other ovarian cyst, right side
CPT/HCPCS: 36415; 83001; 86304

== ENCOUNTER 2023-03-01 13:46 | Outpatient (CLI) | payer MEDICAID ==
--- NOTE | 2023-03-01 14:46 | XRAY Report ---
PROCEDURE: Knee 3 View LT INDICATIONS: KNEE PAIN TECHNIQUE: 3 views of the left knee(s) were acquired. COMPARISON: X-ray knee 02/12/2019 FINDINGS: Bones: No fractures or dislocations. No suspicious bony lesions. Minimal medial compartment narro wing, slightly progressive. No erosions or periarticular osteophytes. Soft tissues: No knee joint effusion. No suspicious soft tissue calcifications or masses. IMPRESSION: Slightly progressive appearance of minimal medial compartment narrowing suggestive early arthritic ch arnoldo. Reviewed by: Rhina Figueredo MD on 03/01/2023 2:45 PM PDT Approved by: Rhina Figueredo MD on 03/01/2023 2:45 PM PDT Station ID: [id number]
== END 2023-03-01 13:47 | disposition home or self-care (01) ==
LOC: DI 13:46
PROVIDERS: ATTEND Internal Medicine
DX: M25.562 Pain in left knee (principal)

== ENCOUNTER 2023-03-01 13:48 | Outpatient (CLI) | payer MEDICAID ==
[2023-03-01 16:10] LABS: RHEUMATOID FACTOR NEGATIVE (Negative)
[2023-03-01 21:25] LABS: ESTIMATED AVERAGE GLUCOSE 123 mg/dL (70-100); HEMOGLOBIN A1c% 5.9 % (4.27-6.07)
== END 2023-03-01 13:49 | disposition home or self-care (01) ==
LOC: LAB 13:48
PROVIDERS: ATTEND Internal Medicine
DX: E11.9 Type 2 diabetes mellitus without complications (principal); M12.89 Other specific arthropathies, not elsewhere classified, multiple sites; M25.50 Pain in unspecified joint; E55.9 Vitamin D deficiency, unspecified; Z79.899 Other long term (current) drug therapy
CPT/HCPCS: 36415; 83036; 85651; 86430

== ENCOUNTER 2023-03-10 13:32 | Outpatient (CLI) | payer MEDICAID | END 2023-03-10 13:33 | disposition home or self-care (01) | LOC: LAB 13:32 | PROVIDERS: ATTEND Obstetrics & Gynecology | DX: Z01.812 Encounter for preprocedural laboratory examination (principal); N92.4 Excessive bleeding in the premenopausal period; E11.9 Type 2 diabetes mellitus without complications; R05.9 Cough, unspecified; Z20.822 Contact with and (suspected) exposure to COVID-19 ==

== ENCOUNTER 2023-03-15 07:32 | Day surgery (SDC) | payer MEDICAID ==
[~2023-03-15 07:32] MED LIST changes: -GADOBUTROL 10 MMOL/10 ML VIAL ONE; +LEVONORGESTREL 20 MCG/24H IUD IY ONE; +PROPOFOL 500 MG/50 ML 0 MG/0 ML VIAL ONE
[2023-03-15] MEDS ORDERED: fentaNYL 100 MCG/2 ML VIAL ONE (07:41)
[2023-03-15] MEDS ORDERED: MIDAZOLAM 2 MG/2 ML VIAL ONE (07:41)
[2023-03-15 07:59] VITALS: BP 142/66
[2023-03-15 07:59] LABS: HCG UR QUAL NEGATIVE
[2023-03-15] MEDS ORDERED: LACTATED RINGERS 1,000 ML IV ONE (08:04)
--- NOTE | 2023-03-15 08:40 | ANESTHESIA ---
Pre-Anesthesia VS, & Labs - Diagnosis perimenopausal bleeding - Procedure myosure, hysteroscopy, d/c, IUD placement Vital Signs: Temp Pulse Resp BP Pulse Ox O2 Flow Rate 36.3 C L 88 16 142/66 H 98 03/15/23 07:54 03/15/23 07:54 03/15/23 07:54 03/15/23 07:54 03/15/23 07:54 Height: 5 ft 1 in Weight (kg): 96.8 kg Body Mass Index: 40.3 BMI Classification: Morbidly Obese - NPO >8 hours - Is Patient ?: No - Lab Results Current Lab Results: Laboratory Tests 03/15/23 08:03: POC Whole Bld Glucose 146 H Home Medications and Allergies Home Medications: Ambulatory Orders Cholecalciferol [Vitamin D3] 25 mcg PO DAILY 03/10/23 Ferrous Sulfate [Feosol] 325 mg PO DAILY 03/10/23 Atomoxetine HCl [Strattera] 60 mg PO DAILY 04/06/13 PARoxetine [Paxil] 20 mg PO DAILY 04/06/13 lamoTRIgine [Lamictal Xr] 300 mg PO DAILY 04/06/13 lisinopriL [Lisinopril] 10 mg PO DAILY 02/21/15 Atorvastatin [Lipitor] 40 mg ORAL QPM 11/22/19 Linaclotide [Linzess] 1 tab PO UD 01/21/21 metFORMIN [Glucophage] 500 mg PO DAILY PM 08/19/21 Omeprazole 20 mg PO DAILY 05/12/22 Multivit-Minerals/Folic Acid [Multivitamin Gummies] 200 mcg PO DAILY 03/02/23 Cholecalciferol [Vitamin D3] 25 mcg PO DAILY 03/10/23 Ferrous Sulfate [Feosol] 325 mg PO DAILY 03/10/23 Allergies/Adverse Reactions: Allergies Allergy/AdvReac Type Severity Reaction Status Date / Time sertraline [From Zoloft] AdvReac Respiratory Verified 01/27/23 12:18 Anes History & Medical History - Anesthetic History Anesthesia Complications: reports: No previous complications Family history of Anesthesia Complications: Denies Family history of Malignant Hyperthermia: Denies - Medical History Cardiovascular: reports: Hypertension, High cholesterol Pulmonary: reports: Sleep apnea, CPAP use, Other (Active URI: productive cough/muscle aches, congestion) Gastrointestinal: reports: GERD (w/c w omeprazole), Chronic constipation, Hemorrhoids Urinary: reports: None Neuro: reports: Seizure disorder Musculoskeletal: reports: Osteoarthritis Endocrine/Autoimmune: reports: Type 2 diabetes Blood Disorders: reports: None Skin: reports: Herpes zoster, Rosacea Smoking Status: Never smoker - Surgical History General: reports: Appendectomy, Colonoscopy Orthopedic: reports: Carpal Tunnel surgery Exam General: Alert, Oriented x3, Cooperative Dental: WNL Mouth Opening: Greater than 4 Fingerbreadths Neck Mobility: Normal Mallampati classification: II Thyromental Distance: 4-6 cm Cardiovascular: Regular rate Mental/Cognitive Status: Alert/Oriented X3 Plan Anesthesia Type: General Consent for Procedure(s) Verified and Reviewed: Yes Code Status: Attempt Resuscitation ASA classification: 2-Mild systemic disease Is this case an emergency?: No
--- NOTE | 2023-03-15 08:43 | CONSULTATION NOTE ---
Consultation Report: Pt presents for surgery today w active URI, postponed elective procedure, discussed w surgeon and patient, both agree w plan.
== END 2023-03-15 07:33 | disposition home or self-care (01) ==
LOC: SDS 07:32
PROVIDERS: ATTEND Obstetrics & Gynecology
DX: N92.4 Excessive bleeding in the premenopausal period (principal); Z53.09 Procedure and treatment not carried out because of other contraindication
CPT/HCPCS: 81025; J7120

== ENCOUNTER 2023-04-19 07:34 | Day surgery (SDC) | payer MEDICAID ==
[2023-04-19] MEDS ORDERED: LACTATED RINGERS 1,000 ML IV ONE ×2 (07:38→09:30)
[2023-04-19 07:57] LABS: HCG UR QUAL NEGATIVE
--- NOTE | 2023-04-19 08:14 | ANESTHESIA ---
Pre-Anesthesia VS, & Labs - Diagnosis post menopausal bleeding - Procedure hysterscopy, D&C, myosure Vital Signs: Temp Pulse Resp BP Pulse Ox O2 Flow Rate 36.7 C 94 16 118/78 97 0 04/19/23 07:43 04/19/23 07:43 04/19/23 07:43 04/19/23 07:43 04/19/23 07:43 04/19/23 07:43 Height: 5 ft 1 in Weight (kg): 98.2 kg Body Mass Index: 40.8 BMI Classification: Morbidly Obese - NPO >8 hours - Is Patient ?: No - Lab Results Current Lab Results: Laboratory Tests 04/19/23 08:02: POC Whole Bld Glucose 153 H Home Medications and Allergies Atomoxetine HCl [Strattera] 60 mg PO DAILY 04/06/13 PARoxetine [Paxil] 20 mg PO DAILY 04/06/13 lamoTRIgine [Lamictal Xr] 300 mg PO DAILY 04/06/13 lisinopriL [Lisinopril] 10 mg PO DAILY 02/21/15 Atorvastatin [Lipitor] 40 mg ORAL QPM 11/22/19 Linaclotide [Linzess] 1 tab PO UD 01/21/21 metFORMIN [Glucophage] 500 mg PO DAILY PM 08/19/21 Omeprazole 20 mg PO DAILY 05/12/22 Multivit-Minerals/Folic Acid [Multivitamin Gummies] 200 mcg PO DAILY 03/02/23 Cholecalciferol [Vitamin D3] 25 mcg PO DAILY 03/10/23 Ferrous Sulfate [Feosol] 325 mg PO DAILY 03/10/23 Allergies/Adverse Reactions: Allergies Allergy/AdvReac Type Severity Reaction Status Date / Time sertraline [From Zoloft] AdvReac Respiratory Verified 01/27/23 12:18 Anes History & Medical History - Anesthetic History Anesthesia Complications: reports: No previous complications - Medical History Cardiovascular: reports: Hypertension, High cholesterol Pulmonary: reports: Sleep apnea, CPAP use, Other Gastrointestinal: reports: GERD, Chronic constipation, Hemorrhoids Urinary: reports: Incontinence Neuro: reports: Seizure disorder Musculoskeletal: reports: Osteoarthritis, Chronic back pain Endocrine/Autoimmune: reports: Type 2 diabetes Blood Disorders: reports: None Skin: reports: Herpes zoster, Rosacea Smoking Status: Never smoker Psychosocial: reports: Depression, Anxiety History of Cancer?: No - Surgical History General: reports: Appendectomy, Colonoscopy, EGD Orthopedic: reports: Carpal Tunnel surgery Exam General: Alert, Oriented x3, Cooperative, No acute distress Dental: WNL Mouth Openin Fingerbreadth Neck Mobility: Normal Mallampati classification: III Thyromental Distance: 4-6 cm Mental/Cognitive Status: Alert/Oriented X3, Normal for patient Plan Anesthesia Type: General Consent for Procedure(s) Verified and Reviewed: Yes Code Status: Attempt Resuscitation ASA classification: 3-Severe systemic disease Is this case an emergency?: No
[2023-04-19] MEDS ORDERED: MORPHINE 2 MG/ML CARPUJECT IVP PRN (08:15)
[2023-04-19] MEDS ORDERED: ONDANSETRON 4 MG/2 ML VIAL IVP PRN (08:15)
[2023-04-19] MEDS ORDERED: ATROPINE ABBOJECT 1 MG/10 ML SYRINGE IVP PRN (08:15)
[2023-04-19] MEDS ORDERED: HYDROmorphone 0.5 MG/0.5 ML SYRINGE IVP PRN (08:15)
[2023-04-19] MEDS ORDERED: NALOXONE 0.4 MG/ML VIAL IVP PRN (08:15)
[2023-04-19] MEDS ORDERED: fentaNYL 100 MCG/2 ML VIAL IVP PRN (08:15)
[2023-04-19] MEDS ORDERED: SILVER NITRATE APPLICATOR TOP ONE (08:16)
[2023-04-19] MEDS ORDERED: LEVONORGESTREL 20 MCG/24H IUD IY ONE ×3 (08:17→09:10)
[2023-04-19] MEDS ORDERED: diphenhydrAMINE INJ 50 MG/ML VIAL ONE (08:22)
[2023-04-19] MEDS ORDERED: DEXAMETHASONE 4 MG/ML VIAL ONE (08:22)
[2023-04-19] MEDS ORDERED: KETOROLAC 30 MG/ML VIAL ONE (08:22)
[2023-04-19] MEDS ORDERED: PROPOFOL 200 MG/20 ML VIAL IVP ONE ×2 (08:23→09:26)
[2023-04-19] MEDS ORDERED: ROCURONIUM 50 MG/5 ML VIAL ONE (08:23)
[2023-04-19] MEDS ORDERED: LIDOCAINE-PF 2% 10 ML AMP SUBQ ONE (08:23)
[2023-04-19] MEDS ORDERED: MIDAZOLAM 2 MG/2 ML VIAL ONE (08:24)
--- NOTE | 2023-04-19 08:24 | HISTORY & PHYSICAL EXAMINATION ---
HPI - Admitted From Admitted from: OR - History Obtained From History obtained from: Patient - History of Present Illness HPI Comment/Other: 57yo perimenopausal female presents for scheduled D&C, hysteroscopy, Mirena IUD placement. Paragard removed last visit 01/28/23 with persistent vaginal bleeding. FSH 10, not yet postmenopausal. CA-125 ordered for persistent 4.4cm right ovarian cyst and was 34. US 01/26/23 with thickened endometrium 22.7mm. Endometrial biopsy collected last visit shows proliferative phase endometrium, negative for hyperplasia or carcinoma. She agrees to planned procedures and Mirena IUS to keep endometrium thin. We plan to monitor right ovarian cyst for now as it has been stable since 07/2022. 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: None : positive: Incontinence HEENT: positive: Chronic vision loss Psych: positive: Depression, Anxiety, ADD/ADHD Musculoskeletal: positive: Osteoarthritis, Chronic back pain Derm: positive: Herpes zoster, Rosacea MRSA Hx?: No - Past Surgical History General: positive: Appendectomy, Colonoscopy, EGD Ortho: positive: Carpal Tunnel surgery Social & Family Hx - Social History Does the pt smoke?: No Smoking Status: Never smoker Does the pt drink ETOH?: No Does the pt have substance abuse?: No - POLST Patient has POLST: No Meds/Allgy - Home Medications Home Medications: Ambulatory Orders Medication Instructions Recorded Confirmed Atomoxetine HCl [Strattera] 60 mg PO DAILY 04/06/13 04/19/23 PARoxetine [Paxil] 20 mg PO DAILY 04/06/13 04/19/23 lamoTRIgine [Lamictal Xr] 300 mg PO DAILY 04/06/13 04/19/23 lisinopriL [Lisinopril] 10 mg PO DAILY 02/21/15 04/19/23 Atorvastatin [Lipitor] 40 mg ORAL QPM 11/22/19 04/19/23 Linaclotide [Linzess] 1 tab PO UD 01/21/21 04/19/23 metFORMIN [Glucophage] 500 mg PO DAILY PM 08/19/21 04/19/23 Omeprazole 20 mg PO DAILY 05/12/22 04/19/23 Multivit-Minerals/Folic Acid 200 mcg PO DAILY 03/02/23 04/19/23 [Multivitamin Gummies] Cholecalciferol [Vitamin D3] 25 mcg PO DAILY 03/10/23 04/19/23 Ferrous Sulfate [Feosol] 325 mg PO DAILY 03/10/23 04/19/23 - Allergies Allergies/Adverse Reactions: Allergies Allergy/AdvReac Type Severity Reaction Status Date / Time sertraline [From Zoloft] AdvReac Respiratory Verified 01/27/23 12:18 Exam - Vital Signs Reviewed Vital Signs: Yes Vital Signs: Vital Signs x48h Temp Pulse Resp BP Pulse Ox O2 Flow Rate 04/19/23 07:43 98.1 F 94 16 118/78 97 0 - Physical Exam General Appearance: positive: No acute distress Eyes Bilateral: positive: EOMI Respiratory: positive: No respiratory distress Skin: positive: Color nml Results - Lab Results Other Lab Results: Lab Results x24hrs 04/19/23 04/19/23 Range/Units 08:02 07:45 POC Whole Bld Glucose 153 H (70 - 100) mg/dL Urine HCG, Qual NEGATIVE Impression/Plan - Problem List Problem List: Menorrhagia, perimenopausal 57yo with perimenopausal HMB - Reviewed benign endometrial biopsy, CA-125. FSH not postmenopausal range. - Proceed with D&C, hysteroscopy and Mirena IUS placement - Follow up post-op - Consider follow up US to evaluate endometrium and right ovarian cyst - Pre-operative instructions reviewed, may continue medications Risks of surgery were discussed including but not limited to risk of bleeding, infection, injury to nearby organs requiring repair (bladder, ureters, bowel, vasculature), deep venous thrombosis or . Risks of blood transfusion were also discussed including but not limited to transfusion reaction or transmission of HIV, Hepatitis B or C.
[2023-04-19] MEDS ORDERED: LACTATED RINGERS 1,000 ML IV SCH (09:00)
[2023-04-19] MEDS ORDERED: SUGAMMADEX 200 MG/2 ML VIAL IVP ONE (09:21)
--- NOTE | 2023-04-19 09:28 | OPERATIVE REPORT ---
Operative Report - General Procedure Date: 04/19/23 Planned Procedure: Dilation, curettage, hysteroscopy, Mirena IUS placement Pre-Op Diagnosis: Heavy perimenopausal bleeding Procedure Performed: Dilation, curettage, hysteroscopy with polypectomy, Mirena IUS placement Post Op Diagnosis: Endometrial polyps - Procedure Note Primary Surgeon: Haylee Clark DO Anesthesia Provider: Akiko Hsu CRNA Pathology: Endometrial polyp, curettings Estimated Blood Loss (mL): 20 Indications: Heavy perimenopausal bleeding Findings: Posterior wall endometrial polyps x2 Complications: None - Other Other Information/Narrative: Transferred to OR. Anesthesia obtained without difficulty. Placed in dorsal lithotomy position in Juarez type stirrups. Prepped and draped in sterile fashion. Bladder emptied and catheter removed. Time out performed. Speculum placed. Anterior lip of cervix grasped with single tooth tenaculum. Sounded to 10cm. Cervix dilated to accomodate Myosure hysteroscope. Posterior wall polyps noted x2. Lite removal device used to resect polyps and obtain curettings. Hemostasis. No other lesions noted. Hysteroscope removed. Mirena IUS placed. Strings trimmed. Tenaculum removed. Hemostasis. Speculum removed. Patient transported to PACU in stable condition. Counts correct x2. Fluid deficit 245cc NS.
[2023-04-19 11:04] VITALS: BP 139/84
--- NOTE | 2023-04-19 13:01 | ANESTHESIA POST OP EVALUATION ---
Anesthesia Post Eval - Post Anesthesia Eval Vitals: Last Vital Signs Temp 36.4 C L 04/19/23 10:50 Pulse 82 04/19/23 10:50 Resp 16 04/19/23 10:50 BP 139/84 H 04/19/23 10:50 Pulse Ox 94 04/19/23 10:50 O2 Flow Rate 0 04/19/23 07:43 CV Function Including HR & BP: Stable Pain Control: Satisfactory Nausea & Vomiting: Negative Mental Status: Baseline Respiratory Status: Airway Patent Hydration Status: Satisfactory Anesthesia Complications: None
== END 2023-04-19 07:35 | disposition home or self-care (01) ==
LOC: SDS 07:34
PROVIDERS: ATTEND Obstetrics & Gynecology
PROC: 0UDB8ZX Extraction of Endometrium, Via Natural or Artificial Opening Endoscopic, Diagnostic (ICD-10-PCS; principal; 2023-04-19 08:30)
PROC: 0UB98ZZ Excision of Uterus, Via Natural or Artificial Opening Endoscopic (ICD-10-PCS; 2023-04-19 08:30)
DX: N92.4 Excessive bleeding in the premenopausal period (principal); I10 Essential (primary) hypertension; G47.30 Sleep apnea, unspecified; E11.9 Type 2 diabetes mellitus without complications; N84.0 Polyp of corpus uteri; E66.01 Morbid (severe) obesity due to excess calories; Z68.41 Body mass index [BMI] 40.0-44.9, adult; Z32.02 Encounter for pregnancy test, result negative
CPT/HCPCS: 58300; 58558; 81025; J1200; J7120; J7298

== ENCOUNTER 2023-05-24 15:14 | Outpatient (CLI) | payer MEDICAID ==
--- NOTE | 2023-05-25 13:43 | Ultrasound Report ---
PROCEDURE: Pelvic w/Transvaginal INDICATIONS: MENORRHAGIA TECHNIQUE: Real-time scanning was performed of the pelvic organs, with image documentation. Additional endovagi nal scanning was necessary due to incomplete visualization of the adnexal and endometrial structures by transabdominal scanning. COMPARISON: None. FINDINGS: Uterus: Uterus is Antivert and normal in size at 10.6 x 6.1 x 6.7 cm. The myometrium is homogeneous . The endometrium measures 13.6 mm in combined thickness. Intrauterine device is suboptimally visua lized but appears to be grossly positioned centrally within the endometrial complex. Ovaries: The right ovary measures 3.9 x 3.0 x 2.8 cm, with a calculated ovarian volume of 17.1 cc. The left ovary measures 1.8 x 2.1 x 2.1 cm, with a calculated ovarian volume of 4.2 cc. Bilateral sim ple ovarian cysts measuring up to 2.5 cm on the right and 3.3 cm on the left.. Less than 12 follicle s can be seen in each ovary. No adnexal masses are seen. Other: No pathologic free abdominal or pelvic fluid. IMPRESSION: 1. Endometrial complex measuring 13.6 cm which would be considered abnormally thickened in a postmeno pausal female and close clinical correlation and follow-up is recommended. 2. Suboptimal visualization of the intrauterine device which appears grossly centrally positioned wit hin the endometrial complex. 3. Simple bilateral ovarian cysts, largest of which is on the left measuring up to 3.3 cm. Reviewed by: CHARLENE Salinas on 05/25/2023 1:42 PM PDT Approved by: Gwyn Hahn MD on 05/25/2023 1:42 PM PDT Station ID: [id number]
== END 2023-05-24 15:15 | disposition home or self-care (01) ==
LOC: DI 15:14
PROVIDERS: ATTEND Obstetrics & Gynecology
DX: N92.4 Excessive bleeding in the premenopausal period (principal); N83.292 Other ovarian cyst, left side; N83.291 Other ovarian cyst, right side; Z97.5 Presence of (intrauterine) contraceptive device

== ENCOUNTER 2023-05-24 15:14 | Outpatient (CLI) | payer MEDICAID ==
--- NOTE | 2023-05-25 09:27 | Mammography Report ---
BILATERAL DIGITAL SCREENING MAMMOGRAM 3D/2D: 05/24/2023 CLINICAL: Routine screening. Comparison is made to exams dated: 03/09/2022 mammogram, 05/22/2020 mammogram, 11/22/2018 mammogram, and 11/21/2017 mammogram - [facility]. Both breasts are heterogeneously dense, which may obscure small masses (category c / 51-75% glandular tissue). There are benign calcifications in both breasts. No significant masses, calcifications, or other findings are seen in either breast. There has been no significant interval change. IMPRESSION: BENIGN There is no mammographic evidence of malignancy. A 1 year screening mammogram is recommended. Based on the Tyrer Cuzick model (a risk assessment model) the patients lifetime risk is 19.9% and he r 10 year risk is 6.3%. According to the ACR, ACS, and NCCN guidelines, an annual breast MRI exam mele ng with mammogram is recommended if the patients lifetime risk is 20% or greater. This exam was interpreted at Station ID: [id number]. NOTE: For mammograms, a report in lay terms will be sent to the patient. Approximately 15% of breast malignancies will not be visualized mammographically. In the management of a palpable breast mass, a negative mammogram must not discourage biopsy of a clinically suspicious lesion. Electronically Signed By: Home nelson/delores:05/25/2023 07:57:15 ACR BI-RADS Category 2: Benign Finding(s) 3342F PARENCHYMAL PATTERN: (D) - The breast(s) demonstrate(s) heterogeneously dense fibroglandular yaya hood. BI-RADS CATEGORY: (2) - 2 Mammogram [id number] 1 year screening LATERALITY: (B)
== END 2023-05-24 15:15 | disposition home or self-care (01) ==
LOC: DI 15:14
PROVIDERS: ATTEND Obstetrics & Gynecology
DX: Z12.31 Encounter for screening mammogram for malignant neoplasm of breast (principal)

== ENCOUNTER 2023-08-17 12:55 | Outpatient (CLI) | payer MEDICAID ==
--- NOTE | 2023-08-17 13:36 | Sleep Patient Instructions ---
Sleep Center Visit Summary - Patient Visit Information Reason for Visit: Annual Visit - Patient Instructions Additional Instructions: You will continue with CPAP therapy with pressure set at 11 cmH2O. A supply prescription will be updated with your DME. I will try to order a new sleep study to re-verify your sleep apnea since your last sleep study was over 10 years ago. We encourage you to continue to try to lose weight. Please follow up with the sleep care office after sleep study. - Clinic Information Contact: [facility] [address] [place] [id number] [email or web address] T: [phone]
--- NOTE | 2023-08-17 13:39 | SLEEP CARE CONSULTATION ---
Information from patient questionnaire entered by Radha Serrano. I have reviewed and concur with the information entered by Radha Serrano. This document represents the service I personally performed and the decisions made by me, Lizzy Moreno ARNP. History of Present Illness Service Date and Time: 08/17/2023 1255 Previous diagnosis: Mild, Obstructive Sleep Apnea-Hypopnea Syndrome AHI: 10.4 (in 2012) Reason for follow up: annual (LAST SEEN 08/2022) Equipment type: CPAP (DREAMSTATION 2) Equipment obtained from: [facility] (getting supplies as needed) Mask style: Full face Backup mask available: Yes Last cushion change: 2.5-3 months Prior sleep studies: Yes Year and Where: 2012 - [facility] Type of Sleep Study: Polysomnography HPI additional information: TORIE COOPER was diagnosed to have mild, AHI 10.4, obstructive sleep apnea- hypopnea syndrome and returned today for CPAP therapy annual follow-up. Sleep Study - Results Type of Sleep Study: Polysomnography Prior sleep studies: Yes Year and Where: 2013 - [facility] CPAP Compliance Data - Data Reviewed with Patient Average duration of nightly device use: 4 hours 23 minutes Compliance rate %: 45.8 (313/365 days used ) Current pressure setting (cmH2O): 11 Average residual AHI: 1.2 Central apnea: 0.1 Obstructive apnea: 0.1 Hypopnea: 1 Average large leak: 30 secs Subjective Missed days of use due to: reports: other (will fall asleep without mask when watching TV; does not sleep for long time, goes to sleep late) Patient concerns: reports: dry mouth, nose, throat (occasional). denies: aerophagia, mask discomfort, air blowing in eyes, mask leak noise, condensation in mask/hose, nasal congestion, epistaxis Observed to snore while using device: No Current pressure setting perceived as: comfortable On therapy, patient: reports: sleeping better, awakening more refreshed, being more awake and alert during the day, more rested overall. denies: drowsiness while driving Initial Austin Sleepiness Scale score: 16 (in 2010) Current Austin Sleepiness Scale score: 13 (08/17/23) Allergies and Home Medications Known drug allergies: Yes (sertraline) Drug allergies reviewed: Yes Home medication list reviewed: Yes (Omeprazole) Allergy and home medication list: Allergies sertraline [From Zoloft] Adverse Reaction (Verified 08/16/23 14:44) Respiratory Review of Systems Review of systems same as previous: No (CHRONIC STOMACH INFLAMATION) Physical Exam Vital signs obtained and entered by: RADHA Medrano MA Blood Pressure: 140/84 (LEFT ARM) Cuff size: regular Heart Rate: 95 O2 Saturation: 98 Height: 5 ft 1 in Weight: 216 lb Body Mass Index: 40.8 BMI Classification: Morbidly Obese Impression and Plan 1. Obstructive Sleep Apnea-Hypopnea Syndrome, mild, with fair treatment compliance and good apnea control. On CPAP therapy, the patient has better sleep quality and is more rested overall. She has not had a sleep study since 2012. She has gained some weight in last 5 years. I think we can see if we can re- verify her diagnosis and severity since her sleep study is over 10 years old. She voiced understanding and agreement with plan. Patient has significant improvement of their sleep apnea and is satisfied with current CPAP therapy. P eder's apnea severity and rationale for treatment to reduce apnea, improve sleep quality and reduce cardiovascular and cerebrovascular events was reviewed. I also reviewed the benefit of consistent device use of CPAP for depression. 2. Obesity, unspecified. Currently patients BMI is 40.8. Obesity increases the risk of apnea, CPAP pressure requirements and overall health risks especially cardiovascular and diabetes. Thus patient is advised to lose weight. * Continue auto CPAP pressure at 11 cmH2O * Polysomnography * Update supply prescription * Notify me if snoring with mask or feeling that the pressure is too much or too little * Attempt to lose weight * Call this office if any problems using CPAP * Return for follow up in 1 year, or sooner if concerns arise Counseling Topics: Spare mask, Weight loss health impact Prescriptions: Device supplies Plan: re-verifying PSG Visit Type: In Office Time Spent with Patient (minutes): 29 Provider Statement: I spent 100% of the Face to Face Visit with the patient with greater than 50% spent counseling the patient and coordination of care.
[2023-08-17 13:58] VITALS: BP 140/84; O2SAT 98
== END 2023-08-17 12:56 | disposition home or self-care (01) ==
LOC: SC 12:55
PROVIDERS: ATTEND Nurse Practitioner Family
DX: G47.33 Obstructive sleep apnea (adult) (pediatric) (principal); E66.01 Morbid (severe) obesity due to excess calories; Z68.41 Body mass index [BMI] 40.0-44.9, adult
CPT/HCPCS: 99212; 99213

== ENCOUNTER 2023-08-23 19:40 | Outpatient (CLI) | payer MEDICAID | END 2023-08-23 19:41 | disposition home or self-care (01) | LOC: SC 19:40 | PROVIDERS: ATTEND Nurse Practitioner Family | DX: G47.33 Obstructive sleep apnea (adult) (pediatric) (principal); G47.61 Periodic limb movement disorder; F32.A Depression, unspecified | CPT/HCPCS: 95810 ==

== ENCOUNTER 2023-09-01 14:35 | Outpatient (CLI) | payer MEDICAID ==
--- NOTE | 2023-09-01 15:20 | Sleep Patient Instructions ---
Sleep Center Visit Summary - Patient Visit Information Reason for Visit: Sleep study follow-up - Patient Instructions Additional Instructions: You will be continued with CPAP therapy with pressure set at 11 cmH2O. A copy of sleep study was faxed to your doctor. We encourage you to continue to try to lose weight. Please follow up with the sleep care office in 1 year. - Clinic Information Contact: [facility] [address] [place] [address] [email or web address] T: [phone]
--- NOTE | 2023-09-01 15:24 | SLEEP CARE CONSULTATION ---
Information from patient questionnaire entered by Radha Serrano. I have reviewed and concur with the information entered by Radha Serrano. This document represents the service I personally performed and the decisions made by , Lizzy Moreno ARNP. History of Present Illness Service Date and Time: 09/01/2023 1435 Initial [place] Sleepiness Scale score: 16 (in 2010) Current [place] Sleepiness Scale score: 15 (09/01/23) Additional HPI information: TORIE COOPER returns for follow up and results of the recently performed polysomnography. The sleep study showed moderate obstructive sleep apnea with an average AHI of 21.7 and jas oxygen saturation of 85%. I explained the pathophysiology behind obstructive sleep apnea. We then spent quite a bit of time discussing different treatment options. For mild obstructive sleep apnea, surgery and oral appliance are alternatives to nasal CPAP therapy but in moderate or severe cases, nasal CPAP is the most effective and reliable treatment. I reviewed the impact of weight changes on sleep apnea and strongly recommended losing weight. Patient will continue with the nasal CPAP therapy set at 11 cmH20. Patient does not drink alcohol. Patient was cautioned about risks of drowsy driving until sleepiness symptoms resolve. Sleep Study - Results Type of Sleep Study: Polysomnography (COMPLETED 08/23/23) Prior sleep studies: Yes Year and Where: 2012 - [facility] Sleep Polysomnography/Home Sleep Study results: IMPRESSION: The quality of the study is good. The patient had poor sleep efficiency due to sleep onset insomnia. The sleep architecture was abnormal for sleep fragmentation and lack of REM and slow wave sleep (N3). Respiratory monitoring showed moderate obstructive sleep apnea-hypopnea (AHI = 21.7) associated with frequent arousals, oxyhemoglobin desaturation and mild hypoxia (jas oxygen saturation of 85%). The respiratory events occurred mainly during supine sleep (supine AHI = 24.6; non-supine = 10.00). Snore was light to moderate in intensity. There was mild periodic leg movement of sleep not contributing to the sleep fragmentation. Cardiac rhythm was normal sinus rhythm without significant arrhythmia. Abnormal behavior while awake but none (parasomnia) observed during sleep. Allergies and Home Medications Known drug allergies: Yes (as listed) Drug allergies reviewed: Yes Home medication list reviewed: Yes (no changes) Allergy and home medication list: Allergies sertraline [From Zoloft] Adverse Reaction (Verified 09/01/23 14:02) Respiratory Review of Systems Review of systems same as previous: Yes (NO CHANGE) Physical Exam Vital signs obtained and entered by: RADHA Medrano MA Blood Pressure: 114/76 (LEFT ARM) Cuff size: regular Heart Rate: 98 O2 Saturation: 98 Height: 5 ft 1 in Weight: 223 lb Body Mass Index: 42.1 BMI Classification: Morbidly Obese Impression and Plan 1. Obstructive Sleep Apnea-Hypopnea Syndrome, moderate, with lowest oxygen saturation of 85%. She is currently on a CPAP. Positive pressure therapy can benefit history of seizures and depression. The patient will be continued on nasal autoCPAP therapy with pressure set at 11 cmH2O. On CPAP therapy, the patient has better sleep quality and is more rested overall. Patient's apnea severity and rationale for treatment to reduce apnea, improve sleep quality and reduce cardiovascular and cerebrovascular events was reviewed. We will followup with her next year. 2. Obesity, unspecified. Currently patients BMI is 42.1. Obesity increases the risk of apnea, CPAP pressure requirements and overall health risks especially cardiovascular and diabetes. Thus patient is advised to lose weight. * Continue auto CPAP pressure at 11 cmH2O * Notify me if snoring with mask or feeling that the pressure is too much or too little * Attempt to lose weight * Call this office if any problems using CPAP * Return for follow up in 1 year, or sooner if concerns arise Counseling Topics: Weight loss health impact Follow up with Sleep Care in: 1 year Visit Type: In Office Time Spent with Patient (minutes): 23 Provider Statement: I spent 100% of the Face to Face Visit with the patient with greater than 50% spent counseling the patient and coordination of care.
[2023-09-01 15:27] VITALS: BP 114/76; O2SAT 98
== END 2023-09-01 14:36 | disposition home or self-care (01) ==
LOC: SC 14:35
PROVIDERS: ATTEND Nurse Practitioner Family
DX: G47.33 Obstructive sleep apnea (adult) (pediatric) (principal); E66.01 Morbid (severe) obesity due to excess calories; Z68.41 Body mass index [BMI] 40.0-44.9, adult
CPT/HCPCS: 99212; 99213

== ENCOUNTER 2023-09-02 08:39 | Outpatient (CLI) | payer MEDICAID | END 2023-09-02 08:40 | disposition home or self-care (01) | LOC: LAB.N 08:39 | PROVIDERS: ATTEND Psychiatry & Neurology Neurology | DX: G40.109 Localization-related (focal) (partial) symptomatic epilepsy and epileptic syndromes with simple partial seizures, not intractable, without status epilepticus (principal) | CPT/HCPCS: 36415; 80175 ==

== ENCOUNTER 2023-09-08 12:20 | Outpatient (CLI) | payer MEDICAID ==
--- NOTE | 2023-09-08 19:58 | XRAY Report ---
PROCEDURE: Shoulder 3 View LT INDICATIONS: SHOULDER PAIN TECHNIQUE: 3 views of the shoulder were acquired. COMPARISON: None FINDINGS: Bones: No fractures or dislocations. No suspicious bony lesions. Visualized ribs appear intact. Soft tissues: No suspicious soft tissue calcifications. IMPRESSION: Unremarkable shoulder radiographs Reviewed by: Cristobal David MD on 09/08/2023 6:57 PM [place] Approved by: Cristobal David MD on 09/08/2023 6:57 PM [place] Station ID: [id number]
== END 2023-09-08 12:21 | disposition home or self-care (01) ==
LOC: DI 12:20
PROVIDERS: ATTEND Internal Medicine
DX: M25.512 Pain in left shoulder (principal)

== ENCOUNTER 2023-10-15 13:48 | Emergency (ER) | payer MEDICAID ==
[2023-10-15 13:55] VITALS: BP 125/62; O2SAT 99
--- NOTE | 2023-10-15 14:52 | ED Physician Documentation ---
History of Present Illness - Stated complaint Stated Complaint: LT HAND JAMMED - Chief complaint Chief Complaint: Ext Problem - History obtained from History obtained from: Patient - History of Present Illness Timing: How many weeks ago (1) Pain level max: 3 Pain level now: 3 - Additonal information Additional information: 58-year-old female presents to the emergency department stating that she injured her left thumb a week ago. She states that she has had continued swelling to the DIP joint as well as pain to the thumb. Worse with movement, better with rest. No numbness or tingling. No skin changes. Review of Systems Constitutional: denies: Fever, Chills GI: denies: Vomiting Neurologic: denies: Head injury PD PAST MEDICAL HISTORY - Past Medical History Past Medical History: Yes Cardiovascular: Hypertension, High cholesterol Respiratory: Sleep apnea, CPAP use, Other Neuro: Seizure disorder Endocrine/Autoimmune: Type 2 diabetes GI: GERD, Chronic constipation, Hemorrhoids [employer]: None : Incontinence HEENT: Chronic vision loss Psych: Depression, Anxiety, ADD/ADHD Musculoskeletal: Osteoarthritis, Chronic back pain Derm: Herpes zoster, Rosacea - Past Surgical History Past Surgical History: Yes General: Appendectomy, Colonoscopy, EGD Ortho: Carpal Tunnel surgery - Present Medications Home Medications: Ambulatory Orders Medication Instructions Recorded Confirmed Atomoxetine HCl [Strattera] 60 mg PO DAILY 04/06/13 10/05/23 PARoxetine [Paxil] 20 mg PO DAILY 04/06/13 10/05/23 lamoTRIgine [Lamictal Xr] 300 mg PO DAILY 04/06/13 10/05/23 lisinopriL [Lisinopril] 10 mg PO DAILY 02/21/15 10/05/23 Atorvastatin [Lipitor] 40 mg ORAL QPM 11/22/19 10/05/23 Linaclotide [Linzess] 1 tab PO UD 01/21/21 10/05/23 metFORMIN [Glucophage] 500 mg PO DAILY PM 08/19/21 10/05/23 Omeprazole 20 mg PO DAILY 05/12/22 10/05/23 Multivit-Minerals/Folic Acid 200 mcg PO DAILY 03/02/23 10/05/23 [Multivitamin Gummies] Cholecalciferol [Vitamin D3] 25 mcg PO DAILY 03/10/23 10/05/23 Guanfacine HCl [Intuniv] 0.5 mg PO DAILY 10/05/23 10/05/23 - Allergies Allergies/Adverse Reactions: Allergies Allergy/AdvReac Type Severity Reaction Status Date / Time sertraline [From Zoloft] AdvReac Respiratory Verified 10/15/23 13:50 - Social History Does the pt smoke?: No Smoking Status: Never smoker Does the pt drink ETOH?: No Does the pt have substance abuse?: No - Immunizations Immunizations are current?: Yes - POLST Patient has POLST: No PD ED PE NORMAL - Vitals Vital signs reviewed: Yes - General General: Alert and oriented X 3 - Derm Derm: Warm and dry - Extremities Extremities: Other (Left thumb - Mild tenderness over the distal aspect of the left thumb small subungual hematoma. No significant swelling. Full range of motion of the IP joints and MCP joint without pain. No bony tenderness along the proximal phalanx of the thumb. No Tenderness over the scaphoid.) - Neuro Neuro: Alert and oriented X 3 Results - Vitals Vitals: Vital Signs - 24 hr 10/15/23 13:50 Temperature 36.8 C Heart Rate 99 Respiratory 16 Rate Blood Pressure 125/62 O2 Saturation 99 Oxygen O2 Source Room air - Rads (name of study) Left thumb x-ray Relevant Findings:: Final report received, See rad report PD Medical Decision Making - ED course Complexity details: reviewed results, re-evaluated patient, considered differential, d/w patient ED course: 58-year-old female status post a left thumb injury 1 week ago. Possible small avulsion fracture on xray, but no tenderness at that area. suspect chronic. Has a small subungual hematoma that does not need evacuation or drainage. Will continue supportive care and have her follow-up with her PCP as needed for further care. No evidence of occult scaphoid injury. No snuffbox tenderness. Neurovascular intact. Patient counseled regarding signs and symptoms for which I believe and urgent re-evaluation would be necessary. Patient with good understanding of and agreement to plan and is comfortable going home at this time This document was made in part using voice recognition software. While efforts are made to proofread this document, sound alike and grammatical errors may occur. Departure - Departure Disposition: 01 Home, Self Care Clinical Impression: Contusion of left thumb Qualifiers: Encounter type: initial encounter Damage to nail status: without damage Qualified Code(s): S60.012A - Contusion of left thumb without damage to nail, initial encounter Subungual hematoma of fingernail Qualifiers: Encounter type: initial encounter Qualified Code(s): S60.10XA - Contusion of unspecified finger with damage to nail, initial encounter Condition: Good Instructions: ED Contusion Hand, ED Hematoma Subungual Follow-Up: Your,doctor in 1 week [Other] Comments: There may be a very small avulsion fracture on your x-ray, but this may be a chronic finding as well, given your exam I suspect this is more chronic. You can follow-up with your doctor for further care. This should improve over the next week. The blood underneath the fingernail will resolve on its own. You can use Motrin or Tylenol as needed for any pain. Forms: PCP List Discharge Date/Time: 10/15/23 15:20
--- NOTE | 2023-10-15 15:11 | XRAY Report ---
PROCEDURE: Finger(s) LT INDICATIONS: L thumb pain s/p injury x 1 week TECHNIQUE: AP hand, 2 views of the thumb finger(s) acquired. COMPARISON: None. FINDINGS: Bones: Tiny osseous fragment along the dorsal radial aspect of the interphalangeal joint of the thum b may represent avulsion fracture versus remote injury. Soft tissues: No suspicious soft tissue calcifications or masses. IMPRESSION: Tiny osseous fragment at the interphalangeal joint of the thumb may reflect chronic finding versus sm all avulsion fracture. Reviewed by: Dav Fields MD on 10/15/2023 2:10 PM [place] Approved by: Dav Fields MD on 10/15/2023 2:10 PM [facility] Station ID: [id number]
== END 2023-10-15 15:20 | disposition home or self-care (01) ==
LOC: ED 13:48
DX: S60.112A Contusion of left thumb with damage to nail, initial encounter (principal); W23.1XXA Caught, crushed, jammed, or pinched between stationary objects, initial encounter; Y92.810 Car as the place of occurrence of the external cause
CPT/HCPCS: 99283

== ENCOUNTER 2023-11-21 01:37 | Emergency (ER) | payer MEDICAID ==
--- NOTE | 2023-11-21 02:05 | ED Physician Documentation ---
PD HPI CHEST PAIN - Stated complaint Stated Complaint: CHEST PX - Chief complaint Chief Complaint: Cardiac - History obtained from History obtained from: Patient - Additional information Additional information: HPI from patient. Patient c/o midline chest pain radiating to left parasternal region. Onset of pain was 01:15 this morning while at home at rest but seated and awake. Denies nausea, diaphoresis. She says she has had many such previous episodes over the past several years, with testing that did not yield diagnostic results. She describes tests that sounds like they have included outpatient cardiac/telemetric home monitoring x weeks, as well as stress tests. Her chest pain has resolved prior to this ED evaluation without specific intervention. She does not offer other c/o to me on my HPI, but ED RN tells me that during triage the patient expressed vague suicidal thoughts which also were of vague time frame and unclear severity of intent. On my HPI, she does not mention this, but on ROS, I mention what had transpired conversationally during triage process. She tells me she has had dark thoughts but she denies having specific thoughts of killing herself and she denies having specific plan and denies intent. Review of Systems Constitutional: reports: Reviewed and negative Cardiac: reports: Reviewed and negative Respiratory: reports: Reviewed and negative GI: reports: Reviewed and negative Neurologic: reports: Reviewed and negative Psychiatric: reports: Depressed, Insomnia. 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 : Incontinence HEENT: Chronic vision loss Psych: Depression, Anxiety, ADD/ADHD Musculoskeletal: Osteoarthritis, Chronic back pain Derm: Herpes zoster, Rosacea - Past Surgical History Past Surgical History: Yes General: Appendectomy, Colonoscopy, EGD Ortho: Carpal Tunnel surgery - Present Medications Home Medications: Ambulatory Orders Medication Instructions Recorded Confirmed Atomoxetine HCl [Strattera] 60 mg PO DAILY 04/06/13 11/21/23 PARoxetine [Paxil] 20 mg PO DAILY 04/06/13 11/21/23 lamoTRIgine [Lamictal Xr] 300 mg PO DAILY 04/06/13 11/21/23 lisinopriL [Lisinopril] 10 mg PO DAILY 02/21/15 11/21/23 Atorvastatin [Lipitor] 40 mg ORAL QPM 11/22/19 11/21/23 Linaclotide [Linzess] 1 tab PO UD 01/21/21 11/21/23 metFORMIN [Glucophage] 500 mg PO DAILY PM 08/19/21 11/21/23 Multivit-Minerals/Folic Acid 200 mcg PO DAILY 03/02/23 11/21/23 [Multivitamin Gummies] - Allergies Allergies/Adverse Reactions: Allergies Allergy/AdvReac Type Severity Reaction Status Date / Time sertraline [From Zoloft] AdvReac Respiratory Verified 11/21/23 01:47 - Social History Does the pt smoke?: No Smoking Status: Never smoker Does the pt drink ETOH?: No Does the pt have substance abuse?: No - Immunizations Immunizations are current?: Yes - POLST Patient has POLST: No PD ED PE NORMAL - Vitals Vital signs reviewed: Yes - General General: Alert and oriented X 3, No acute distress, Well developed/nourished - HEENT HEENT: PERRL, EOMI - Neck Neck: Supple, no meningeal sign - Cardiac Cardiac: RRR, No murmur, No gallop, No rub - Respiratory Respiratory: No respiratory distress, Clear bilaterally - Abdomen Abdomen: Soft, Non tender, Non distended - Back Back: No CVA TTP - Derm Derm: Normal color, Warm and dry - Extremities Extremities: No edema Results - Vitals Vitals: Oxygen O2 Source Room air - EKG (time done) No standard instances EKG releavant findings:: EKG personally interpreted by author of this note. Relevant findings are: Rate: Rate (enter#) (84) Rhythm: NSR [place]: Normal Intervals: Normal [place] QRS: Normal Ischemia: Normal ST segments Compare to prior EKG: Unchanged from prior EKG (07/10/22) - Labs Labs: Laboratory Tests 11/21/23 11/21/23 11/21/23 02:30 02:37 02:37 WBC 6.3 RBC 4.64 Hgb 13.4 Hct 42.7 MCV 92.0 MCH 28.9 MCHC 31.4 L RDW 13.1 Plt Count 292 MPV 9.5 Neut # (Auto) 4.2 Lymph # (Auto) 1.4 L Cloud # (Auto) 0.4 Eos # (Auto) 0.2 Baso # (Auto) 0.0 Absolute Nucleated RBC 0.00 Nucleated RBC % 0.0 Sodium 137 Potassium 3.8 Chloride 104 Carbon Dioxide 27 Anion Gap 6.0 BUN 23 H Creatinine 0.8 Estimated GFR (MDRD) 74 L Glucose 131 H Calcium 9.4 Magnesium 2.0 Total Bilirubin 0.2 AST 19 ALT 22 Alkaline Phosphatase 72 Total Creatine Kinase 125 Troponin I High Sens 2.3 Total Protein 7.0 Albumin 4.3 Globulin 2.7 Albumin/Globulin Ratio 1.6 Lipase 19 TSH 3.43 Urine Color YELLOW Urine Clarity CLEAR Urine pH 6.0 Ur Specific [place] <=1.005 Urine Protein NEGATIVE Urine Glucose (UA) NEGATIVE Urine Ketones NEGATIVE Urine Occult Blood LARGE H Urine Nitrite NEGATIVE Urine Bilirubin NEGATIVE Urine Urobilinogen 0.2 (NORMAL) Ur Leukocyte Esterase NEGATIVE Urine RBC 6-10 H Urine WBC 0-3 Ur Squamous Epith Cells FEW Squamous Urine Bacteria None Seen Ur Microscopic Review INDICATED Urine Culture Comments NOT INDICATED Salicylates < 1.5 Urine Opiates Screen NEGATIVE Ur Buprenorphine Scrn NEGATIVE Ur Oxycodone Screen NEGATIVE Urine Methadone Screen NEGATIVE Acetaminophen < 0.1 Ur Barbiturates Screen NEGATIVE Ur Tricyclics Screen NEGATIVE Ur Phencyclidine Scrn NEGATIVE Ur Amphetamine Screen NEGATIVE U Methamphetamines Scrn NEGATIVE U Benzodiazepines Scrn NEGATIVE Urine Cocaine Screen NEGATIVE U Cannabinoids Screen NEGATIVE Ur Drug Screen Comment CUTOFF CONC BELOW: Ethyl Alcohol < 10.0 - Rads (name of study) chest xray Relevant Findings:: Prelim report reviewed, See rad report PD Medical Decision Making - ED course Complexity details: reviewed results, re-evaluated patient, considered differential, d/w patient ED course: No concerning nor diagnostic findings on tonight's tests including EKG, CXR, blood tests (including hs-cTn). Etiology of her chest pain is not apparent at this time. Results reviewed with patient, return precautions discussed. I advised her to follow up with PCP, next available appointment, even if feeling well. As for the dark thoughts she tells the ED RN (triage) and myself that she is having, I had a long discussion with her about these thoughts , both at initial evaluation (H+P) as well as on reevaluation once the tests were resulted. I offered her range of services including inpatient psychiatric services (would require transfer to another facility but would be appropriate and necessary if she does not feel safe going back home), telepsychiatric services (e-psych consult) to help patient determine best/safest course of action including inpatient and outpatient treatment as well as possible medication adjustment and/or introduction, and SW consult (not necessarily available QD at [facility]). After long discussion, patient says she feels safe going home and will contact PCP as soon as they are available to arrange for follow up appointment to discuss not only reevaluation of her chest discomfort , but also her depression. I encouraged her to return at any time she wishes to be reevaluated, particularly if she is having worsening physical symptoms (chest pain, dyspnea, etc) as well as worsening psychiatric symptoms (depression, anxiety, insomnia) Departure - Departure Disposition: 01 Home, Self Care Clinical Impression: Chest pain Qualifiers: Chest pain type: unspecified Qualified Code(s): R07.9 - Chest pain, unspecified Condition: Good Instructions: ED Chest Pain Atypical Unkn Cause Follow-Up: Leonela Hameed MD [Primary Care Provider] - Comments: There were no concerning nor diagnostic findings on tonight's tests, including the EKG, chest x-ray, and blood tests. The cause of your chest discomfort is not apparent at this time, but these test results are reassuring and further testing, if necessary, can be undertaken at the discretion of your primary care provider in the outpatient setting. As we discussed, if your symptoms worsen in any way, or if you develop new/concerning signs/symptoms (such as fever, shortness of breath, severe chest pain) you should return to the emergency department for reevaluation. In regards to feeling depressed and overwhelmed, you should also mention this when you make the appointment to see your primary care provider for follow-up (that way, they can set aside an appropriate amount of time to reassess both your chest pain and the feelings of depression and being overwhelmed). Discharge Date/Time: 11/21/23 04:59
[2023-11-21 03:29] LABS: BASOPHILS % (AUTO) 0.6 %; EOSINOPHILS # (AUTO) 0.2 10^3/uL (0.0-0.7); EOSINOPHILS % (AUTO) 3.8 %; HCT - HEMATOCRIT 42.7 % (37.0-47.0); HGB - HEMOGLOBIN 13.4 g/dL (12.0-16.0); LYMPHOCYTES # (AUTO) 1.4 10^3/uL (1.5-3.5); LYMPHOCYTES % (AUTO) 22.4 %; MEAN CORPUSCULAR HEMOGLOBIN 28.9 pg (27.0-31.0); MEAN CORPUSCULAR HGB CONC 31.4 g/dL (32.0-36.0); MEAN PLATELET VOLUME 9.5 fL (7.9-10.8); MONOCYTES # (AUTO) 0.4 10^3/uL (0.0-1.0); NEUTROPHILS # (AUTO) 4.2 10^3/uL (1.5-6.6); PLT - PLATELET COUNT 292 10^3/uL (130-450); RED BLOOD COUNT 4.64 10^6/uL (4.20-5.40); RED CELL DISTRIBUTION WIDTH 13.1 % (12.0-15.0); WHITE BLOOD COUNT 6.3 x10^3/uL (4.8-10.8)
[2023-11-21 03:32] LABS: BILIRUBIN,URINE NEGATIVE (NEGATIVE); GLUCOSE, URINE (UA) NEGATIVE (NEGATIVE); KETONES,URINE (UA) NEGATIVE (NEGATIVE); LEUKOCYTE ESTERASE, URINE NEGATIVE (NEGATIVE); NITRITE,URINE NEGATIVE (NEGATIVE); OCCULT BLOOD,URINE LARGE (NEGATIVE); PROTEIN,URINE NEGATIVE (NEGATIVE); UROBILINOGEN,URINE 0.2 (NORMAL) E.U./dL (NORMAL)
[2023-11-21 03:35] LABS: CLARITY,URINE CLEAR (CLEAR)
[2023-11-21 03:45] LABS: AMPHETAMINE SCREEN,URINE NEGATIVE (NEGATIVE); BACTERIA,URINE None Seen /HPF (None Seen); BARBITURATE SCREEN,UR NEGATIVE (NEGATIVE); BENZODIAZEPINES SCREEN, URINE NEGATIVE (NEGATIVE); BUPRENORPHINE SCREEN, URINE NEGATIVE (NEGATIVE); COCAINE SCREEN URINE NEGATIVE (NEGATIVE); METHADONE SCREEN, URINE NEGATIVE (NEGATIVE); METHAMPHETAMINES SCREEN, URINE NEGATIVE (NEGATIVE); OPIATE SCREEN, URINE NEGATIVE (NEGATIVE); OXYCODONE SCREEN, URINE NEGATIVE (NEGATIVE); SQUAMOUS EPITHELIAL CELL,UR FEW Squamous (<= Few); THC CANNABINOID SCREEN, URINE NEGATIVE (NEGATIVE); TRICYCLIC ANTIDEPRESSANT,URINE NEGATIVE (NEGATIVE); WBC,URINE 0-3 /HPF (0-5)
[2023-11-21 03:57] LABS: ACETAMINOPHEN < 0.1 ug/mL; ALBUMIN 4.3 g/dL (3.2-5.5); ALBUMIN/GLOBULIN RATIO 1.6 (1.0-2.2); ALKALINE PHOSPHATASE 72 IU/L (42-121); ALT ALANINE AMINOTRANSFERASE 22 IU/L (10-60); AST ASPARTATE AMINOTRANSFERASE 19 IU/L (10-42); BILIRUBIN,TOTAL 0.2 mg/dL (0.2-1.0); BUN - BLOOD UREA NITROGEN 23 mg/dL (6-20); CALCIUM 9.4 mg/dL (8.5-10.3); CARBON DIOXIDE - CO2 27 mmol/L (21-32); CHLORIDE 104 mmol/L (101-111); CK- CREATINE KINASE 125 IU/L (30-223); CREATININE 0.8 mg/dL (0.6-1.3); ETOH - ETHANOL < 10.0 mg/dL; GFR - MDRD 74 (>89); GLUCOSE 131 mg/dL (74-104); LIPASE 19 U/L (11-82); POTASSIUM 3.8 mmol/L (3.5-4.5); SALICYLATE < 1.5 mg/dL; SODIUM 137 mmol/L (135-145)
[2023-11-21 04:10] LABS: THYROID STIMULATING HORMONE 3.43 uIU/mL (0.34-5.60); TROPONIN I HIGH SENSITIVITY 2.3 ng/L (2.3-14.8)
[2023-11-21 04:58] VITALS: BP 132/77; O2SAT 97
--- NOTE | 2023-11-21 08:01 | XRAY Report ---
PROCEDURE: Chest 2V INDICATIONS: chest pain TECHNIQUE: 2 views of the chest were acquired. COMPARISON: None. FINDINGS: Surgical changes and devices: None. Lungs and pleura: No pleural effusions or pneumothorax. Lungs are clear. Mediastinum: Mediastinal contours appear normal. Heart size is normal. Bones and chest wall: No suspicious bony lesions. Overlying soft tissues appear unremarkable. Mild multilevel degenerative changes of the spine. IMPRESSION: No acute cardiopulmonary process. Findings are concordant with preliminary interpretation provided by [facility]. Reviewed by: Cordell Christiansen MD on 11/21/2023 8:00 AM PST Approved by: Cordell Christiansen MD on 11/21/2023 8:00 AM PST Station ID: [id number]
== END 2023-11-21 04:59 | disposition home or self-care (01) ==
LOC: ED 01:37
DX: R07.9 Chest pain, unspecified (principal); I10 Essential (primary) hypertension; E78.00 Pure hypercholesterolemia, unspecified; G47.30 Sleep apnea, unspecified; E11.9 Type 2 diabetes mellitus without complications; Z79.84 Long term (current) use of oral hypoglycemic drugs; Z79.899 Other long term (current) drug therapy
CPT/HCPCS: 36415; 80053; 80143; 80179; 80306; 81001; 81003; 82077; 82550; 83690; 83735; 84443; 84484; 85025; 87086; 93005; 99283; 99284

== ENCOUNTER 2023-11-28 12:33 | Outpatient (CLI) | payer MEDICAID ==
--- NOTE | 2023-11-28 19:34 | Ultrasound Report ---
PROCEDURE: Duplex Ext Veins Right INDICATIONS: PAIN IN RIGHT KNEE TECHNIQUE: Real-time imaging, as well as color and pulse Doppler interrogation, were performed of the lower extr emity deep veins from the inguinal ligament to the popliteal fossa. Attempted visualization of the ca lf veins was performed. COMPARISON: None. FINDINGS: The deep veins are normally compressible, and free of intraluminal thrombus. Color and pu lse Doppler demonstrate normal phasic intraluminal flow. There is normal augmentation response to di stal compression maneuver. IMPRESSION: No deep venous thrombosis of the visualized right lower extremity. Reviewed by: Cordell Christiansen MD on 11/28/2023 7:33 PM PST Approved by: Cordell Christiansen MD on 11/28/2023 7:33 PM PST Station ID: [id number]
== END 2023-11-28 12:34 | disposition home or self-care (01) ==
LOC: DI 12:33
PROVIDERS: ATTEND Internal Medicine
DX: M25.561 Pain in right knee (principal)

== ENCOUNTER 2023-11-28 12:36 | Outpatient (CLI) | payer MEDICAID ==
--- NOTE | 2023-11-28 17:29 | XRAY Report ---
PROCEDURE: Knee 3V RT INDICATIONS: KNEE PAIN TECHNIQUE: views of the knee(s) were acquired. COMPARISON: None. FINDINGS: Bones: No fractures or dislocations. No suspicious bony lesions. Soft tissues: No knee joint effusion. No suspicious soft tissue calcifications or masses. IMPRESSION: Stable radiographic evaluation of the right knee without acute osseous abnormalities or significant d egenerative changes. Reviewed by: Stanley Richards MD on 11/28/2023 5:27 PM PST Approved by: Stanley Richards MD on 11/28/2023 5:27 PM PST Station ID: [id number]
== END 2023-11-28 12:37 | disposition home or self-care (01) ==
LOC: DI 12:36
PROVIDERS: ATTEND Internal Medicine
DX: M25.561 Pain in right knee (principal)

== ENCOUNTER 2023-12-10 07:22 | Outpatient (CLI) | payer MEDICAID ==
--- NOTE | 2023-12-10 21:10 | Ultrasound Report ---
PROCEDURE: Duplex Ext Veins Left INDICATIONS: LEFT KNEE PAIN TECHNIQUE: Real-time imaging, as well as color and pulse Doppler interrogation, were performed of the lower extr emity deep veins from the inguinal ligament to the popliteal fossa. Attempted visualization of the ca lf veins was performed. COMPARISON: None. FINDINGS: The deep veins are normally compressible, and free of intraluminal thrombus. Color and pu lse Doppler demonstrate normal phasic intraluminal flow. There is normal augmentation response to di stal compression maneuver. IMPRESSION: No deep venous thrombosis of the visualized left lower extremity. Reviewed by: Cordell Christiansen MD on 12/10/2023 9:08 PM PST Approved by: Cordell Christiansen MD on 12/10/2023 9:08 PM PST Station ID: [id number]
== END 2023-12-10 07:23 | disposition home or self-care (01) ==
LOC: DI 07:22
PROVIDERS: ATTEND Internal Medicine
DX: M25.562 Pain in left knee (principal)

== ENCOUNTER 2024-03-01 15:24 | Outpatient (CLI) | payer MEDICAID | END 2024-03-01 15:25 | disposition home or self-care (01) | LOC: LAB 15:24 | PROVIDERS: ATTEND Internal Medicine | DX: M79.643 Pain in unspecified hand (principal); Z83.2 Family history of diseases of the blood and blood-forming organs and certain disorders involving the immune mechanism; F84.5 Asperger's syndrome; M13.89 Other specified arthritis, multiple sites; F90.8 Attention-deficit hyperactivity disorder, other type; R00.2 Palpitations; R94.31 Abnormal electrocardiogram [ECG] [EKG] | CPT/HCPCS: 36415; 86015; 86038 ==

== ENCOUNTER 2024-03-11 17:19 | Emergency (ER) | payer MEDICAID ==
--- NOTE | 2024-03-11 17:48 | ED Physician Documentation ---
PD HPI ABD PAIN - Stated complaint Stated Complaint: RT SIDE PX - Chief complaint Chief Complaint: Abd Pain - History obtained from History obtained from: Patient - History of Present Illness Timing - duration: Seconds (4-5) Timing - details: Abrupt onset Quality: Aching, Sharp, Pain Location: RUQ Improved by: Other (nothing) Worsened by: Eating Associated symptoms: Constipation. No: Fever, Nausea, Vomiting, Hematemesis, Diarrhea, Melena, Hematochezia, Dysuria, Hematuria, Chest pain - Additional information Additional information: Patient is a 58-year-old female who to the emergency department stating that she "ate too much" yesterday and had about 4 seconds of right-sided upper abdominal pain. She states that each time she has eaten today she has noted had the same 4 to 5 seconds of sharp, aching abdominal pain. She does not have any pain currently. No nausea or vomiting. No fevers or chills. No urinary symptoms. Worse with eating, nothing makes it better. No nausea, vomiting, diarrhea. She states that she does have constipation but that is chronic and unchanged. 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: None : Incontinence HEENT: Chronic vision loss Psych: Depression, Anxiety, ADD/ADHD Musculoskeletal: Osteoarthritis, Chronic back pain Derm: Herpes zoster, Rosacea - Past Surgical History Past Surgical History: Yes General: Appendectomy, Colonoscopy, EGD Ortho: Carpal Tunnel surgery - Present Medications Home Medications: Ambulatory Orders Medication Instructions Recorded Confirmed Atomoxetine HCl [Strattera] 60 mg PO DAILY 04/06/13 03/11/24 PARoxetine [Paxil] 20 mg PO DAILY 04/06/13 03/11/24 lamoTRIgine [Lamictal Xr] 300 mg PO DAILY 04/06/13 03/11/24 lisinopriL [Lisinopril] 10 mg PO DAILY 02/21/15 03/11/24 Atorvastatin [Lipitor] 40 mg ORAL QPM 11/22/19 03/11/24 Linaclotide [Linzess] 1 tab PO UD 01/21/21 03/11/24 metFORMIN [Glucophage] 500 mg PO DAILY PM 08/19/21 03/11/24 Multivit-Minerals/Folic Acid 200 mcg PO DAILY 03/02/23 03/11/24 [Multivitamin Gummies] Famotidine [Pepcid] 20 mg PO BID #60 tablet 03/11/24 Omeprazole 40 mg PO DAILY 03/11/24 03/11/24 Sucralfate [Carafate] 1 gm PO ACHS #60 tablet 03/11/24 - Allergies Allergies/Adverse Reactions: Allergies Allergy/AdvReac Type Severity Reaction Status Date / Time sertraline [From Zoloft] AdvReac Respiratory Verified 03/11/24 17:31 - Social History Does the pt smoke?: No Smoking Status: Never smoker Does the pt drink ETOH?: No Does the pt have substance abuse?: No - Immunizations Immunizations are current?: Yes - POLST Patient has POLST: No PD ED PE NORMAL - Vitals Vital signs reviewed: Yes - General General: Alert and oriented X 3, No acute distress - HEENT HEENT: PERRL, Moist mucous membranes - Neck Neck: Supple, no meningeal sign - Cardiac Cardiac: RRR, Strong equal pulses - Respiratory Respiratory: No respiratory distress, Clear bilaterally - Abdomen Abdomen: Normal bowel sounds, Soft, Non tender, Non distended - Back Back: No CVA TTP, No spinal TTP - Derm Derm: Warm and dry - Neuro Neuro: Alert and oriented X 3 - Psych Psych: Normal mood, Normal affect Results - Vitals Vitals: Vital Signs - 24 hr 03/11/24 03/11/24 17:27 19:26 Temperature 36.5 C 36.4 C L Heart Rate 95 76 Respiratory 16 15 Rate Blood Pressure 132/81 H 131/58 H O2 Saturation 100 97 Oxygen O2 Source Room air - Labs Labs: Laboratory Tests 03/11/24 03/11/24 18:18 18:18 WBC 6.4 RBC 4.24 Hgb 12.7 Hct 38.4 MCV 90.6 MCH 30.0 MCHC 33.1 RDW 12.2 Plt Count 269 MPV 9.3 Neut # (Auto) 4.5 Lymph # (Auto) 1.3 L [place] # (Auto) 0.4 Eos # (Auto) 0.2 Baso # (Auto) 0.0 Absolute Nucleated RBC 0.00 Nucleated RBC % 0.0 Sodium 139 Potassium 4.2 Chloride 107 Carbon Dioxide 26 Anion Gap 6.0 BUN 23 H Creatinine 0.9 Estimated GFR (MDRD) 65 L Glucose 123 H Calcium 9.1 Total Bilirubin 0.3 AST 17 ALT 21 Alkaline Phosphatase 53 Total Protein 5.6 L Albumin 3.9 Globulin 1.7 L Albumin/Globulin Ratio 2.3 H Lipase 22 PD Medical Decision Making - ED course Complexity details: reviewed results, re-evaluated patient, considered differential, d/w patient ED course: Patient is well-appearing, nontoxic. Afebrile. Symptoms resolved with GI cocktail. No significant lab abnormalities. No indication for emergent CT scan. Tolerating p.o. without difficulty here. Likely gastritis versus duodenitis. She is on a PPI at home, will add Carafate and a PPI. Will have her follow-up with her doctor for further care. Abdomen is soft, nontender nondistended on serial exam. Patient counseled regarding signs and symptoms for which I believe and urgent re-evaluation would be necessary. Patient with good understanding of and agreement to plan and is comfortable going home at this time This document was made in part using voice recognition software. While efforts are made to proofread this document, sound alike and grammatical errors may occur. Departure - Departure Disposition: 01 Home, Self Care Clinical Impression: Abdominal pain Qualifiers: Abdominal location: epigastric Qualified Code(s): R10.13 - Epigastric pain Condition: Good Instructions: ED PUD Vs Gastritis Follow-Up: Leonela Hameed MD [Primary Care Provider] - Within 1 week Prescriptions: Sucralfate [Carafate] 1 gm PO ACHS #60 tablet Famotidine [Pepcid] 20 mg PO BID #60 tablet Comments: Your testing today does not show any acute abnormalities. Please follow-up with your doctor for further care. Please return if you worsen. Your medications were sent to [facility]. Forms: PCP List Discharge Date/Time: 03/11/24 19:27
[2024-03-11] MEDS: SUCRALFATE 1 GM/10 ML UDC PO STA (18:08)
[2024-03-11] MEDS: FAMOTIDINE 20 MG TABLET PO STA (18:08)
[2024-03-11] MEDS: MAG HYDROX/AL HYDROX/SIMETH 30 ML UDC PO STA (18:08)
[2024-03-11 18:27] LABS: BASOPHILS % (AUTO) 0.6 %; EOSINOPHILS # (AUTO) 0.2 10^3/uL (0.0-0.7); EOSINOPHILS % (AUTO) 3.1 %; HCT - HEMATOCRIT 38.4 % (37.0-47.0); HGB - HEMOGLOBIN 12.7 g/dL (12.0-16.0); LYMPHOCYTES # (AUTO) 1.3 10^3/uL (1.5-3.5); LYMPHOCYTES % (AUTO) 19.6 %; MEAN CORPUSCULAR HGB CONC 33.1 g/dL (32.0-36.0); MEAN CORPUSCULAR VOLUME 90.6 fL (81.0-99.0); MEAN PLATELET VOLUME 9.3 fL (7.9-10.8); MONOCYTES # (AUTO) 0.4 10^3/uL (0.0-1.0); MONOCYTES % (AUTO) 6.4 %; NEUTROPHILS # (AUTO) 4.5 10^3/uL (1.5-6.6); NEUTROPHILS % (AUTO) 70.1 %; PLT - PLATELET COUNT 269 10^3/uL (130-450); RED BLOOD COUNT 4.24 10^6/uL (4.20-5.40); RED CELL DISTRIBUTION WIDTH 12.2 % (12.0-15.0); WHITE BLOOD COUNT 6.4 x10^3/uL (4.8-10.8)
[2024-03-11 18:40] LABS: ALBUMIN 3.9 g/dL (3.2-5.5); ALBUMIN/GLOBULIN RATIO 2.3 (1.0-2.2); BILIRUBIN,TOTAL 0.3 mg/dL (0.2-1.0); CALCIUM 9.1 mg/dL (8.5-10.3); CREATININE 0.9 mg/dL (0.6-1.3); POTASSIUM 4.2 mmol/L (3.5-4.5); TOTAL PROTEIN 5.6 g/dL (6.4-8.9)
[2024-03-11 19:31] VITALS: BP 131/58; O2SAT 97
== END 2024-03-11 19:27 | disposition home or self-care (01) ==
LOC: ED 17:19
DX: R10.13 Epigastric pain (principal); I10 Essential (primary) hypertension; E78.00 Pure hypercholesterolemia, unspecified; E11.9 Type 2 diabetes mellitus without complications; Z79.899 Other long term (current) drug therapy; Z79.84 Long term (current) use of oral hypoglycemic drugs
CPT/HCPCS: 36415; 80053; 83690; 85025; 99283; A9270

== ENCOUNTER 2024-03-12 08:35 | Outpatient (CLI) | payer MEDICAID ==
--- NOTE | 2024-03-12 15:32 | Ultrasound Report ---
PROCEDURE: Renal (Retroperitoneal) INDICATIONS: HEMATURIA TECHNIQUE: Real-time scanning was performed of the retroperitoneal organs, with image documentation. COMPARISON: CT abdomen and pelvis dated 01/25/2022. FINDINGS: Kidneys: Kidneys are normal in size. Right kidney measures 10.1 cm long; left kidney measures 10.9 cm long. Right renal cortical thickness is 0.9 cm; left renal cortical thickness is 1.2 cm. Mildly d ilated right renal pelvis is seen measures 1.4 cm in diameter. No solid appearing renal lesion. No le ft-sided hydronephrosis. No gross nephrolithiasis. Bladder: Pre-void bladder volume is 254.76 mL. Post-void residual is 113.41 mL. Pre-void images de monstrate no intraluminal masses or stones. On pre-void images, bilateral ureteral jets are noted wi th color Doppler interrogation. (Of note, ureteral jets may not be detectable in up to 25% of cases due to insufficient differences in specific gravity between ureteral and bladder urine). Miscellaneous: No free abdominal fluid. IMPRESSION: 1. Questionable mild right-sided hydronephrosis versus peripelvic renal cyst. No nephrolithiasis. Nor mal-appearing left kidney. 2. No gross parenchymal abnormality. Small to moderate amount of post void residual. Reviewed by: Gwyn Hahn MD on 03/12/2024 3:31 PM PDT Approved by: Gywn Hahn MD on 03/12/2024 3:31 PM PDT Station ID: [id number]
== END 2024-03-12 08:36 | disposition home or self-care (01) ==
LOC: DI 08:35
PROVIDERS: ATTEND Urology
DX: R31.9 Hematuria, unspecified (principal)

== ENCOUNTER 2024-03-21 13:31 | Outpatient (CLI) | payer MEDICAID ==
[2024-03-21] MEDS ORDERED: iohexoL-300 150 ML BOTTLE ONE (13:51)
[2024-03-21] MEDS: iohexoL-300 150 ML BOTTLE IVP ONE (14:36)
--- NOTE | 2024-03-22 11:53 | CT Report ---
PROCEDURE: IVP INDICATIONS: HEMATURIA CONTRAST: OMNI 300 140ML TECHNIQUE: A [address] of the abdomen and pelvis was performed. Non-contrast and contrast images were recorded and evaluated at appropriate window settings. Images were recorded and evaluated at appropriate windo w settings. Reformats: coronal and sagittal. For radiation dose reduction, the following was used: au tomated exposure control, adjustment of mA and/or kV according to patient size. COMPARISON: None. FINDINGS: Image quality: Diagnostic. Lower chest: Unremarkable. Liver: No solid mass. Gallbladder: Gallbladder is unremarkable. Biliary tree: No intrahepatic or extrahepatic dilation, accounting for age. Spleen: No splenomegaly. Pancreas: No pancreatic ductal dilation. Adrenals: No adrenal nodule. Kidneys and ureters: Both kidneys are normal in size. No hydronephrosis or nephrolithiasis on pre-con trast images. No solid masses or complex cysts which require follow up. The opacified renal calyces and ureters appear normal, without filling defect. Stomach, bowel and peritoneum: No bowel distension. No pathologic free fluid. Appendix is not visuali zed. Surgical suture is present at the distal cecum suggesting prior appendectomy. Abdominal Lymph nodes: No central or retroperitoneal adenopathy. Vessels: Unremarkable. Patent portal vein. Reproductive organs: The uterus and the left ovary are unremarkable. 2 low density cystic lesions are visualized and may be associated with the right ovary. The larger of the 2 cystic lesions measures 3 .8 x 3.0 cm in diameter. An IUD is present within the uterine fundus where expected. Bladder: No abnormal wall thickening, accounting for underdistention. No calcified bladder stones. No filling defect within the opacified bladder. Pelvic Lymph nodes: Unremarkable. Bones: No aggressive osseous abnormality. Other: There is a small fat-containing right inguinal hernia. Multiple phleboliths are scattered thro ughout the pelvis. IMPRESSION: 1. No hydronephrosis, hydroureter, ureterolithiasis, or nephrolithiasis. 2. No suspicious renal enhancement or collecting system filling defects. 3. No acute intra-abdominal findings. Patient is likely status post appendectomy. 4. Right adnexal cysts redemonstrated these at the previously visualized by ultrasound.. In a postmen opausal female annual sonographic follow-up is recommended. Reviewed by: Lucrecia Valdovinos MD on 03/22/2024 11:52 AM PDT Approved by: Lucrecia Valdovinos MD on 03/22/2024 11:52 AM PDT Station ID: [id number]
== END 2024-03-21 13:32 | disposition home or self-care (01) ==
LOC: DI 13:31
PROVIDERS: ATTEND Urology
DX: N94.89 Other specified conditions associated with female genital organs and menstrual cycle (principal); R31.9 Hematuria, unspecified

== ENCOUNTER 2024-03-24 17:37 | Emergency (ER) | payer MEDICAID ==
--- NOTE | 2024-03-24 18:54 | XRAY Report ---
PROCEDURE: Calcaneus 2+V RT INDICATIONS: heel pain TECHNIQUE: Two views of the calcaneus were acquired. COMPARISON: None. FINDINGS: Bones: No fractures or dislocations. No suspicious bony lesions. Small plantar and retrocalcaneal enthesophytes. Soft tissues: No suspicious calcifications. Achilles tendon appears normal. IMPRESSION: No acute bony abnormality. Reviewed by: Madhavi Alanis MD, PhD on 03/24/2024 5:53 PM OLRA Approved by: Madhavi Alanis MD, PhD on 03/24/2024 5:53 PM AKDT Station ID: [id number]
--- NOTE | 2024-03-24 20:28 | ED Physician Documentation ---
History of Present Illness - Stated complaint Stated Complaint: RT HEEL PX - Chief complaint Chief Complaint: Ext Problem - History obtained from History obtained from: Patient - History of Present Illness Timing: How many weeks ago (several weeks) Pain level max: 2 Pain level now: 2 - Additonal information Additional information: 58-year-old female presents to the emergency department with mild heel pain over the past several weeks. She states that she has a history of bone spurs and is concerned that this is her bones for her. No trauma. Has not taken anything for pain. Worse with walking, better with rest. No skin changes. 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 : Incontinence HEENT: Chronic vision loss Psych: Depression, Anxiety, ADD/ADHD Musculoskeletal: Osteoarthritis, Chronic back pain Derm: Herpes zoster, Rosacea - Past Surgical History Past Surgical History: Yes General: Appendectomy, Colonoscopy, EGD Ortho: Carpal Tunnel surgery - Present Medications Home Medications: Ambulatory Orders Medication Instructions Recorded Confirmed Atomoxetine HCl [Strattera] 60 mg PO DAILY 04/06/13 03/11/24 PARoxetine [Paxil] 20 mg PO DAILY 04/06/13 03/11/24 lamoTRIgine [Lamictal Xr] 300 mg PO DAILY 04/06/13 03/11/24 lisinopriL [Lisinopril] 10 mg PO DAILY 02/21/15 03/11/24 Atorvastatin [Lipitor] 40 mg ORAL QPM 11/22/19 03/11/24 Linaclotide [Linzess] 1 tab PO UD 01/21/21 03/11/24 metFORMIN [Glucophage] 500 mg PO DAILY PM 08/19/21 03/11/24 Multivit-Minerals/Folic Acid 200 mcg PO DAILY 03/02/23 03/11/24 [Multivitamin Gummies] Famotidine [Pepcid] 20 mg PO BID #60 tablet 03/11/24 Omeprazole 40 mg PO DAILY 03/11/24 03/11/24 Sucralfate [Carafate] 1 gm PO ACHS #60 tablet 03/11/24 - Allergies Allergies/Adverse Reactions: Allergies Allergy/AdvReac Type Severity Reaction Status Date / Time sertraline [From Zoloft] AdvReac Respiratory Verified 03/24/24 17:55 - Social History Does the pt smoke?: No Smoking Status: Never smoker Does the pt drink ETOH?: No Does the pt have substance abuse?: No - Immunizations Immunizations are current?: Yes - POLST Patient has POLST: No PD ED PE NORMAL - Vitals Vital signs reviewed: Yes - General General: Alert and oriented X 3, No acute distress - Derm Derm: Warm and dry - Extremities Extremities: Other (Normal examination of the right foot. No plantar tenderness. No swelling. No erythema. No skin changes. Neurovascular intact.) - Neuro Neuro: Alert and oriented X 3 Results - Vitals Vitals: Vital Signs - 24 hr 03/24/24 03/24/24 17:51 20:37 Temperature 36.2 C L 36.5 C Heart Rate 97 88 Respiratory 18 16 Rate Blood Pressure 121/77 120/76 O2 Saturation 97 98 Oxygen O2 Source Room air - Rads (name of study) Right calcaneus x-ray Relevant Findings:: Final report received, See rad report PD Medical Decision Making - ED course Complexity details: reviewed results, re-evaluated patient, considered differential, d/w patient ED course: Patient does have a small heel spur. May be the cause of her symptoms. No need for emergency intervention at this time. Ambulating with a normal gait. Can use Motrin and Tylenol for pain at home. Can follow-up with podiatry for further care. Patient counseled regarding signs and symptoms for which I believe and urgent re-evaluation would be necessary. Patient with good understanding of and agreement to plan and is comfortable going home at this time This document was made in part using voice recognition software. While efforts are made to proofread this document, sound alike and grammatical errors may occur. Departure - Departure Disposition: Home, Self Care Clinical Impression: Heel spur Qualifiers: Laterality: right Qualified Code(s): M77.31 - Calcaneal spur, right foot Condition: Good Instructions: ED Heel Spur Follow-Up: Leonela Hameed MD [Primary Care Provider] - Hema Godoy DPM [Physician No Access] - Matilde Cade DPM [Provider Admit Priv/Credential] - Comments: You do have a calcaneal heel spur, this can cause inflammation in your tendons and foot pain. I recommend you follow-up with your doctor and possibly podiatry for further care. Your x-ray reading is below. You can use Motrin or Tylenol as needed for pain. PROCEDURE: Calcaneus 2+V RT INDICATIONS: heel pain TECHNIQUE: Two views of the calcaneus were acquired. COMPARISON: None. FINDINGS: Bones: No fractures or dislocations. No suspicious bony lesions. Small plantar and retrocalcaneal enthesophytes. Soft tissues: No suspicious calcifications. Achilles tendon appears normal. IMPRESSION: No acute bony abnormality. Forms: PCP List Discharge Date/Time: 03/24/24 20:37
[2024-03-24 20:39] VITALS: BP 120/76; O2SAT 98
== END 2024-03-24 20:37 | disposition home or self-care (01) ==
LOC: ED 17:37
DX: M77.31 Calcaneal spur, right foot (principal)
CPT/HCPCS: 99283

== ENCOUNTER 2024-04-12 22:21 | Emergency (ER) | payer MEDICAID ==
[2024-04-12 22:36] VITALS: BP 128/85; O2SAT 99
--- NOTE | 2024-04-12 23:03 | ED Physician Documentation ---
History of Present Illness - Stated complaint Stated Complaint: L ARM PX - Chief complaint Chief Complaint: Ext Problem - History obtained from History obtained from: Patient - Additonal information Additional information: 58-year-old female presents for evaluation of left forearm irritation and swelling. Patient had procedure with removal of IV less than 24 hours ago. Patient reports of bruising feels a lump at the site of the previous catheter. She is concerned that a fragment may have been left behind. Review of Systems Constitutional: denies: Fever, Chills GI: denies: Abdominal Pain, Nausea, Vomiting Skin: denies: Rash, Lesions, Abrasion (s), Laceration (s) Musculoskeletal: reports: Extremity pain. 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 : Incontinence HEENT: Chronic vision loss Psych: Depression, Anxiety, ADD/ADHD Musculoskeletal: Osteoarthritis, Chronic back pain Derm: Herpes zoster, Rosacea - Past Surgical History Past Surgical History: Yes General: Appendectomy, Colonoscopy, EGD Ortho: Carpal Tunnel surgery - Present Medications Home Medications: Ambulatory Orders Medication Instructions Recorded Confirmed Atomoxetine HCl [Strattera] 60 mg PO DAILY 04/06/13 03/11/24 PARoxetine [Paxil] 20 mg PO DAILY 04/06/13 03/11/24 lamoTRIgine [Lamictal Xr] 300 mg PO DAILY 04/06/13 03/11/24 lisinopriL [Lisinopril] 10 mg PO DAILY 02/21/15 03/11/24 Atorvastatin [Lipitor] 40 mg ORAL QPM 11/22/19 03/11/24 Linaclotide [Linzess] 1 tab PO UD 01/21/21 03/11/24 metFORMIN [Glucophage] 500 mg PO DAILY PM 08/19/21 03/11/24 Multivit-Minerals/Folic Acid 200 mcg PO DAILY 03/02/23 03/11/24 [Multivitamin Gummies] Famotidine [Pepcid] 20 mg PO BID #60 tablet 03/11/24 Omeprazole 40 mg PO DAILY 03/11/24 03/11/24 Sucralfate [Carafate] 1 gm PO ACHS #60 tablet 03/11/24 - Allergies Allergies/Adverse Reactions: Allergies Allergy/AdvReac Type Severity Reaction Status Date / Time sertraline [From Zoloft] AdvReac Respiratory Verified 04/12/24 22:35 - Social History Does the pt smoke?: No Smoking Status: Never smoker Does the pt drink ETOH?: No Does the pt have substance abuse?: No - Immunizations Immunizations are current?: Yes - POLST Patient has POLST: No PD ED PE NORMAL - Vitals Vital signs reviewed: Yes - General General: Alert and oriented X 3, No acute distress, Well developed/nourished - Derm Derm: Warm and dry, No rash, Other (2cm radius of bruising around previous IV site in anterior L forearm) - Extremities Extremities: No deformity, No tenderness to palpate, Normal ROM s pain, No edema - Neuro Neuro: Alert and oriented X 3, 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 No evidence of retained foreign body or acute infection. Patient counseled to apply warm compresses to the area, however this should resolve on its own and there is no evidence of retained foreign body at this time. Departure - Departure Disposition: 01 Home, Self Care Clinical Impression: Superficial thrombophlebitis Condition: Stable Instructions: ED Phlebitis Superficial Comments: You have mild irritation around your previous catheter site, however no evidence of retained catheter fragment. Apply warm compresses 3-4 times per day to the area. This should resolve on its own Forms: PCP List Discharge Date/Time: 04/12/24 23:07
== END 2024-04-12 23:07 | disposition home or self-care (01) ==
LOC: ED 22:21
DX: I80.8 Phlebitis and thrombophlebitis of other sites (principal); I10 Essential (primary) hypertension; E78.00 Pure hypercholesterolemia, unspecified; G47.30 Sleep apnea, unspecified; E11.9 Type 2 diabetes mellitus without complications; Z79.899 Other long term (current) drug therapy
CPT/HCPCS: 99281; 99282

== ENCOUNTER 2024-06-03 20:38 | Emergency (ER) | payer MEDICAID ==
--- NOTE | 2024-06-03 21:15 | ED Physician Documentation ---
History of Present Illness - Stated complaint Stated Complaint: RT SIDE PX - Chief complaint Chief Complaint: Abd Pain - Additonal information Additional information: 58-year-old female with history of hypertension, high cholesterol, CPAP use, sleep apnea, seizure disorder on Lamictal, type 2 diabetes, chronic constipation, hemorrhoids, GERD, ADD, depression, anxiety, osteoarthritis, chronic back pain, Hermina zoster. She presents the ER today for 2 days of right thoracic pain. She says that she has not taken any Tylenol ibuprofen for this she has no issues with urination no acute dysuria no hematuria no urinary urgency she is prone to constipation her bowel movements feel regular right now skin is not tender the touch says it feels more deep like musculoskeletal she has had no falls or trauma to the right rib region. PD PAST MEDICAL HISTORY - Past Medical History Cardiovascular: Hypertension, High cholesterol Respiratory: Sleep apnea, CPAP use, Other Neuro: Seizure disorder Endocrine/Autoimmune: Type 2 diabetes GI: GERD, Chronic constipation, Hemorrhoids [employer]CH[employer]ICIAN: None : Incontinence HEENT: Chronic vision loss Psych: Depression, Anxiety, ADD/ADHD Musculoskeletal: Osteoarthritis, Chronic back pain Derm: Herpes zoster, Rosacea - Past Surgical History Past Surgical History: Yes General: Appendectomy, Colonoscopy, EGD Ortho: Carpal Tunnel surgery - Present Medications Home Medications: Ambulatory Orders Medication Instructions Recorded Confirmed Atomoxetine HCl [Strattera] 60 mg PO DAILY 04/06/13 06/03/24 PARoxetine [Paxil] 20 mg PO DAILY 04/06/13 06/03/24 lamoTRIgine [Lamictal Xr] 300 mg PO DAILY 04/06/13 06/03/24 lisinopriL [Lisinopril] 10 mg PO DAILY 02/21/15 06/03/24 Atorvastatin [Lipitor] 40 mg ORAL QPM 11/22/19 06/03/24 Linaclotide [Linzess] 1 tab PO UD 01/21/21 06/03/24 metFORMIN [Glucophage] 500 mg PO DAILY PM 08/19/21 06/03/24 Multivit-Minerals/Folic Acid 200 mcg PO DAILY 03/02/23 06/03/24 [Multivitamin Gummies] Famotidine [Pepcid] 20 mg PO BID #60 tablet 03/11/24 06/03/24 Omeprazole 40 mg PO DAILY 03/11/24 06/03/24 Sucralfate [Carafate] 1 gm PO ACHS #60 tablet 03/11/24 06/03/24 - Allergies Allergies/Adverse Reactions: Allergies Allergy/AdvReac Type Severity Reaction Status Date / Time sertraline [From Zoloft] AdvReac Respiratory Verified 06/03/24 21:07 - Social History Does the pt smoke?: No Smoking Status: Never smoker Does the pt drink ETOH?: No Does the pt have substance abuse?: No - Immunizations Immunizations are current?: Yes - POLST Patient has POLST: No PD ED PE NORMAL - Vitals Vital signs reviewed: Yes - General General: Alert and oriented X 3, No acute distress, Well developed/nourished - Cardiac Cardiac: RRR, No murmur, No gallop, Strong equal pulses - Respiratory Respiratory: No respiratory distress, Clear bilaterally - Abdomen Abdomen: Normal bowel sounds, Soft, Non tender, Non distended, No organomegaly - Back Back: No CVA TTP, No spinal TTP, Other (Tenderness with palpation to the right mid upper posterior back with no skin changes) - Derm Derm: Normal color, Warm and dry, No rash Results - Vitals Vitals: Vital Signs - 24 hr 06/03/24 06/03/24 06/03/24 21:00 21:46 22:14 Temperature 37.2 C 36.9 C Heart Rate 89 78 79 Respiratory 18 16 16 Rate Blood Pressure 137/78 H 122/89 H 127/79 O2 Saturation 99 100 98 Oxygen O2 Source Room air - Labs Labs: Laboratory Tests 06/03/24 06/03/24 21:13 21:13 WBC 6.3 RBC 4.39 Hgb 13.2 Hct 40.3 MCV 91.8 MCH 30.1 MCHC 32.8 RDW 12.4 Plt Count 253 MPV 8.9 Neut # (Auto) 4.3 Lymph # (Auto) 1.4 L [place] # (Auto) 0.4 Eos # (Auto) 0.2 Baso # (Auto) 0.0 Absolute Nucleated RBC 0.00 Nucleated RBC % 0.0 Sodium 139 Potassium 3.7 Chloride 104 Carbon Dioxide 29 Anion Gap 6.0 BUN 20 Creatinine 0.9 Estimated GFR (MDRD) 65 L Glucose 102 Calcium 9.7 Phosphorus 4.2 Magnesium 1.8 Total Bilirubin 0.5 AST 21 ALT 25 Alkaline Phosphatase 68 Total Protein 7.1 Albumin 4.4 Globulin 2.7 Albumin/Globulin Ratio 1.6 PD Medical Decision Making - ED course ED course: 58-year-old female presents emergency department for right posterior rib pain. Patient says that she did notice that it started to hurt after she was wearing a bra that was too tight. Since she has removed the bra and put a new bra on she says that the pain has gotten significantly better but her main concern was coming into the ER for possible x-rays as she may have broken her rib without knowing. She has no difficulty breathing her lung sounds are clear bilaterally and she continues to deny any trauma or falls to that right back region. She denies any chest pain or shortness of breath. I informed her that labs and imaging are not warranted she has not tried any Tylenol or ibuprofen for any pain or discomfort she describes it as a muscle spasm which is likely the source of the patient's pain. She was given an injection of Toradol here in the emergency department and she reports complete alleviation of symptoms. She is told to alternate between Tylenol ibuprofen for pain and discomfort and to follow-up with primary care provider for possible physical therapy ER return precautions given patient is safe for discharge at this time. Departure - Departure Disposition: 01 Home, Self Care Clinical Impression: Muscle spasm Instructions: ED Spasm Back No Trauma Comments: I am quite confident that the pain you are experiencing in your right upper back region is most likely related to muscle spasm. Please consider alternating between 1000 mg of Tylenol and 600 mg of ibuprofen for pain and discomfort as well as apply ice 20 minutes at a time 1 hour off to help with the muscle spasms that you are experiencing. There is no indication for chest x-rays as I am not concerned about your lungs, your breathing and you have had no trauma to your back to make me concern for possible rib fracture. Please follow-up with your primary care provider as needed outpatient for further evaluation. Forms: PCP List Discharge Date/Time: 06/03/24 22:15
[2024-06-03 21:19] LABS: BASOPHILS % (AUTO) 0.6 %; EOSINOPHILS # (AUTO) 0.2 10^3/uL (0.0-0.7); EOSINOPHILS % (AUTO) 3.6 %; HCT - HEMATOCRIT 40.3 % (37.0-47.0); HGB - HEMOGLOBIN 13.2 g/dL (12.0-16.0); LYMPHOCYTES # (AUTO) 1.4 10^3/uL (1.5-3.5); MEAN CORPUSCULAR HEMOGLOBIN 30.1 pg (27.0-31.0); MEAN CORPUSCULAR HGB CONC 32.8 g/dL (32.0-36.0); MEAN CORPUSCULAR VOLUME 91.8 fL (81.0-99.0); MEAN PLATELET VOLUME 8.9 fL (7.9-10.8); MONOCYTES # (AUTO) 0.4 10^3/uL (0.0-1.0); MONOCYTES % (AUTO) 5.7 %; NEUTROPHILS # (AUTO) 4.3 10^3/uL (1.5-6.6); NEUTROPHILS % (AUTO) 67.9 %; PLT - PLATELET COUNT 253 10^3/uL (130-450); RED BLOOD COUNT 4.39 10^6/uL (4.20-5.40); RED CELL DISTRIBUTION WIDTH 12.4 % (12.0-15.0); WHITE BLOOD COUNT 6.3 x10^3/uL (4.8-10.8)
[2024-06-03] MEDS: SODIUM CHLORIDE 0.9% 1,000 ML IV STA (21:38)
[2024-06-03 21:41] LABS: ALBUMIN 4.4 g/dL (3.2-5.5); ALBUMIN/GLOBULIN RATIO 1.6 (1.0-2.2); BILIRUBIN,TOTAL 0.5 mg/dL (0.2-1.0); CALCIUM 9.7 mg/dL (8.5-10.3); CREATININE 0.9 mg/dL (0.6-1.3); MAGNESIUM 1.8 mg/dL (1.7-2.3); PHOSPHORUS 4.2 mg/dL (2.5-5.0); POTASSIUM 3.7 mmol/L (3.5-4.5); TOTAL PROTEIN 7.1 g/dL (6.4-8.9)
[2024-06-03] MEDS: KETOROLAC 30 MG/ML VIAL IM STA (21:41)
[2024-06-03] MEDS: ACETAMINOPHEN 500 MG TABLET PO STA (21:44)
[2024-06-03] MEDS: KETOROLAC 15 MG/ML VIAL IVP STA (22:01)
[2024-06-03 22:25] VITALS: BP 127/79; O2SAT 98
== END 2024-06-03 22:15 | disposition home or self-care (01) ==
LOC: ED 20:38
DX: M62.830 Muscle spasm of back (principal); I10 Essential (primary) hypertension; E78.00 Pure hypercholesterolemia, unspecified; G47.30 Sleep apnea, unspecified; G40.909 Epilepsy, unspecified, not intractable, without status epilepticus; E11.9 Type 2 diabetes mellitus without complications; Z79.84 Long term (current) use of oral hypoglycemic drugs; Z79.899 Other long term (current) drug therapy
CPT/HCPCS: 36415; 80053; 83735; 84100; 85025; 96374; 99283; A9270; 82009; 82803

== ENCOUNTER 2024-06-09 09:32 | Outpatient (CLI) | payer MEDICAID | END 2024-06-09 09:33 | disposition home or self-care (01) | LOC: LAB 09:32 | PROVIDERS: ATTEND Psychiatry & Neurology Neurology | DX: Z51.81 Encounter for therapeutic drug level monitoring (principal) | CPT/HCPCS: 36415; 80175 ==